=== PATIENT | female | born 1975 | race Caucasian/White ===

== ENCOUNTER 2017-04-11 17:34 | Emergency (ER) | payer MEDICAID, OTHER ==
[~2017-04-11] VITALS: Ht 167.6 cm; Wt 118.2 kg
[~2017-04-11 17:34] MED LIST: /PANT40TA PO; ATARAX PO; BUSP1TAB PO; CALC25TA PO; CIPR250T2 PO; CIPR500T89 PO; CITA10TA2 PO; DRIS1CAP PO; EXCETAB80 PO; HYDR50TA70 PO; IBUP600T26 PO; IBUP80TA OR; LEVO25TA4 PO; MELO7.5T7 PO; MINI1CAP PO; MINI2CAP PO; PAROXETINE PO; PERC5TAB PO; PYRI100T PO; REME15TA PO; RISP1TAB42 PO; SERO1TAB3 PO; SERO50TA PO; TIZA4CAP3 PO; VIST50CA PO; VITA250L PO; VITA500T53 PO; VITMTA PO; XANA0.25 PO; ZOLO100T PO
[2017-04-11] MEDS ORDERED: TOPI100T9 (17:56)
[2017-04-11] MEDS ORDERED: LATU1TAB PO (17:56)
[2017-04-11] MEDS ORDERED: OXYC-517 (17:56)
[2017-04-11] MEDS ORDERED: ONDA4TAB6 (17:56)
[2017-04-11] MEDS ORDERED: LAMO150T (17:56)
[2017-04-11] MEDS ORDERED: NS 1,000 ML IV ONE (23:45)
[2017-04-11] MEDS ORDERED: MAGNESIUM CITRATE 300 ML BTL PO ONE (23:45)
[2017-04-12] MEDS ORDERED: PERCOCET 5MG/325MG TAB PO ONE (00:15)
[2017-04-12 00:44] LABS: BASO % 0.5 % (0.0-1.0); EOS # 0.1 10^3/uL (0.0-0.50); EOS % 1.2 % (0.0-3.0); IMMATURE GRANULOCYTE % 0.3 % (0-0); LYMPH # 1.7 10^3/uL (1.5-4.5); LYMPH % 18.7 % (24.0-44.0); MEAN CORPUSCULAR HEMOGLOBIN 27.7 pg (27.0-33.0); MEAN CORPUSCULAR HGB CONC 31.8 g/dl (32.0-36.5); MEAN CORPUSCULAR VOLUME 87.3 fl (80.0-96.0); MONO # 0.5 10^3/uL (0.0-0.8); MONO % 5.4 % (0.0-5.0); NEUTROPHILS # 6.5 10^3/uL (1.8-7.7); NEUTROPHILS % 73.9 % (36.0-66.0); PLATELET COUNT, AUTOMATED 202 10^3/uL (150-450); RED CELL DISTRIBUTION WIDTH 13.3 % (11.5-14.5); WHITE BLOOD COUNT 8.9 10^3/uL (4.0-10.0)
[2017-04-12 01:07] LABS: ALBUMIN 3.5 GM/DL (3.2-5.2); ALBUMIN/GLOBULIN RATIO 0.81 (1.00-1.93); ALKALINE PHOSPHATASE 113 U/L (45-117); ALT/SGPT 16 U/L (12-78); ANION GAP 8 MEQ/L (8-16); AST/SGOT 9 U/L (7-37); BILIRUBIN,TOTAL 0.5 MG/DL (0.2-1.0); BLOOD UREA NITROGEN 9 MG/DL (7-18); CALCIUM LEVEL 9.2 MG/DL (8.5-10.1); CARBON DIOXIDE LEVEL 24 MEQ/L (21-32); CHLORIDE LEVEL 105 MEQ/L (98-107); CREATININE FOR GFR 0.67 MG/DL (0.55-1.02); GLOMERULAR FILTRATION RATE > 60.0 (>58); GLUCOSE, FASTING 77 MG/DL (70-105); POTASSIUM SERUM 3.7 MEQ/L (3.5-5.1); SODIUM LEVEL 137 MEQ/L (136-145); TOTAL PROTEIN 7.8 GM/DL (6.4-8.2)
--- NOTE | 2017-04-12 02:00 | REPUSA ---
CLINICAL HISTORY: Abdominal pain. TECHNIQUE: Multiple axial, sagittal and coronal CT images were obtained through the abdomen and pelvi s without administration of oral or IV contrast material. COMMENTS: Prior gastric bypass surgery. The liver is of uniform attenuation without mass or defect. There is no intra or extrahepatic biliary ductal dilatation. The spleen is normal. The gallbladder is surgically absent. The pancreas is of no rmal contour and attenuation characteristics. There is no evidence of adrenal mass. 3.5 cm right renal well-defined hypodense lesion, probably a cyst. The kidneys are otherwise normal in size, shape and configuration. No renal or ureteral calculi are i dentified. There is no hydroureter or hydronephrosis. There is no evidence for appendicitis. There is no bowel wall thickening. No evidence for small or la rge bowel obstruction. There is no evidence of abdominal ascites or lymphadenopathy. There is no evidence of intrinsic or extrinsic bladder mass. There is no pelvic ascites or lymphadeno cheryl. Images of the lung bases show no evidence of pleural or parenchymal mass. There are no pleural effusi ons. The bony structures are free of lytic or blastic lesions. Multilevel degenerative changes are seen in volving the thoracolumbar spine. Scattered calcifications are seen involving the aorta and major branches compatible with atherosclero sis. IMPRESSION: Gastric bypass surgery. Cholecystectomy. Right renal well-defined hypodense lesion, probably a cyst. Thank you for your kind referral of this patient.
[2017-04-12] MEDS ORDERED: ZOFR4TAB3 PO (02:15)
[2017-04-12 02:30] VITALS: BP 142/66
--- NOTE | 2017-04-12 07:29 | ED PDOC ---
Post-Departure Follow-Up radiology rpeort faxed to Rudolph Evans Sarah MD Apr 12, 2017 07:28
--- NOTE | 2017-04-12 08:22 | REP ---
Acute abdominal series three views including PA chest and supine upright abdomen: The PA chest: Comparisons 08/13/2008. The lung wood are clear. Cardiac size is normal. The rhonda, mediastinum, and bony thorax unremarkable. There is no free subdiaphragmatic air. No interval change. Impression: Negative PA chest. Abdomen, supine upright views: Comparison is 2010. The bowel gas pattern is normal. There are no calcifications. Skeletal structures and soft tissues are otherwise unremarkable. There are surgical clips in the abdominal right upper quadrant. Impression: Normal bowel gas pattern. Signed by Danial Hall MD 04/12/2017 08:14 A
== END 2017-04-12 02:31 | disposition home or self-care (01) ==
LOC: M ED 17:34
DX: K59.00 Constipation, unspecified (principal)

== ENCOUNTER → 2017-05-09 | Outpatient (CLI) | payer OTHER ==
[~2017-05-09] MED LIST changes: +ISOVUE-370 76% 100ML VIAL (Q9967) As Ordered ONE; +LAMO150T; +LATU1TAB PO; +ONDA4TAB6; +OXYC-517; +TOPI100T9; +ZOFR4TAB3 PO
== END ==
LOC: M RAD 07:59
PROVIDERS: ATTEND Internal Medicine Rheumatology
DX: R63.4 Abnormal weight loss (principal)

== ENCOUNTER → 2017-05-31 | Outpatient (CLI) | payer OTHER ==
--- NOTE | 2017-06-01 17:38 | REP ---
CT angiogram of the abdomen and pelvis with IV contrast: History: Unintentional weight loss. Abdominal pain. Comparison CT abdomen and pelvis study is from April 12, 2017. CT contrast dose: 100 ml of intravenous Isovue 370. CT technique: Helical scanning is acquired. Axial 3 mm images are reformatted. Coronal and sagittal maximum intensity projection images are generated with 3-D workstation. Surface rendered 3-D imaging is generated and viewed rotationally. In addition curved axis MPR images are generated along the course of the iliac arteries bilaterally. Nonvascular findings: Clips and sutures are seen in the upper abdomen related to patient's previous gastric bypass procedure and cholecystectomy procedure. Again noted is a simple cyst in the upper pole of the right kidney measuring 3.[address] angiographic vascular findings: A retroaortic let renal vein is seen draining into the inferior vena cava at the level of the lower pole of the kidneys. A smaller normally situated left renal vein is also seen anterior to the aorta. The renal arteries are singular and nonstenotic. The suprarenal and infrarenal abdominal aorta is widely patent and normal in caliber. The celiac and superior mesenteric arteries are unremarkable. The inferior mesenteric artery is patent and nonstenotic as well. Common iliac, internal iliac and external iliac arteries are widely patent. Maximum intensity projection, curved MPR, and 3-D surface rendered imaging shows no additional abnormality. There is no evidence of arterial stenosis or occlusion. Impression: 1. 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 No evidence of visceral or aortic or iliac stenosis or occlusion. 2. Right renal cyst. 3. Postoperative changes including gastric bypass and cholecystectomy. Signed by Arnold Pimentel MD 06/02/2017 08:02 A
== END ==
LOC: M RAD 17:24
PROVIDERS: ATTEND Internal Medicine Rheumatology
DX: R10.9 Unspecified abdominal pain (principal); R63.4 Abnormal weight loss; N28.1 Cyst of kidney, acquired; Z98.84 Bariatric surgery status
CPT/HCPCS: 74174; Q9967

== ENCOUNTER → 2018-02-07 | Outpatient (REF) | payer OTHER, MEDICAID ==
[2018-02-07 14:41] LABS: BASO # 0.1 10^3/uL (0.0-0.2); BASO % 0.7 % (0.0-1.0); EOS # 0.2 10^3/uL (0.0-0.50); EOS % 1.7 % (0.0-3.0); HEMOGLOBIN 14.3 g/dl (12.0-15.5); IMMATURE GRANULOCYTE % 0.2 % (0-3.0); LYMPH # 2.9 10^3/uL (1.5-4.5); LYMPH % 28.8 % (24.0-44.0); MEAN CORPUSCULAR HGB CONC 33.3 g/dl (32.0-36.5); MEAN CORPUSCULAR VOLUME 84.3 fl (80.0-96.0); MONO # 0.6 10^3/uL (0.0-0.8); MONO % 5.7 % (0.0-5.0); NEUTROPHILS # 6.4 10^3/uL (1.8-7.7); NEUTROPHILS % 62.9 % (36.0-66.0); PLATELET COUNT, AUTOMATED 222 10^3/uL (150-450); RED CELL DISTRIBUTION WIDTH 13.2 % (11.5-14.5); WHITE BLOOD COUNT 10.1 10^3/uL (4.0-10.0)
[2018-02-07 14:48] LABS: ALBUMIN/GLOBULIN RATIO 1.18 (1.00-1.93); ALKALINE PHOSPHATASE 92 U/L (45-117); ALT/SGPT 16 U/L (12-78); ANION GAP 10 MEQ/L (8-16); AST/SGOT 11 U/L (7-37); BILIRUBIN,TOTAL 0.6 MG/DL (0.2-1.0); BLOOD UREA NITROGEN 7 MG/DL (7-18); CALCIUM LEVEL 8.9 MG/DL (8.5-10.1); CARBON DIOXIDE LEVEL 24 MEQ/L (21-32); CHLORIDE LEVEL 106 MEQ/L (98-107); CREATININE FOR GFR 0.74 MG/DL (0.55-1.30); GLOMERULAR FILTRATION RATE > 60.0 (>58); GLUCOSE, FASTING 88 MG/DL (70-100); POTASSIUM SERUM 4.1 MEQ/L (3.5-5.1); SODIUM LEVEL 140 MEQ/L (136-145); TOTAL PROTEIN 7.4 GM/DL (6.4-8.2)
== END ==
LOC: M SFHCLERA 12:32
DX: N39.0 Urinary tract infection, site not specified (principal)
CPT/HCPCS: 80053

== ENCOUNTER 2018-07-18 12:17 | Day surgery (SDC) | payer OTHER, MEDICAID ==
[~2018-07-18] VITALS: Ht 167.6 cm; Wt 112.0 kg
[~2018-07-18 12:17] MED LIST changes: +CLON0.5T8 PO; +COLC1TAB14 PO; +DICY10CA13 PO; +FENT12DI8; +GABA-843 PO; +HYDR200T3 PO; -ISOVUE-370 76% 100ML VIAL (Q9967) As Ordered ONE; -LAMO150T; +LAMO150T2 PO; +LEVO25TA5 PO; +NS 1,000 ML IV ONE; +OMEP20CA3 PO; +ONDA4TAB6 PO; +SERT25TA PO; +TIZA4CAP PO; -TIZA4CAP3 PO; -TOPI100T9; +TOPI100T9 PO; +ZOFR4TAB14 PO; -ZOFR4TAB3 PO
[2018-07-18] MEDS ORDERED: PROPOFOL 200 MG/20 ML VIAL As Ordered ONE (13:32)
[2018-07-18] MEDS ORDERED: LIDOCAINE 2% INJ 100 MG/5 ML SDV (FOR ANES.) As Ordered ONE (13:32)
[2018-07-18] MEDS ORDERED: fentaNYL 100 MCG/2 ML INJECTION (J3010) As Ordered ONE (13:33)
[2018-07-18] MEDS ORDERED: GLYCOPYRROLATE INJ 0.2 MG/ML 2 ML VIAL As Ordered ONE (13:35)
--- NOTE | 2018-07-18 13:49 | ROOR ---
Patient Name: Daxa Booth Procedure Date: 07/18/2018 1:29 PM Date of : 1975 Age: 43 Room: [facility] Gender: Female Note Status: Finalized Procedure: Upper GI endoscopy Indications: Epigastric abdominal pain, Abdominal pain in the left upper quadrant Providers: Ilir ALICEA MD Referring MD: Rudolph HERNANDEZ Requesting Provider: Medicines: Monitored Anesthesia Care Complications: No immediate complications. Procedure: Pre-Anesthesia Assessment: - The heart rate, respiratory rate, oxygen saturations, blood pressure, adequacy of pulmonary ventilation, and response to care were monitored throughout the procedure. The Endoscope was introduced through the mouth, and advanced to the jejunum. The upper GI endoscopy was accomplished without difficulty. The patient tolerated the procedure well. Findings: The examined esophagus was normal. Evidence of a Nikki-en-Y gastrojejunostomy was found. The gastrojejunal anastomosis was characterized by healthy appearing mucosa. The exam of the stomach was otherwise normal. The examined jejunum was normal. Impression: - Normal esophagus. - Nikki-en-Y gastrojejunostomy with gastrojejunal anastomosis characterized by healthy appearing mucosa. - Otherwise normal stomach. - Normal examined jejunum. - No specimens collected. Recommendation: - Observe patient's clinical course. - Continue present medications. Ilir Alicea MD Ilir ALICEA MD 07/18/2018 1:48:49 PM This report has been signed electronically. Number of Addenda: 0 Note Initiated On: 07/18/2018 1:29 PM Estimated Blood Loss: Estimated blood loss: none.
--- NOTE | 2018-07-18 14:02 | ROOR ---
Patient Name: Daxa Booth Procedure Date: 07/18/2018 1:30 PM Date of : 1975 Age: 43 Room: [facility] Gender: Female Note Status: Finalized Procedure: Colonoscopy Indications: Generalized abdominal pain, Change in bowel habits Providers: Ilir ALICEA MD Referring MD: Rudolph HERNANDEZ Requesting Provider: Medicines: Monitored Anesthesia Care Complications: No immediate complications. Procedure: Pre-Anesthesia Assessment: - The heart rate, respiratory rate, oxygen saturations, blood pressure, adequacy of pulmonary ventilation, and response to care were monitored throughout the procedure. The Colonoscope was introduced through the anus and advanced to 10 cm into the ileum. The colonoscopy was performed without difficulty. The patient tolerated the procedure well. The quality of the bowel preparation was adequate and fair. Findings: The perianal and digital rectal examinations were normal. The terminal ileum appeared normal. Small Internal Hemorrhoids. The entire examined colon appeared normal on direct and retroflexion views. Impression: - Preparation of the colon was fair. - Small Internal Hemorrhoids. - The entire colon is normal on direct and retroflexion views. - The examined portion of the ileum was normal. - No specimens collected. - (Irritable Bowel Syndrome/IBS suspected.) Recommendation: - Use Levbid 0.375 mg Extended Tabs 1-2 tabs PO every 8-12 hours. - Discontinue Bentyl (dicyclomine). - (the script was sent to your pharmacy on file) Ilir Alicea MD Ilir ALICEA MD 07/18/2018 2:01:57 PM This report has been signed electronically. Number of Addenda: 0 Note Initiated On: 07/18/2018 1:30 PM Estimated Blood Loss: Estimated blood loss: none.
[2018-07-18 14:30] VITALS: BP 142/65
== END 2018-07-18 14:42 | disposition home or self-care (01) ==
LOC: M OPP 12:17
PROVIDERS: ATTEND Internal Medicine Gastroenterology
DX: R19.4 Change in bowel habit (principal); R10.84 Generalized abdominal pain; R10.13 Epigastric pain; R10.12 Left upper quadrant pain; Z98.0 Intestinal bypass and anastomosis status; Z79.899 Other long term (current) drug therapy; Z88.0 Allergy status to penicillin; Z88.5 Allergy status to narcotic agent; Z98.84 Bariatric surgery status; Z91.013 Allergy to seafood; Z91.018 Allergy to other foods; Z87.891 Personal history of nicotine dependence
CPT/HCPCS: 43235; 45378; J3010

== ENCOUNTER 2019-01-10 23:31 | Inpatient (IN) | payer OTHER, MEDICAID ==
[~2019-01-10] VITALS: Ht 167.6 cm; Wt 108.2 kg
[~2019-01-10 23:31] MED LIST changes: -/PANT40TA PO; -NS 1,000 ML IV ONE; -OMEP20CA3 PO; +OMEP20CA4 PO; +PROT1TAB2 PO; -SERT25TA PO; +SERT25TA85 PO
[2019-01-11 00:31] LABS: HEMOGLOBIN 14.1 g/dl (12.0-15.5); MEAN CORPUSCULAR HEMOGLOBIN 27.9 pg (27.0-33.0); PLATELET COUNT, AUTOMATED 172 10^3/uL (150-450); RED BLOOD COUNT 5.06 10^6/uL (4.00-5.40); WHITE BLOOD COUNT 6.4 10^3/uL (4.0-10.0)
[2019-01-11 00:35] LABS: AMPHETAMINES LEVEL URINE NEGATIVE (NEGATIVE); BARBITURATES URINE NEGATIVE (NEGATIVE); BENZODIAZEPINES URINE POSITIVE (NEGATIVE); CANNABINOIDS URINE POSITIVE (NEGATIVE); COCAINE METABOLITE URINE NEGATIVE (NEGATIVE); METHADONE URINE NEGATIVE (NEGATIVE); OPIATES URINE NEGATIVE (NEGATIVE); PHENCYCLIDINE URINE NEGATIVE (NEGATIVE)
[2019-01-11 00:48] LABS: HCG, SERUM QUALITATIVE NEGATIVE (NEGATIVE)
[2019-01-11 01:09] LABS: ACETAMINOPHEN LEVEL < 2.0 UG/ML (10.0-30.0); ALBUMIN 3.9 GM/DL (3.2-5.2); ALT/SGPT 23 U/L (12-78); BILIRUBIN,DIRECT < 0.1 MG/DL (0.0-0.2); BILIRUBIN,TOTAL 0.4 MG/DL (0.2-1.0); BLOOD UREA NITROGEN 12 MG/DL (7-18); CALCIUM LEVEL 8.6 MG/DL (8.5-10.1); CARBON DIOXIDE LEVEL 24 MEQ/L (21-32); CHLORIDE LEVEL 112 MEQ/L (98-107); CREATININE FOR GFR 0.87 MG/DL (0.55-1.30); ETHYL ALCOHOL (ETHANOL) < 0.003 % (0.000-0.010); GLOMERULAR FILTRATION RATE > 60.0 (>58); GLUCOSE, FASTING 73 MG/DL (70-100); POTASSIUM SERUM 3.9 MEQ/L (3.5-5.1); SALICYLATE LEVEL < 1.7 MG/DL (5.0-30.0); SODIUM LEVEL 142 MEQ/L (136-145); THYROID STIMULATING HORMONE 0.939 uIU/ML (0.358-3.740); TOTAL PROTEIN 7.4 GM/DL (6.4-8.2)
[2019-01-11] MEDS ORDERED: CLON1TAB8 PO (01:17)
[2019-01-11] MEDS ORDERED: DULO60CA35 PO (01:19)
[2019-01-11] MEDS ORDERED: LORA-436 PO (01:19)
[2019-01-11] MEDS ORDERED: LYRI200C PO (01:19)
[2019-01-11] MEDS ORDERED: NICOTINE 21MG/24HR 1 EA TRANSDERMAL TD PRN (02:00)
[2019-01-11] MEDS ORDERED: MOM 30ML SUSPENSION UDC PO PRN (02:00)
[2019-01-11] MEDS ORDERED: MAALOX 30 ML SUSP *UDC PO PRN (02:00)
[2019-01-11] MEDS ORDERED: OLANZapine ORAL DISINTEGRATING TAB 5MG PO PRN (02:00)
[2019-01-11] MEDS ORDERED: LORazepam 1 MG TAB PO STA (02:53)
[2019-01-11 04:44] VITALS: BP 120/76
[2019-01-11] MEDS: LURASIDONE 20 MG TAB (LATUDA) PO SCH (09:00)
[2019-01-11] MEDS: OMEPRAZOLE 20 MG CAP PO SCH (09:00)
[2019-01-11] MEDS: DULoxetine 30 MG CAP (CYMBALTA) PO SCH (09:00)
[2019-01-11] MEDS: LORATADINE 10 MG TAB PO SCH (09:00)
[2019-01-11] MEDS: SERTRALINE 100 MG TAB PO SCH (09:00)
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
[2019-01-11 18:00] VITALS: BP 122/93
[2019-01-11] MEDS ORDERED: DICYCLOMINE 10 MG CAP PO PRN (18:30)
[2019-01-11] MEDS ORDERED: ONDANSETRON 4 MG ORAL DISINTEGRATING TAB (Q0162 PER 1MG) PO PRN (18:30)
[2019-01-11] MEDS ORDERED: COLCHICINE 0.6 MG TAB PO PRN (18:30)
[2019-01-11] MEDS: GABAPENTIN 300 MG CAP PO PRN (21:19)
[2019-01-11] MEDS: clonazePAM 1 MG TAB PO PRN (21:19)
[2019-01-11] MEDS: PREGABALIN 100 MG CAP (LYRICA) PO SCH (21:20)
[2019-01-11] MEDS: HYDROXYCHLOROQUINE 200 MG TAB PO SCH (21:20)
[2019-01-11] MEDS: TOPIRAMATE (TopAMAX) 100 MG TAB PO SCH (21:20)
[2019-01-12] MEDS: traZODone 50 MG TAB PO PRN (00:24)
[2019-01-12] MEDS: LEVOTHYROXINE 25MCG TABLET (0.025MG) PO SCH (06:14)
[2019-01-12 06:44] VITALS: BP 120/75
[2019-01-12] MEDS: HYDROXYCHLOROQUINE 200 MG TAB PO SCH ×2 (08:01→21:04)
[2019-01-12] MEDS: OMEPRAZOLE 20 MG CAP PO SCH (08:01)
[2019-01-12] MEDS: SERTRALINE 100 MG TAB PO SCH (08:01)
[2019-01-12] MEDS: LORATADINE 10 MG TAB PO SCH (08:01)
[2019-01-12] MEDS: PREGABALIN 100 MG CAP (LYRICA) PO SCH ×2 (08:02→21:04)
[2019-01-12] MEDS: LURASIDONE 20 MG TAB (LATUDA) PO SCH (08:02)
[2019-01-12] MEDS: DULoxetine 30 MG CAP (CYMBALTA) PO SCH (08:02)
[2019-01-12 14:08] LABS: APPEARANCE, URINE CLOUDY (CLEAR); BACTERIA, URINE AUTO 1+ (NEGATIVE); BILIRUBIN, URINE AUTO NEGATIVE (NEGATIVE); BLOOD, URINE BLOOD NEGATIVE (NEGATIVE); CALCIUM OXALATE CRYSTALS SMALL; COLOR, URINE AMBER (YELLOW); GLUCOSE, URINE (UA) AUTO NEGATIVE (NEGATIVE); KETONE, URINE AUTO NEGATIVE (NEGATIVE); LEUKOCYTE ESTERASE, URINE AUTO 3+ (NEGATIVE); MUCUS, URINE LARGE (NEGATIVE); NITRITE, URINE AUTO NEGATIVE (NEGATIVE); PROTEIN, URINE AUTO 1+ mg/dL (NEGATIVE); RBC, URINE AUTO 16 /HPF (0-3); SPECIFIC GRAVITY URINE AUTO 1.021 (1.002-1.035); SQUAMOUS EPITHELIAL CELL UR AU 9 /HPF (0-6); UROBILINOGEN, URINE AUTO 0.2 mg/dL (0.0-2.0); WBC, URINE AUTO 41 /HPF (0-3)
[2019-01-12] MEDS: GABAPENTIN 300 MG CAP PO PRN (15:19)
[2019-01-12] MEDS: ACETAMINOPHEN TAB 650MG DOSE (2X325MG) PO PRN (15:20)
[2019-01-12 18:00] VITALS: BP 133/76
--- NOTE | 2019-01-12 19:28 | REPVR ---
EXAM: CT Head Without Contrast EXAM DATE/TIME: 01/12/2019 5:41 PM CLINICAL HISTORY: 43 years old, female; Injury or trauma; Fall; Initial encounter; Blunt trauma (contusions or hematomas); Additional info: Status post fall TECHNIQUE: Imaging protocol: Computed tomography images of the head without contrast. Radiation optimization: All CT scans at this facility use at least one of these dose optimization techniques: automated exposure control; mA and/or kV adjustment per patient size (includes targeted exams where dose is matched to clinical indication); or iterative reconstruction. COMPARISON: CT Head without contrast 07/27/2013 11:04 AM FINDINGS: Brain: No hemorrhage. No mass effect. No evolving territorial infarct. Ventricles: No ventriculomegaly. Bones/joints: Unremarkable. No acute fracture. Sinuses: Visualized sinuses are unremarkable. No fluid levels. Mastoid air cells: Visualized mastoid air cells are well aerated. No mastoid effusion. Soft tissues: Unremarkable. IMPRESSION: No acute intracranial abnormality seen. Electronically signed by: Alma Hoffmann On 01/12/2019 19:27:54 PM
[2019-01-12] MEDS: PALIPERIDONE 3 MG ER TAB (INVEGA) PO SCH (21:04)
[2019-01-12] MEDS: TOPIRAMATE (TopAMAX) 100 MG TAB PO SCH (21:04)
--- NOTE | 2019-01-12 21:30 | MHIPNPDOC ---
[facility] Progress Note Progress Note Inpatient Progress Note Daxa Booth MRN: N/A Date of : N/A Date of Service: 01/12/2019 History of Present Illness The patient a 43-year-old woman presented to [facility] brought in by friends and family as she had had reported auditory hallucinations with commands to kill herself. The patient describes upon meeting that she has had a history of 3 years of reported auditory hallucinations that have become much more intense over the past 2 days with a much more sinister aspect. She describes that it is not been improving despite her outpatient provider increasing her Latuda. She's currently being worked up for lupus, but is not quite sure. She has multiple psychiatric admissions and reports that she has become increasingly more depressed and worried about her safety. She describes that her appetite and concentration additionally have become deranged in the setting of her command auditory hallucinations. Interval History The patient's met with today. She describes that she is doing well on the unit. She reportedly had a fall and subsequently had a CT scan ordered of which was negative. She reports that she still has the auditory hallucination of the man's voice, but it has become less sinister on the unit. She was not started on the clozapine as it would likely be ineffective and potentially problematic given the risk, benefit and the difficulty of understanding whether this is PTSD related or pure psychosis. The patient has been attending groups and generally able to ambulate well. Nursing has noticed no significant behavioral problems. She reports paranoia last night, feeling that someone was in her room. Review Of Systems Denies any significant anxiety on the unit. Psychotherapy None on this visit. Vital Signs Reviewed. Mental Status Examination General: Fair hygiene Speech: Sparse Thought processes: Linear MSK: Smooth and coordinated gait, no signs of tremors or involuntary orofacial movements Thought content: Mildly bizarre Abstract reasoning, and computation: Intact Description of associations: Intact Description of abnormal or psychotic thoughts: Reports auditory hallucinations present in the room, but denies any want to act on these suicidal statements made by said auditory hallucinations. Does not appear to be responding to any internal stimuli during the interview and does not endorse significant paranoid ideation. Judgment: Limited Insight: Limited Orientation: Alert and orientated 3 Cognition: Grossly normal Recent and remote memory: Intact Attention span and concentration: Intact Fund of knowledge: Adequate Mood: "Fine" Affect: Euthymic with a constricted range Diagnoses Unspecified trauma/stressor related disorder Unspecified psychotic disorder Rule out trauma-related vs. malingering vs. factitious Cannabis use disorder, moderate Assessment and Plan The patient appears to continue to make some improvements. She is off the lamotrigine as it is likely unhelpful and due to her polypharmacy could be problematic with concentration changes. We'll continue to lower Latuda 40 mg daily from 60 and she reports that she is on 120 as an outpatient, but is on 60 currently here, which is part of the cross taper. We'll start Invega 3 mg nightly. Continue Sertraline at current dose. Likely psychometric testing will be done on Tuesday in order to ascertain whether the patient is experiencing PTSD versus malingering versus fictitious versus psychotic as this will likely inform the treatment and the best risk, benefit for the patient. As her mental status exam doesn't necessarily match that of an overtly psychotic individual or an acute decompensation of PTSD. Disposition The patient will need a further inpatient admission to treat her suicidal thoughts and reported auditory hallucinations. Time Spent 15 minutes [id number]. Tuesday Vital Signs Vital Signs Date Time Temp Pulse Resp B/P (MAP) Pulse Ox O2 Delivery O2 Flow Rate FiO2 01/12/19 18:00 97.4 66 18 133/76 (95) 01/11/19 04:44 99 01/10/19 23:31 Room Air Laboratory Data 24H Labs Laboratory Tests 2 01/12/19 12:20: Urine Appearance CLOUDYH, Urine Color MARLENI, Urine pH 5.0, Urine Specific [place] 1.021, Urine Protein 1+H, Urine Glucose (UA) NEGATIVE, Urine Ketones NEGATIVE, Urine Urobilinogen 0.2, Urine Bilirubin NEGATIVE, Urine Leukocyte Esterase 3+H, Urine Blood NEGATIVE, Urine Nitrite NEGATIVE, Urine WBC (Auto) 41H, Urine RBC (Auto) 16H, Urine Hyaline Casts (Auto) 1, Urine Bacteria (Auto) 1+H, Urine Squamous Epithelial Cells 9, Urine Calcium Oxalate Cryst (Auto) SMALL, Urine Mucus (Auto) LARGE, Urine Sperm (Auto) Current Medications Current Medications Medications (Trade) Dose Ordered Sig/Inga Route PRN Reason Start Time Stop Time Status Last Admin Dose Admin Acetaminophen (Tylenol Tab) 650 mg Q6HP PRN PO HEADACHE or DISCOMFORT 01/11/19 02:00 01/12/19 15:20 Al Hydrox/Mg Hydrox/Simethicone (Mylanta) 30 ml Q4HP PRN PO HEARTBURN/INDIGESTION 01/11/19 02:00 Clonazepam (KlonoPIN) 1 mg Q4HP PRN PO ANXIETY/AGITATION 01/11/19 02:00 01/11/19 21:19 Colchicine (Colcrys) 0.6 mg BID PRN PO PAIN 01/11/19 18:30 Dicyclomine HCl (Bentyl) 10 mg QID PRN PO ABDOMINAL PAIN 01/11/19 18:30 Duloxetine HCl (Cymbalta) 60 mg DAILY PO 01/11/19 09:00 01/12/19 08:02 Gabapentin (Neurontin) 600 mg Q8H PRN PO PAIN 01/11/19 18:30 01/12/19 15:19 Home Med (Med Rec Complete!) ASDIRECTED XX 01/11/19 01:30 01/11/19 01:30 DC Hydroxychloroquine Sulfate (Plaquenil) 200 mg BID PO 01/11/19 21:00 01/12/19 21:04 Levothyroxine Sodium (Synthroid) 25 mcg DAILY@0600 PO 01/12/19 06:00 01/12/19 06:14 Loratadine (Claritin) 10 mg DAILY PO 01/11/19 09:00 01/12/19 08:01 Lorazepam (Ativan) 1 mg STAT STAT PO 01/11/19 02:53 01/11/19 02:54 DC 01/11/19 03:03 Lurasidone HCl (Latuda) 40 mg DAILY PO 01/13/19 09:00 Lurasidone HCl (Latuda) 60 mg DAILY PO 01/11/19 09:00 01/12/19 20:17 DC 01/12/19 08:02 Magnesium Hydroxide (Milk Of Magnesia) 30 ml DAILYPRN PRN PO CONSTIPATION 01/11/19 02:00 Nicotine (Nicoderm Cq 21mg) 1 patch DAILY PRN TD Craving 01/11/19 02:00 Olanzapine (ZyPREXA ZYDIS) 5 mg Q4HP PRN PO AGITATION 01/11/19 02:00 01/12/19 20:17 DC 01/12/19 00:24 Omeprazole (PriLOSEC) 20 mg DAILY PO 01/11/19 09:00 01/12/19 08:01 Ondansetron HCl (Zofran Odt) 4 mg Q6H PRN PO NAUSEA 01/11/19 18:30 Paliperidone (Invega) 3 mg QHS PO 01/12/19 21:00 01/12/19 21:04 Pregabalin (Lyrica) 200 mg BID PO 01/11/19 21:00 01/12/19 21:04 Sertraline HCl (Zoloft) 100 mg DAILY PO 01/11/19 09:00 01/12/19 08:01 Topiramate (TopAMAX) 100 mg QHS PO 01/11/19 21:00 01/12/19 21:04 Trazodone HCl (Desyrel) 50 mg QHSP PRN PO INSOMNIA 01/11/19 02:00 01/12/19 00:24 Allergies Coded Allergies: morphine (Verified Allergy, Severe, hives, resp distress, 01/11/19) Penicillins (Verified Allergy, Intermediate, hives, swelling, 01/11/19) pineapple (Verified Allergy, Unknown, rash, diff breathing, 01/11/19) shellfish derived (Verified Allergy, Unknown, diff breathing, 01/11/19) LEYDI PAULINO DO Jan 12, 2019 21:30
[2019-01-13] MEDS: clonazePAM 1 MG TAB PO PRN ×2 (01:25→19:41)
[2019-01-13] MEDS: traZODone 50 MG TAB PO PRN (01:25)
[2019-01-13] MEDS: GABAPENTIN 300 MG CAP PO PRN (01:26)
[2019-01-13 04:00] VITALS: BP 134/83
--- NOTE | 2019-01-13 05:22 | REPVR ---
EXAM: CT Head Without Contrast EXAM DATE/TIME: 01/13/2019 4:52 AM CLINICAL HISTORY: 43 years old, female; Injury or trauma; Fall; Initial encounter; Blunt trauma (contusions or hematomas); Additional info: Fall and hit head TECHNIQUE: Imaging protocol: Computed tomography images of the head without contrast. Radiation optimization: All CT scans at this facility use at least one of these dose optimization techniques: automated exposure control; mA and/or kV adjustment per patient size (includes targeted exams where dose is matched to clinical indication); or iterative reconstruction. COMPARISON: CT Head without contrast 01/12/2019 6:39 PM FINDINGS: Brain: Normal. No hemorrhage. Unremarkable white matter. No mass effect. Ventricles: Normal. No ventriculomegaly. Bones/joints: Unremarkable. No acute fracture. Sinuses: Visualized sinuses are unremarkable. No fluid levels. Mastoid air cells: Visualized mastoid air cells are well aerated. No mastoid effusion. Soft tissues: Unremarkable. IMPRESSION: Negative noncontrast head CT which is unchanged from 01/12/2019. Electronically signed by: Basil Quach On 01/13/2019 05:21:58 AM
[2019-01-13] MEDS ORDERED: IBUPROFEN 600 MG TAB PO PRN (05:30)
[2019-01-13] MEDS: LEVOTHYROXINE 25MCG TABLET (0.025MG) PO SCH (05:57)
--- NOTE | 2019-01-13 06:11 | HPEPDOC ---
General Date of Admission Jan 11, 2019 at 01:49 Date of Service: Jan 13, 2019 Chief Complaint The patient is a 43-year-old female admitted with a reason for visit of Uspecified Depressive Disorder. 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 S[facility], depression and I am seeing the patient for medical history and physical and management of her medical comorbidities. As per nurses patient has fallen twice since her admission to the hospital. She had a ct head yesterday evening after her first fall which was negative for any acute events. She had another fall today at 3:45 am. She was in the bathroom pulling up her pants when she suddenly felt a tingling and numbness spreading from head to toes and loss all muscle strength and fell forward and to the left with her knees bent She hit her forehead during her fall and also the left knee. At present says her head does not hurt but her left knee is very painful on the lateral lower part and extending down towards the ankle . She is limping and cannot bear full weight on that knee. the pain is 8/10 in intensity , dull aching and throbbing in nature with radiation down the lateral side of the left leg to just above the left ankle. She says this falling episodes has been going on for 2 years. Home Medications Scheduled Clonazepam (Clonazepam) 1 Mg Tablet, 1 MG PO DAILY, (Reported) Duloxetine HCl (Duloxetine HCl) 60 Mg Capsule.dr, 60 MG PO DAILY, (Reported) Hydroxychloroquine Sulfate (Hydroxychloroquine Sulfate) 200 Mg Tab, 200 MG PO BID, (Reported) Lamotrigine (Lamotrigine) 150 Mg Tab, 150 MG PO DAILY, (Reported) Levothyroxine Sodium (Levothyroxine Sodium) 25 Mcg Tab, 25 MCG PO DAILY, (Reported) Loratadine (Loratadine) 10 Mg Tablet, 10 MG PO DAILY, (Reported) Lurasidone HCl (Latuda) 60 Mg Tab, 60 MG PO DAILY, (Reported) Omeprazole (Omeprazole) 20 Mg Cap, 20 MG PO DAILY, (Reported) Pregabalin (Lyrica) 200 Mg Capsule, 200 MG PO BID, (Reported) Sertraline Hcl (Zoloft) 100 Mg Tab, 100 MG PO DAILY, (Reported) Topiramate (Topiramate) 100 Mg Tab, 100 MG PO QHS, (Reported) Scheduled PRN Colchicine (Colcrys) 0.6 Mg Tab, 0.6 MG PO BID PRN for PAIN, (Reported) Dicyclomine HCl (Dicyclomine HCl) 10 Mg Cap, 10 MG PO QID PRN for ABDOMINAL PAIN, (Reported) Gabapentin (Gabapentin) 300 Mg Cap, 600 MG PO Q8H PRN for PAIN, (Reported) Ondansetron (Ondansetron Odt) 4 Mg Tab, 4 MG PO Q6H PRN for NAUSEA, (Reported) Allergies Coded Allergies: morphine (Verified Allergy, Severe, hives, resp distress, 01/11/19) Penicillins (Verified Allergy, Intermediate, hives, swelling, 01/11/19) pineapple (Verified Allergy, Unknown, rash, diff breathing, 01/11/19) shellfish derived (Verified Allergy, Unknown, diff breathing, 01/11/19) Past Medical History Medical History Possible Lupus, Obesity, GERD, hypothyroid, depression, anxiety, psychosis, substance use disorder, h/o morbid obesity s/p gastric bypass surgery, chronic pain, bipolar disorder, gout, suspected IBS, periodic limb movement disorder, h/o hypertension Surgical History gastric bypass surgery Nikki-en-Y gastrojejunostomy , tubal ligation, bilateral foot surgeries, cholecystectomy, dilatation and curettage, laparoscopy and release of pelvic adhesions Family History Significant Family History: Diabetes (father), Heart disease (father), Hypertension (father), Other (Mother Hypothyroid) Social History * Smoker: former Smoker (quit in 2008) Alcohol: Denies Drugs: marijuana A-FIB/CHADSVASC A-FIB History Current/History of A-Fib/PAF?: No Review of Systems Constitutional: Denies: Chills, Fever, Night Sweats Eyes: Denies: Pain, Vision change ENT: Denies: Head Aches, Ear Pain, Dysphagia Skin: Denies: Rash, Lesions, Breakdown Pulmonary: Denies: Dyspnea, Cough Cardiovascular: Denies: Chest Pain, Palpitations, Orthopnea, Paroxysmal Noc. Dyspnea, Lt Headedness Gastrointestinal: Denies: Nausea, Vomiting, Abdominal Pain, Diarrhea Genitourinary: Denies: Dysuria, Frequency, Incontinence, Retention Musculoskeletal: Reports: Joint Pain (left knee) Neurological: Reports: Weakness, Numbness; Denies: Incoordination, Change in speech, Confusion, Seizures Psych: Reports: Depression; Denies: Memory Issues Physical Examination General Exam: Positive: Alert, Cooperative, No Acute Distress Eye Exam: Positive: PERRLA, Conjunctiva & lids normal, EOMI; Negative: Sclera icteric ENT Exam: Positive: Atraumatic, Mucous membr. moist/pink, Pharynx Normal Neck Exam: Positive: Supple; Negative: JVD, thyromegaly Chest Exam: Positive: Clear to auscultation, Normal air movement Heart Exam: Positive: Rate Normal, Regular Rhythm, Normal S1, Normal S2; Negative: Murmurs, Rubs Abdomen Exam: Positive: Normal bowel sounds, Soft; Negative: Tenderness, Hepatospenomegaly Extremity Exam: Positive: Tenderness (left knee) Skin Exam: Positive: Other skin issue (scars on her abdomen and both forearam.) Neuro Exam: Positive: Normal Speech, Cranial Nerves 3-12 NL, Reflexes 2+, Other (limping after the fall) Vital Signs Vital Signs Date Time Temp Pulse Resp B/P (MAP) Pulse Ox O2 Delivery O2 Flow Rate FiO2 01/12/19 18:00 97.4 66 18 133/76 (95) 01/11/19 04:44 99 01/10/19 23:31 Room Air Laboratory Data Labs 24H Laboratory Tests 2 01/12/19 12:20: Urine Appearance CLOUDYH, Urine Color MARLENI, Urine pH 5.0, Urine Specific [place] 1.021, Urine Protein 1+H, Urine Glucose (UA) NEGATIVE, Urine Ketones NEGATIVE, Urine Urobilinogen 0.2, Urine Bilirubin NEGATIVE, Urine Leukocyte Esterase 3+H, Urine Blood NEGATIVE, Urine Nitrite NEGATIVE, Urine WBC (Auto) 41H, Urine RBC (Auto) 16H, Urine Hyaline Casts (Auto) 1, Urine Bacteria (Auto) 1+H, Urine Squamous Epithelial Cells 9, Urine Calcium Oxalate Cryst (Auto) SMALL, Urine Mucus (Auto) LARGE, Urine Sperm (Auto) Microbiology Microbiology 01/12/19 Urine Culture, Received Pending Assessment/Plan Recurrent Falls no loss of consciousness at present however did have a syncopal episode earlier this year when she hit the back of her head and had a scalp injury which had to be glued. In theat episode she was in her kitchen standing. abrasion to forehead and injury to left knee rule out orthostatic hypotension and autonomic neuropathy. This is is a high possibility with her history of Lupus check orthostatic vitals. will get an EKG, FS prn falls CT head x 2 negative will get left knee xray, Ibuprofen for pain , ice pack will benefit from one on one sitter to help with ambulation. Consider Neurology consult. UA dirty urine cultures pending patient does not have any urinary symptoms. if cultures positive with treat. 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 follows with Dr Vides in [place] request records from Dr Vides. Neuropathy on gabapentin, lyrica and cymbalta. Obesity with h/o gastric bypass surgery. Psychiatric issues as per psychiatry Plan / VTE VTE Prophylaxis Ordered?: No (frequent ambulation) HARVINDER GUPTA MD Jan 13, 2019 04:58
[2019-01-13 06:50] VITALS: BP_SYST 129; BP_SYST 131; BP_SYST 132; BP_DIAS 61; BP_DIAS 62; BP_DIAS 68
[2019-01-13] MEDS: DULoxetine 30 MG CAP (CYMBALTA) PO SCH (08:56)
[2019-01-13] MEDS: HYDROXYCHLOROQUINE 200 MG TAB PO SCH ×2 (08:56→22:15)
[2019-01-13] MEDS: PREGABALIN 100 MG CAP (LYRICA) PO SCH ×2 (08:57→22:14)
[2019-01-13] MEDS: SERTRALINE 100 MG TAB PO SCH (08:57)
[2019-01-13] MEDS: OMEPRAZOLE 20 MG CAP PO SCH ×2 (08:57→22:14)
[2019-01-13] MEDS: LORATADINE 10 MG TAB PO SCH (08:57)
[2019-01-13] MEDS ORDERED: LURASIDONE 20 MG TAB (LATUDA) PO SCH (09:00)
--- NOTE | 2019-01-13 09:14 | REP ---
Clinical: Trauma. Technique: AP, lateral, bilateral oblique and sunrise views left knee . Findings: There is no evidence for acute fracture or dislocation. No definite effusion. Mild age-related degenerative change includes subtle medial tibiofemoral joint space narrowing as well as mild increased sclerosis along the posterior patellar margin with minimal marginal patellar spurring. Impression: Mild age-related degenerative change. No acute fracture or dislocation. Electronically Signed by Harjit Oconnor MD 01/13/2019 09:05 A
[2019-01-13] MEDS: ACETAMINOPHEN TAB 650MG DOSE (2X325MG) PO PRN (09:16)
--- NOTE | 2019-01-13 10:51 | MHIPNPDOC ---
[facility] Progress Note Progress Note DATE OF SERVICE: 01/13/19 HISTORY: Per Dr. Gomez "The patient a 43-year-old woman presented to [facility] brought in by friends and family as she had had reported auditory hallucinations with commands to kill herself. The patient describes upon meeting that she has had a history of 3 years of reported auditory hallucinations that have become much more intense over the past 2 days with a much more sinister aspect. She describes that it is not been improving despite her outpatient provider increasing her Latuda. She's currently being worked up for lupus, but is not quite sure. She has multiple psychiatric admissions and reports that she has become increasingly more depressed and worried about her safety. She describes that her appetite and concentration additionally have become deranged in the setting of her command auditory hallucinations." VITAL SIGNS: See below. NEW TEST RESULTS: Bedside Glucose ([facility]) 65L (hypoglycemia could be reason for falls) medical to monitor and treat. Knee X-ray: Mild age-related degenerative change. No acute fracture or dislocation. Head CT noncontrast: Negative noncontrast head CT which is unchanged from 01/12/2019. CURRENT MEDICATIONS: See below. MENTAL STATUS EXAMINATION: General: Fair hygiene, in wheel chair s/o another fall last night Speech: reg rate/rhythm/vol Thought processes: Linear MSK: Smooth and coordinated gait, no signs of tremors or involuntary orofacial movements Thought content: denies SI/HI, no longer bizarre Abstract reasoning, and computation: Intact Description of associations: Intact Description of abnormal or psychotic thoughts: Denies auditory hallucinations. Does not appear to be responding to any internal stimuli during the interview and does not endorse significant paranoid ideation. Judgment: Limited Insight: Limited Orientation: Alert and orientated 3 Cognition: Grossly normal Recent and remote memory: Intact Attention span and concentration: Intact Fund of knowledge: Adequate Mood: "ok" Affect: Euthymic, pleasant DIAGNOSES: Unspecified trauma/stressor related disorder Unspecified psychotic disorder Rule out trauma-related vs. malingering vs. factitious Cannabis use disorder, moderate ASSESSMENT:Seen by Hospitalist last night s/p another fall and non with 1:1 sitter for safety and assist, place in a wheel chair. Pt seen and states that her mood is ok and that she's doing better psychiatrically overall, denies hallucinations, bizarre thoughts, delusions. Tolerating her medications and finding beneficial. She appears euthymic and is very pleasant. States she's being social on the milieu which is beneficial. States she slept well last night. She is attending groups and finding them helpful. She denies SI/HI, hallucinations, delusions. Pt feels safe here. MANAGEMENT PLAN: Continue Dr. Gomez's plan. TIME SPENT: 30 minutes. Vital Signs Vital Signs Date Time Temp Pulse Resp B/P (MAP) Pulse Ox O2 Delivery O2 Flow Rate FiO2 01/13/19 06:50 129/61 (83) 01/13/19 06:50 86 100 101 01/13/19 04:00 97.5 14 100 01/10/19 23:31 Room Air Laboratory Data 24H Labs Laboratory Tests 2 01/12/19 12:20: Urine Appearance CLOUDYH, Urine Color MARLENI, Urine pH 5.0, Urine Specific [place] 1.021, Urine Protein 1+H, Urine Glucose (UA) NEGATIVE, Urine Ketones NEGATIVE, Urine Urobilinogen 0.2, Urine Bilirubin NEGATIVE, Urine Leukocyte Esterase 3+H, Urine Blood NEGATIVE, Urine Nitrite NEGATIVE, Urine WBC (Auto) 41H, Urine RBC (Auto) 16H, Urine Hyaline Casts (Auto) 1, Urine Bacteria (Auto) 1+H, Urine Squamous Epithelial Cells 9, Urine Calcium Oxalate Cryst (Auto) SMALL, Urine Mucus (Auto) LARGE, Urine Sperm (Auto) 01/13/19 06:02: Bedside Glucose (Misc Panel) 65L Current Medications Current Medications Medications (Trade) Dose Ordered Sig/Inga Route PRN Reason Start Time Stop Time Status Last Admin Dose Admin Acetaminophen (Tylenol Tab) 650 mg Q6HP PRN PO HEADACHE or DISCOMFORT 01/11/19 02:00 01/13/19 09:16 Al Hydrox/Mg Hydrox/Simethicone (Mylanta) 30 ml Q4HP PRN PO HEARTBURN/INDIGESTION 01/11/19 02:00 Clonazepam (KlonoPIN) 1 mg Q4HP PRN PO ANXIETY/AGITATION 01/11/19 02:00 01/13/19 01:25 Colchicine (Colcrys) 0.6 mg BID PRN PO PAIN 01/11/19 18:30 Dicyclomine HCl (Bentyl) 10 mg QID PRN PO ABDOMINAL PAIN 01/11/19 18:30 Duloxetine HCl (Cymbalta) 60 mg DAILY PO 01/11/19 09:00 01/13/19 08:56 Gabapentin (Neurontin) 600 mg Q8H PRN PO PAIN 01/11/19 18:30 01/13/19 01:26 Home Med (Med Rec Complete!) ASDIRECTED XX 01/11/19 01:30 01/11/19 01:30 DC Hydroxychloroquine Sulfate (Plaquenil) 200 mg BID PO 01/11/19 21:00 01/13/19 08:56 Ibuprofen (Advil) 600 mg Q8HP PRN PO PAIN 01/13/19 05:30 Levothyroxine Sodium (Synthroid) 25 mcg DAILY@0600 PO 01/12/19 06:00 01/13/19 05:57 Loratadine (Claritin) 10 mg DAILY PO 01/11/19 09:00 01/13/19 08:57 Lorazepam (Ativan) 1 mg STAT STAT PO 01/11/19 02:53 01/11/19 02:54 DC 01/11/19 03:03 Lurasidone HCl (Latuda) 40 mg DAILY PO 01/13/19 09:00 01/13/19 08:57 Lurasidone HCl (Latuda) 60 mg DAILY PO 01/11/19 09:00 01/12/19 20:17 DC 01/12/19 08:02 Magnesium Hydroxide (Milk Of Magnesia) 30 ml DAILYPRN PRN PO CONSTIPATION 01/11/19 02:00 Nicotine (Nicoderm Cq 21mg) 1 patch DAILY PRN TD Craving 01/11/19 02:00 Olanzapine (ZyPREXA ZYDIS) 5 mg Q4HP PRN PO AGITATION 01/11/19 02:00 01/12/19 20:17 DC 01/12/19 00:24 Omeprazole (PriLOSEC) 20 mg BID PO 01/13/19 09:00 01/13/19 08:57 Omeprazole (PriLOSEC) 20 mg DAILY PO 01/11/19 09:00 01/13/19 05:33 DC 01/12/19 08:01 Ondansetron HCl (Zofran Odt) 4 mg Q6H PRN PO NAUSEA 01/11/19 18:30 Paliperidone (Invega) 3 mg QHS PO 01/12/19 21:00 01/12/19 21:04 Pregabalin (Lyrica) 200 mg BID PO 01/11/19 21:00 01/13/19 08:57 Sertraline HCl (Zoloft) 100 mg DAILY PO 01/11/19 09:00 01/13/19 08:57 Topiramate (TopAMAX) 100 mg QHS PO 01/11/19 21:00 01/12/19 21:04 Trazodone HCl (Desyrel) 50 mg QHSP PRN PO INSOMNIA 01/11/19 02:00 01/13/19 01:25 Allergies Coded Allergies: morphine (Verified Allergy, Severe, hives, resp distress, 01/11/19) Penicillins (Verified Allergy, Intermediate, hives, swelling, 01/11/19) pineapple (Verified Allergy, Unknown, rash, diff breathing, 01/11/19) shellfish derived (Verified Allergy, Unknown, diff breathing, 01/11/19) ALDAIR KULKARNI DO Jan 13, 2019 10:51 am
--- NOTE | 2019-01-13 16:53 | IPNPDOC ---
Text Note Date of Service 01/13/19. NOTE Patient has not been examined today. Chart reviewed and xrays reviewed CT Head with no change from prior CT and no signs of bleed/CVA, ETC Knee xray with some degenerative changes but no fracture Orthostatic blood pressures negative. Will continue to follow peripherally. VS,Fishbone, I+O VS, Fishbone, I+O Vital Signs Date Time Temp Pulse Resp B/P (MAP) Pulse Ox O2 Delivery O2 Flow Rate FiO2 01/13/19 06:50 129/61 (83) 01/13/19 06:50 86 100 101 01/13/19 04:00 97.5 14 100 01/10/19 23:31 Room Air YUVAL ROMERO DO Jan 13, 2019 16:53
[2019-01-13 18:25] VITALS: BP_SYST 103; BP_SYST 104; BP_SYST 92; BP_DIAS 54; BP_DIAS 63; BP_DIAS 70
--- NOTE | 2019-01-13 19:54 | ECGEPIP ---
[facility] Test Date: 2019-01-13 Pat Name: JAREN BRISENO Department: Room: [place] [address] Gender: Female Resource Paraprofessional: DONAVAN : 1975 Requested By: HARVINDER GUPTA Order Number: [id number] Reading MD: Ilir Pike Measurements Intervals [place] Rate: 91 P: 52 [place]: 189 QRS: 48 QRSD: 91 T: -6 QT: 372 QTc: 458 Interpretive Statements SINUS RHYTHM NONSPECIFIC T-WAVE ABNORMALITY Comparison tracing not on file Electronically Signed on 01-13-2019 19:54:02 EDT by Ilir Pike
[2019-01-13] MEDS ORDERED: NAPROXEN 250 MG TAB PO SCH (21:00)
[2019-01-13] MEDS: PALIPERIDONE 3 MG ER TAB (INVEGA) PO SCH (22:14)
[2019-01-13] MEDS: TOPIRAMATE (TopAMAX) 100 MG TAB PO SCH (22:14)
[2019-01-13 23:45] VITALS: BP_SYST 117; BP_SYST 119; BP_SYST 129; BP_DIAS 64; BP_DIAS 78; BP_DIAS 83
--- NOTE | 2019-01-14 00:08 | IPNPDOC ---
Text Note Date of Service The patient was seen on 01/14/19. NOTE Rapid assessment was called loida at 11;38 pm as pateint was found nonresponsive in bed by nurses. Patient has a one on one sitter. just prior to the event she woke up and said she was feeling funny. Sitter went to get the nurse. Nurse was there at the bedside in a few seconds and found her staring nonresponsive when called she gave 2 sternal rubs and she woke up. Her vitals were stable. Her sugar was 71. We checked also for orthostats which did not show any drop in BP but the pulse did go up by 30 points from laying down to standing position. I saw her last night and she did recognize me from then. will continue on one on one obs. Amador cerrato was given some juice and apple sauce. She is on multiple psychiatric meds, benzos . I am suspicious whether her symtom is medication related or not. I will ask the day team to discuss this with the psychiatrist. VS,Fishbone, I+O VS, Fishbone, I+O Vital Signs Date Time Temp Pulse Resp B/P (MAP) Pulse Ox O2 Delivery O2 Flow Rate FiO2 01/13/19 18:27 98.8 16 01/13/19 18:25 121 103/54 (70) 104/70 (81) 92/63 (73) 01/13/19 04:00 100 01/10/19 23:31 Room Air HARVINDER GUPTA MD Jan 14, 2019 00:08
[2019-01-14 01:30] VITALS: BP 116/73
[2019-01-14 01:32] VITALS: BP 116/73
--- NOTE | 2019-01-14 01:32 | IPNPDOC ---
Text Note Date of Service The patient was seen on 01/14/19. NOTE Again had a rapid assessment called at 1:16 am similar as before brief episode of non responsiveness about 30 secs with some twitching of the limbs, flaccid limbs, no incontinence, a little slow on coming to but alert and oriented. Stable vitals, Sugar 71. will move to PCU Medication effect/ conversion reaction VS,Fishbone, I+O VS, Fishbone, I+O Vital Signs Date Time Temp Pulse Resp B/P (MAP) Pulse Ox O2 Delivery O2 Flow Rate FiO2 01/13/19 18:27 98.8 16 01/13/19 18:25 121 103/54 (70) 104/70 (81) 92/63 (73) 01/13/19 04:00 100 01/10/19 23:31 Room Air HARVINDER GUPTA MD Jan 14, 2019 01:32
[2019-01-14 02:09] LABS: BASO # 0.1 10^3/uL (0.0-0.2); BASO % 0.8 % (0.0-1.0); EOS # 0.1 10^3/uL (0.0-0.50); EOS % 2.2 % (0.0-3.0); HEMATOCRIT 44.2 % (36.0-47.0); HEMOGLOBIN 14.2 g/dl (12.0-15.5); LYMPH # 2.8 10^3/uL (1.5-4.5); LYMPH % 44.5 % (24.0-44.0); MEAN CORPUSCULAR HEMOGLOBIN 28.1 pg (27.0-33.0); MEAN CORPUSCULAR HGB CONC 32.1 g/dl (32.0-36.5); MEAN CORPUSCULAR VOLUME 87.5 fl (80.0-96.0); MONO # 0.4 10^3/uL (0.0-0.8); MONO % 6.9 % (0.0-5.0); NEUTROPHILS # 2.8 10^3/uL (1.8-7.7); NEUTROPHILS % 45.3 % (36.0-66.0); PLATELET COUNT, AUTOMATED 168 10^3/uL (150-450); RED BLOOD COUNT 5.05 10^6/uL (4.00-5.40); WHITE BLOOD COUNT 6.3 10^3/uL (4.0-10.0)
[2019-01-14 02:28] LABS: ALBUMIN 3.5 GM/DL (3.2-5.2); ALT/SGPT 13 U/L (12-78); BILIRUBIN,TOTAL 0.3 MG/DL (0.2-1.0); BLOOD UREA NITROGEN 9 MG/DL (7-18); CALCIUM LEVEL 8.2 MG/DL (8.5-10.1); CARBON DIOXIDE LEVEL 23 MEQ/L (21-32); CHLORIDE LEVEL 113 MEQ/L (98-107); CREATININE FOR GFR 0.83 MG/DL (0.55-1.30); GLOMERULAR FILTRATION RATE > 60.0 (>58); GLUCOSE, FASTING 71 MG/DL (70-100); POTASSIUM SERUM 3.9 MEQ/L (3.5-5.1); SODIUM LEVEL 142 MEQ/L (136-145); TOTAL PROTEIN 7.1 GM/DL (6.4-8.2)
--- NOTE | 2019-01-14 09:39 | MHDSPDOC ---
[facility] Discharge Summary Discharge Summary DATE OF ADMISSION: Jan 11, 2019 at 01:49 DATE OF DISCHARGE: Jan 14, 2019 at 01:53 DISCHARGE DIAGNOSES: Unspecified trauma/stressor related disorder Unspecified psychotic disorder Rule out trauma-related vs. malingering vs. factitious Cannabis use disorder, moderate REASON FOR ADMISSION: Per Dr. Gomez "The patient a 43-year-old woman presented to [facility] brought in by friends and family as she had had reported auditory hallucinations with commands to kill herself. The patient describes upon meeting that she has had a history of 3 years of reported auditory hallucinations that have become much more intense over the past 2 days with a much more sinister aspect. She describes that it is not been improving despite her outpatient provider increasing her Latuda. She's currently being worked up for lupus, but is not quite sure. She has multiple psychiatric admissions and reports that she has become increasingly more depressed and worried about her safety. She describes that her appetite and concentration additionally have become deranged in the setting of her command auditory hallucinations." CONSULTANTS INVOLVED: medical, transferred to medical bed by rapid assessment team for cardiovascular effect early childhood teacher assistant of 01/14/19 TEST RESULTS: Bedside Glucose (Misc Panel) 65L (hypoglycemia could be reason for falls) medical to monitor and treat. Knee X-ray: Mild age-related degenerative change. No acute fracture or dislocation. Head CT noncontrast: Negative noncontrast head CT which is unchanged from 01/12/2019. TREATMENT AND PROGRESS ON THE UNIT : Pt was admitted to [facility], seen for psychiatric assessment and restarted on outpatient medical medications and outpatient latuda decreased to 40mg daily, zoloft 100mg daily, klonopin 1mg q4hrj prn anxiety, gabapentin 600mg q8hr prn pain. Her outpatient lamictal, topomax, and cymbalta were discontinued. She was started on invega 3mg qhs. Pt found her medications beneficial and tolerated them well. She had to witnessed falls on the unit that occurred when pt standing from sitting on 2 separate days in which she hit her head both times and her knee the second time so she was seen by hospitalist who put pt on 1:1 assist. On early childhood teacher assistant of 01/14/19 pt suffered a cardio vascular effect and rapid assessment team called and transferred pt to medical bed, discharged from [facility]. DISCHARGE ASSESSMENT:Per 01/13/19: "Seen by Hospitalist last night s/p another fall and non with 1:1 sitter for safety and assist, place in a wheel chair. Pt seen and states that her mood is ok and that she's doing better psychiatrically overall, denies hallucinations, bizarre thoughts, delusions. Tolerating her medications and finding beneficial. She appears euthymic and is very pleasant. States she's being social on the milieu which is beneficial. States she slept well last night. She is attending groups and finding them helpful. She denies SI/HI, hallucinations, delusions. Pt feels safe here." MENTAL STATUS EXAMINATION ON DISCHARGE: Per 01/13/19 General: Fair hygiene, in wheel chair s/o another fall last night Speech: reg rate/rhythm/vol Thought processes: Linear MSK: Smooth and coordinated gait, no signs of tremors or involuntary orofacial movements Thought content: denies SI/HI, no longer bizarre Abstract reasoning, and computation: Intact Description of associations: Intact Description of abnormal or psychotic thoughts: Denies auditory hallucinations. Does not appear to be responding to any internal stimuli during the interview and does not endorse significant paranoid ideation. Judgment: Limited Insight: Limited Orientation: Alert and orientated 3 Cognition: Grossly normal Recent and remote memory: Intact Attention span and concentration: Intact Fund of knowledge: Adequate Mood: "ok" Affect: Euthymic, pleasant MEDICATIONS ON DISCHARGE: - per medical team on medical floor. PLAN/FOLLOWUP ARRANGEMENTS: d/c with rapid assessment team to medical bed for cardiovascular effect The amount of time spent in the coordination of care for this patient was approximately 30 minutes. Vital Signs/I&Os Vital Signs Date Time Temp Pulse Resp B/P (MAP) Pulse Ox O2 Delivery O2 Flow Rate FiO2 01/14/19 01:32 75 12 116/73 100 01/13/19 23:38 98.5 01/10/19 23:31 Room Air Laboratory Data Labs 24H Laboratory Tests 2 01/13/19 13:59: Bedside Glucose (Misc Panel) 138H 01/13/19 23:45: Bedside Glucose (Misc Panel) 71 01/14/19 01:17: Bedside Glucose (Misc Panel) 71 01/14/19 01:57: Immature Granulocyte % (Auto) 0.3, White Blood Count 6.3, Red Blood Count 5.05, Hemoglobin 14.2, Hematocrit 44.2, Mean Corpuscular Volume 87.5, Mean Corpuscular Hemoglobin 28.1, Mean Corpuscular Hemoglobin Concent 32.1, Red Cell Distribution Width 14.3, Platelet Count 168, Neutrophils (%) (Auto) 45.3, Lymphocytes (%) (Auto) 44.5H, Monocytes (%) (Auto) 6.9H, Eosinophils (%) (Auto) 2.2, Basophils (%) (Auto) 0.8, Neutrophils # (Auto) 2.8, Lymphocytes # (Auto) 2.8, Monocytes # (Auto) 0.4, Eosinophils # (Auto) 0.1, Basophils # (Auto) 0.1, Nucleated Red Blood Cells % (auto) 0.0, Anion Gap 6L, Glomerular Filtration Rate > 60.0, Blood Urea Nitrogen 9, Creatinine 0.83, Sodium Level 142, Potassium Level 3.9, Chloride Level 113H, Carbon Dioxide Level 23, Calcium Level 8.2L, Aspartate Amino Transf (AST/SGOT) 5L, Alanine Aminotransferase (ALT/SGPT) 13, Alkaline Phosphatase 75, Total Bilirubin 0.3, Total Protein 7.1, Albumin 3.5, Albumin/Globulin Ratio 0.97L CBC/BMP Laboratory Tests 01/14/19 01:57 Red Blood Count 5.05, Mean Corpuscular Volume 87.5, Mean Corpuscular Hemoglobin 28.1, Mean Corpuscular Hemoglobin Concent 32.1, Red Cell Distribution Width 14.3, Neutrophils (%) (Auto) 45.3, Lymphocytes (%) (Auto) 44.5 H, Monocytes (%) (Auto) 6.9 H, Eosinophils (%) (Auto) 2.2, Basophils (%) (Auto) 0.8, Neutrophils # (Auto) 2.8, Lymphocytes # (Auto) 2.8, Monocytes # (Auto) 0.4, Eosinophils # (Auto) 0.1, Basophils # (Auto) 0.1, Calcium Level 8.2 L, Aspartate Amino Transf (AST/SGOT) 5 L, Alanine Aminotransferase (ALT/SGPT) 13, Alkaline Phosphatase 75, Total Bilirubin 0.3, Total Protein 7.1, Albumin 3.5 Microbiology Microbiology 01/12/19 Urine Culture - Final, Complete Medications Scheduled Clonazepam (Clonazepam) 1 Mg Tablet, 1 MG PO DAILY, (Reported) Duloxetine HCl (Duloxetine HCl) 60 Mg Capsule.dr, 60 MG PO DAILY, (Reported) Hydroxychloroquine Sulfate (Hydroxychloroquine Sulfate) 200 Mg Tab, 200 MG PO BID, (Reported) Lamotrigine (Lamotrigine) 150 Mg Tab, 150 MG PO DAILY, (Reported) Levothyroxine Sodium (Levothyroxine Sodium) 25 Mcg Tab, 25 MCG PO DAILY, (Reported) Loratadine (Loratadine) 10 Mg Tablet, 10 MG PO DAILY, (Reported) Lurasidone HCl (Latuda) 60 Mg Tab, 60 MG PO DAILY, (Reported) Omeprazole (Omeprazole) 20 Mg Cap, 20 MG PO DAILY, (Reported) Pregabalin (Lyrica) 200 Mg Capsule, 200 MG PO BID, (Reported) Sertraline Hcl (Zoloft) 100 Mg Tab, 100 MG PO DAILY, (Reported) Topiramate (Topiramate) 100 Mg Tab, 100 MG PO QHS, (Reported) Scheduled PRN Colchicine (Colcrys) 0.6 Mg Tab, 0.6 MG PO BID PRN for PAIN, (Reported) Dicyclomine HCl (Dicyclomine HCl) 10 Mg Cap, 10 MG PO QID PRN for ABDOMINAL PAIN, (Reported) Gabapentin (Gabapentin) 300 Mg Cap, 600 MG PO Q8H PRN for PAIN, (Reported) Ondansetron (Ondansetron Odt) 4 Mg Tab, 4 MG PO Q6H PRN for NAUSEA, (Reported) Allergies Coded Allergies: morphine (Verified Allergy, Severe, hives, resp distress, 01/11/19) Penicillins (Verified Allergy, Intermediate, hives, swelling, 01/11/19) pineapple (Verified Allergy, Unknown, rash, diff breathing, 01/11/19) shellfish derived (Verified Allergy, Unknown, diff breathing, 01/11/19) ALDAIR KULKARNI DO Jan 14, 2019 09:39
--- NOTE | 2019-01-14 15:55 | HPEPDOC ---
[facility] Medical History & Physical Date of Admission Jan 11, 2019 Date of Service: Jan 11, 2019 History and Physical CHIEF COMPLAINT: HISTORY OF PRESENT ILLNESS: [ This is a 43 year old female with multiple pmhx who was admitted to psych for hearing voices per patient . She said the voice has been the same for years and has been telling her to kill herself so she decided to get admitted to the hospital. She has multiple medical problems but currently only complain of occasional suprapubic pain and malodorous urine. She said she has hx of recurrent uti. She denied fever, chills, chest pain , sob or back pain. 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 PHYSICAL EXAMINATION: VITAL SIGNS: Gen: NAD, obese HEENT: normocephalic, atraumatic, PERRLA , EOMI, neck supple CVS: RRR, normal S1n S2, no murmur, rubs, or gallops, no edema, no jvd Resp: LCTAB, no rhonchi, wheezes, Abd : soft, no cva, mild suprapubic tenderness, normal bowel sounds, no rebound tenderness or guarding MSK: no swelling, strength 5/5 in all extremities, generalized weakness without focal deficit - chronic per pt, no tenderness , Neuro: AOAx3, no confusion Psych: normal mood and affect, good judgment LABORATORY DATA: See below MICROBIOLOGY: Please see below. ASSESSMENT: [ Assessment and Plan Psych disorder mgt per psychiatrist Suprapubic tenderness -f/u UA and ucx c/w home meds for other medical problems full code Vital Signs Vital Signs Date Time Temp Pulse Resp B/P (MAP) Pulse Ox O2 Delivery O2 Flow Rate FiO2 01/11/19 18:00 98.2 79 18 122/93 (103) 01/11/19 04:44 99 01/10/19 23:31 Room Air Laboratory Data Labs 24H Laboratory Tests 2 01/10/19 23:47: Urine Amphetamines Screen NEGATIVE, Urine Benzodiazepines Screen POSITIVEH, Urine Opiates Screen NEGATIVE, Urine Methadone Screen NEGATIVE, Urine Barbitura gladys Screen NEGATIVE, Urine Phencyclidine Screen NEGATIVE, Urine Cocaine Metabolite Screen NEGATIVE, Urine Cannabinoids Screen POSITIVEH 01/11/19 00:25: Nucleated Red Blood Cells % (auto) 0.0, Anion Gap 6L, Glomerular Filtration Rate > 60.0, Calcium Level 8.6, Aspartate Amino Transf (AST/SGOT) 18, Alanine Aminotransferase (ALT/SGPT) 23, Alkaline Phosphatase 97, Total Bilirubin 0.4, Direct Bilirubin < 0.1, Total Protein 7.4, Albumin 3.9, Albumin/Globulin Ratio 1.11, Thyroid Stimulating Hormone (TSH) 0.939, Human Chorionic Gonadotropin, Qual NEGATIVE, Salicylates Level < 1.7L, Acetaminophen Level < 2.0L, Ethyl Alcohol Level < 0.003 CBC/BMP Laboratory Tests 01/11/19 00:25 Red Blood Count 5.06, Mean Corpuscular Volume 87.0, Mean Corpuscular Hemoglobin 27.9, Mean Corpuscular Hemoglobin Concent 32.0, Red Cell Distribution Width 14.2 Home Medications Scheduled Clonazepam (Clonazepam) 1 Mg Tablet, 1 MG PO DAILY Duloxetine HCl (Duloxetine HCl) 60 Mg Capsule.dr, 60 MG PO DAILY Hydroxychloroquine Sulfate (Hydroxychloroquine Sulfate) 200 Mg Tab, 200 MG PO BID Lamotrigine (Lamotrigine) 150 Mg Tab, 150 MG PO DAILY Levothyroxine Sodium (Levothyroxine Sodium) 25 Mcg Tab, 25 MCG PO DAILY Loratadine (Loratadine) 10 Mg Tablet, 10 MG PO DAILY Lurasidone HCl (Latuda) 60 Mg Tab, 60 MG PO DAILY Omeprazole (Omeprazole) 20 Mg Cap, 20 MG PO DAILY Pregabalin (Lyrica) 200 Mg Capsule, 200 MG PO BID Sertraline Hcl (Zoloft) 100 Mg Tab, 100 MG PO DAILY Topiramate (Topiramate) 100 Mg Tab, 100 MG PO QHS Scheduled PRN Colchicine (Colcrys) 0.6 Mg Tab, 0.6 MG PO BID PRN for PAIN Dicyclomine HCl (Dicyclomine HCl) 10 Mg Cap, 10 MG PO QID PRN for ABDOMINAL PAIN Gabapentin (Gabapentin) 300 Mg Cap, 600 MG PO Q8H PRN for PAIN Ondansetron (Ondansetron Odt) 4 Mg Tab, 4 MG PO Q6H PRN for NAUSEA Allergies Coded Allergies: morphine (Verified Allergy, Severe, hives, resp distress, 01/11/19) Penicillins (Verified Allergy, Intermediate, hives, swelling, 01/11/19) pineapple (Verified Allergy, Unknown, rash, diff breathing, 01/11/19) shellfish derived (Verified Allergy, Unknown, diff breathing, 01/11/19) A-FIB/CHADSVASC A-FIB History Current/History of A-Fib/PAF?: No Current PO Anticoag Therapy: No Age/Risk Factor Scoring CHADSVASC: CHADSVASC Response (Comments) Value Age Risk Factor Age < 65 years old 0 Gender Risk Factor Female 1 Hx of CHF No 0 Hx of HTN No 0 Hx of Stroke/TIA/or VTE No 0 Hx of Diabetes No 0 Hx of Vascular Disease No 0 Total 1 Treatment Treatment ordered: NONE Reason Anticoagulant not given: Not indicated/[id number] ALBINA PACHECO MD Jan 11, 2019 23:03
[2019-01-15] MEDS ORDERED: COLC1TAB14 PO (17:13)
[2019-01-15] MEDS ORDERED: LAMO150T2 PO (17:13)
== END 2019-01-14 01:53 | disposition short-term general hospital (02) | DRG 882 ==
LOC: M ED 23:31 → M ED INP 01-11 01:49 → M PSY 01-11 03:35
PROVIDERS: ADMIT Psychiatry & Neurology Psychiatry; ATTEND Psychiatry & Neurology Addiction Medicine
DX: F43.9 Reaction to severe stress, unspecified (principal); K58.9 Irritable bowel syndrome, unspecified; F12.20 Cannabis dependence, uncomplicated; L93.1 Subacute cutaneous lupus erythematosus; K21.9 Gastro-esophageal reflux disease without esophagitis; E66.9 Obesity, unspecified; M10.9 Gout, unspecified; R29.6 Repeated falls; R41.82 Altered mental status, unspecified; E03.9 Hypothyroidism, unspecified; Z62.810 Personal history of physical and sexual abuse in childhood; Z88.0 Allergy status to penicillin; Z88.5 Allergy status to narcotic agent; Z91.013 Allergy to seafood; Z91.018 Allergy to other foods; Z79.899 Other long term (current) drug therapy; Z98.84 Bariatric surgery status; G89.29 Other chronic pain; Z90.49 Acquired absence of other specified parts of digestive tract; Z87.891 Personal history of nicotine dependence; Z76.5 Malingerer [conscious simulation]

== ENCOUNTER 2019-01-14 02:06 | Inpatient (IN) | payer OTHER, MEDICAID ==
[~2019-01-14] VITALS: Ht 167.6 cm; Wt 112.0 kg
[~2019-01-14 02:06] MED LIST changes: +CLON1TAB8 PO; +DULO60CA35 PO; +LORA-436 PO; +LYRI200C PO
[2019-01-14 02:35] VITALS: BP 122/70
[2019-01-14 04:00] VITALS: BP 125/73
--- NOTE | 2019-01-14 04:16 | HPEPDOC ---
General Date of Admission Jan 14, 2019 at 02:52 Date of Service: Jan 14, 2019 Chief Complaint The patient is a 43-year-old female admitted with a reason for visit of Syncope. 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 She has been admitted to the [facility] for psychosis, depression was transferred from [facility] for recurrent presyncopal episodes vs conversion reaction and had Rapid assessment team called twice tonight to [facility]. Patient complains of a mild headache, says that she feels that suddenly her insides will feel like a jello and then she would have a spell. she is admitted for possible presyncopal episodes vs convertiaon disorder. Home Medications Scheduled Clonazepam (Clonazepam) 1 Mg Tablet, 1 MG PO DAILY, (Reported) Duloxetine HCl (Duloxetine HCl) 60 Mg Capsule.dr, 60 MG PO DAILY, (Reported) Hydroxychloroquine Sulfate (Hydroxychloroquine Sulfate) 200 Mg Tab, 200 MG PO BID, (Reported) Lamotrigine (Lamotrigine) 150 Mg Tab, 150 MG PO DAILY, (Reported) Levothyroxine Sodium (Levothyroxine Sodium) 25 Mcg Tab, 25 MCG PO DAILY, (Reported) Loratadine (Loratadine) 10 Mg Tablet, 10 MG PO DAILY, (Reported) Lurasidone HCl (Latuda) 60 Mg Tab, 60 MG PO DAILY, (Reported) Omeprazole (Omeprazole) 20 Mg Cap, 20 MG PO DAILY, (Reported) Pregabalin (Lyrica) 200 Mg Capsule, 200 MG PO BID, (Reported) Sertraline Hcl (Zoloft) 100 Mg Tab, 100 MG PO DAILY, (Reported) Topiramate (Topiramate) 100 Mg Tab, 100 MG PO QHS, (Reported) Scheduled PRN Colchicine (Colcrys) 0.6 Mg Tab, 0.6 MG PO BID PRN for PAIN, (Reported) Dicyclomine HCl (Dicyclomine HCl) 10 Mg Cap, 10 MG PO QID PRN for ABDOMINAL PAIN, (Reported) Gabapentin (Gabapentin) 300 Mg Cap, 600 MG PO Q8H PRN for PAIN, (Reported) Ondansetron (Ondansetron Odt) 4 Mg Tab, 4 MG PO Q6H PRN for NAUSEA, (Reported) Allergies Coded Allergies: morphine (Verified Allergy, Severe, hives, resp distress, 01/11/19) Penicillins (Verified Allergy, Intermediate, hives, swelling, 01/11/19) pineapple (Verified Allergy, Unknown, rash, diff breathing, 01/11/19) shellfish derived (Verified Allergy, Unknown, diff breathing, 01/11/19) Past Medical History Medical History Possible Lupus, Obesity, GERD, hypothyroid, depression, anxiety, psychosis, substance use disorder, h/o morbid obesity s/p gastric bypass surgery, chronic pain, bipolar disorder, gout, suspected IBS, periodic limb movement disorder, h/o hypertension Surgical History gastric bypass surgery Nikki-en-Y gastrojejunostomy , tubal ligation, bilateral foot surgeries, cholecystectomy, dilatation and curettage, laparoscopy and release of pelvic adhesions Family History Diabetes (father), Heart disease (father), Hypertension (father), Other (Mother Hypothyroid) Social History * Smoker: former Smoker Alcohol: Denies Drugs: marijuana A-FIB/CHADSVASC A-FIB History Current/History of A-Fib/PAF?: No Review of Systems Constitutional: Reports: Weakness, Fatigue; Denies: Chills, Fever, Night Sweats Eyes: Denies: Pain, Vision change ENT: Reports: Head Aches Skin: Denies: Rash, Lesions, Breakdown Pulmonary: Denies: Dyspnea, Cough Cardiovascular: Denies: Chest Pain, Palpitations, Orthopnea, Paroxysmal Noc. Dyspnea, Lt Headedness Gastrointestinal: Denies: Nausea, Vomiting, Abdominal Pain, Diarrhea Genitourinary: Denies: Dysuria, Frequency, Incontinence, Retention Hematologic: Denies: Bruising, Bleeding Excessively Musculoskeletal: Denies: Neck Pain, Back Pain, Joint Pain, Muscle Pain, Spasms Neurological: Reports: Weakness Psych: Reports: Depression Physical Examination General Exam: Positive: Alert, Cooperative, No Acute Distress, Other (flat affect) Eye Exam: Positive: PERRLA, Conjunctiva & lids normal, EOMI; Negative: Sclera icteric ENT Exam: Positive: Atraumatic, Mucous membr. moist/pink, Pharynx Normal Chest Exam: Positive: Clear to auscultation, Normal air movement Heart Exam: Positive: Rate Normal, Regular Rhythm, Normal S1, Normal S2; Negative: Murmurs, Rubs Telemetry: Positive: No significant arrhythmia Abdomen Exam: Positive: Normal bowel sounds, Soft; Negative: Tenderness, Hepatospenomegaly Extremity Exam: Negative: Clubbing, Cyanosis, Edema Skin Exam: Positive: Nl turgor and temperature; Negative: Breakdown, Lesion Assessment/Plan Pre syncope vs conversion disorder Patient had 2 RAT called this night in the [facility] for brief periods of staring spells while laying down in bed. She describes that she would suddenly feels that her insides are turning to jelly and the would not be able to talk. denied any dizziness of light headedness. Would last about 20 seconds and then she would again become normal Her vital are stable. will place on telemetry will order EEG Orthostats are negative in Bp criteria but qualifies in Pulse rate criteria. Recurrent Falls no loss of consciousness at present however did have a syncopal episode earlier this year when she hit the back of her head and had a scalp injury which had to be glued. In theat episode she was in her kitchen standing. abrasion to forehead and injury to left knee continue to monitor for orthostatic hypotension and autonomic neuropathy. This is is a high possibility with her history of Lupus CT head x 2 negative Consider Neurology consult. Knee injury after fall continue Ice packs, keep it elevated continue ibuprofen. UA dirty urine culture negative. 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 follows with Dr Vides in [place] request records from Dr Vdies. Neuropathy on gabapentin, lyrica and cymbalta. Obesity with h/o gastric bypass surgery. Psychiatric issues as per psychiatry continue one on one sitter continue psychiatric meds. HARVINDER GUPTA MD Jan 14, 2019 04:16
[2019-01-14] MEDS: LEVOTHYROXINE 25MCG TABLET (0.025MG) PO SCH (07:23)
[2019-01-14 08:00] VITALS: BP 105/58
--- NOTE | 2019-01-14 08:30 | ECGEPIP ---
[facility] Test Date: 2019-01-14 Pat Name: JAREN BRISENO Department: Room: [place] [address] Gender: Female Strap Sewer: ELGIN : 1975 Requested By: HARVINDER GUPTA Order Number: [id number] Reading MD: Ilir Pike Measurements Intervals [place] Rate: 62 P: 62 MN: 197 QRS: 58 QRSD: 89 T: 12 QT: 450 QTc: 458 Interpretive Statements SINUS RHYTHM Nonspecific T wave abnormality Similar to tracing done 01-13-19 Electronically Signed on 01-14-2019 8:30:39 EDT by Ilir Pike
[2019-01-14] MEDS: clonazePAM 1 MG TAB PO SCH (09:08)
[2019-01-14] MEDS: LURASIDONE 20 MG TAB (LATUDA) PO SCH (09:08)
[2019-01-14] MEDS: PREGABALIN 100 MG CAP (LYRICA) PO SCH ×2 (09:09→20:31)
[2019-01-14] MEDS: DULoxetine 30 MG CAP (CYMBALTA) PO SCH (09:10)
[2019-01-14] MEDS: lamoTRIgine 100MG TAB PO SCH (09:10)
[2019-01-14] MEDS: PANTOPRAZOLE 40MG TAB (PROTONIX) PO SCH (09:10)
[2019-01-14] MEDS: HYDROXYCHLOROQUINE 200 MG TAB PO SCH ×2 (09:10→20:31)
[2019-01-14] MEDS: SERTRALINE 100 MG TAB PO SCH (09:10)
[2019-01-14] MEDS: HEPARIN SOD (PORCINE) 5000 UNITS/ML VIAL SC SCH ×2 (09:11→20:31)
[2019-01-14] MEDS ORDERED: PILL CUTTER 1 EACH XX PRN (09:15)
[2019-01-14 12:00] VITALS: BP 101/69
[2019-01-14] MEDS: IBUPROFEN 800 MG TAB PO PRN ×2 (12:44→20:31)
--- NOTE | 2019-01-14 12:55 | IPNPDOC ---
Text Note Date of Service The patient was seen on 01/14/19. NOTE S: patient with episode at 0700 of "staring" lasting 5-7 minutes. Evaluated by nursing and no response to sternal rub, however, when free fall arm testing performed, patient moved to hand away from face back to her side. H&P reviewed O: VItals as below General: alert/orient NAD HRRR LCTA A/P: Conversion disorder - check EEG to r/o absence seizures. All other assessment and plans per H&P note VS,Fishbone, I+O VS, Fishbone, I+O Vital Signs Date Time Temp Pulse Resp B/P (MAP) Pulse Ox O2 Delivery O2 Flow Rate FiO2 01/14/19 12:00 97.3 58 16 101/69 (80) 98 I&O- Last 24 Hours up to 6 AM 01/14/19 05:59 Intake Total 0 ml Output Total 0 ml Balance 0 ml YUVAL ROMERO DO Jan 14, 2019 12:54
[2019-01-14 16:00] VITALS: BP 130/88
[2019-01-14] MEDS ORDERED: MAGNESIUM CITRATE 300 ML BTL PO ONE (19:00)
[2019-01-14 20:00] VITALS: BP 103/57
[2019-01-14] MEDS: DOCUSATE SODIUM 100 MG CAP PO SCH (20:30)
[2019-01-14] MEDS ORDERED: TOPIRAMATE (TopAMAX) 100 MG TAB PO SCH (21:00)
[2019-01-15 00:30] VITALS: BP 121/58
[2019-01-15] MEDS ORDERED: ACETAMINOPHEN 500 MG TAB PO ONE (00:45)
[2019-01-15 04:30] VITALS: BP 122/64
[2019-01-15] MEDS: IBUPROFEN 800 MG TAB PO PRN ×2 (04:33→15:30)
[2019-01-15 04:47] LABS: BASO % 0.6 % (0.0-1.0); EOS # 0.1 10^3/uL (0.0-0.50); EOS % 2.7 % (0.0-3.0); HEMATOCRIT 37.2 % (36.0-47.0); LYMPH # 2.2 10^3/uL (1.5-4.5); LYMPH % 46.8 % (24.0-44.0); MEAN CORPUSCULAR HEMOGLOBIN 27.7 pg (27.0-33.0); MEAN CORPUSCULAR HGB CONC 32.5 g/dl (32.0-36.5); MEAN CORPUSCULAR VOLUME 85.1 fl (80.0-96.0); MONO # 0.4 10^3/uL (0.0-0.8); MONO % 7.3 % (0.0-5.0); NEUTROPHILS % 42.4 % (36.0-66.0); PLATELET COUNT, AUTOMATED 143 10^3/uL (150-450); RED BLOOD COUNT 4.37 10^6/uL (4.00-5.40); WHITE BLOOD COUNT 4.8 10^3/uL (4.0-10.0)
[2019-01-15 05:09] LABS: BLOOD UREA NITROGEN 11 MG/DL (7-18); CALCIUM LEVEL 7.8 MG/DL (8.5-10.1); CARBON DIOXIDE LEVEL 24 MEQ/L (21-32); CHLORIDE LEVEL 113 MEQ/L (98-107); GLOMERULAR FILTRATION RATE > 60.0 (>58); GLUCOSE, FASTING 70 MG/DL (70-100); POTASSIUM SERUM 4.1 MEQ/L (3.5-5.1); SODIUM LEVEL 141 MEQ/L (136-145)
[2019-01-15 05:15] LABS: HEMOGLOBIN 12.1 g/dl (12.0-15.5)
[2019-01-15] MEDS: LEVOTHYROXINE 25MCG TABLET (0.025MG) PO SCH (06:07)
[2019-01-15 08:00] VITALS: BP 126/57
[2019-01-15] MEDS: clonazePAM 1 MG TAB PO SCH (08:10)
[2019-01-15] MEDS: PANTOPRAZOLE 40MG TAB (PROTONIX) PO SCH (08:10)
[2019-01-15] MEDS: HEPARIN SOD (PORCINE) 5000 UNITS/ML VIAL SC SCH (08:10)
[2019-01-15] MEDS: DULoxetine 30 MG CAP (CYMBALTA) PO SCH (08:10)
[2019-01-15] MEDS: lamoTRIgine 100MG TAB PO SCH (08:10)
[2019-01-15] MEDS: PREGABALIN 100 MG CAP (LYRICA) PO SCH (08:11)
[2019-01-15] MEDS: HYDROXYCHLOROQUINE 200 MG TAB PO SCH (08:11)
[2019-01-15] MEDS: SERTRALINE 100 MG TAB PO SCH (08:11)
[2019-01-15] MEDS: DOCUSATE SODIUM 100 MG CAP PO SCH (08:11)
[2019-01-15] MEDS: LURASIDONE 20 MG TAB (LATUDA) PO SCH (08:11)
[2019-01-15 12:00] VITALS: BP 112/59
--- NOTE | 2019-01-15 12:57 | MHCRPDOC ---
[facility] Consultation Consultation DATE OF CONSULTATION: 01/15/19 CONSULTATION REQUESTED BY: for need for wither patient needs to return to psychiatry Date of Service: 01/15/2019 History of Present Illness The patient, a 43-year-old woman, who is being treated on the inpatient psychiatric unit for reported auditory hallucinations that did not appear to demonstrate significant signs of psychosis with the differential including factitious disorder and trauma, was transferred to the medical floor due to an episode of syncope. The patient was treated and evaluated whereas found that there appear to be no medical cause for her syncope at that time. Upon her discharge from the psychiatric unit she was psychiatrically stable reporting no AH or other concerning symptoms. Her medical providers deemed her medically stable and wished to have a psychiatric consult in order to understand whether she needed further inpatient treatment. Please see my initial history and physical for her psychosocial information. Interval History The patient's met with where she described that although the medical problems were problemsome that she no longer had the auditory hallucinations, no suicidal thoughts and no homicidal thoughts. She described that otherwise she was doing well on the new medication and that she was unclear as to why she would have the syncope. Notes appear to suggest that the patient has not demonstrated any concerning behavior while in the medical unit and has been able to attend to her needs on the inpatient unit. She does not meet criteria at this time for an involuntary psychiatric admission and has elected against a further voluntary admission on the inpatient psychiatric unit. Review Of Systems As above denies any auditory or visual hallucinations. Psychotherapy None on this visit. Vital Signs Reviewed. Mental Status Examination General: Fair Speech: Spontaneous and fluid Thought processes: Linear and logical MSK: Smooth and coordinated gait, no signs of tremors or involuntary orofacial movements Thought content: Future orientated Abstract reasoning, and computation: Intact Description of associations: Intact Description of abnormal or psychotic thoughts: Denies any suicidal or homicidal ideation. Denies any auditory or visual hallucinations. Does not appear to be responding to internal stimuli. Does not appear to be endorsing any bizarre or paranoid ideation. Judgment: fair Insight: fair Orientation: Alert and orientated 3 Cognition: Grossly normal Recent and remote memory: Intact Attention span and concentration: Intact Fund of knowledge: Adequate Mood: "okay" Affect: Mildly flat with some reactivity. Diagnoses Unspecified psychotic disorder. Rule out factitious versus trauma versus substance induced. Cannabis use disorder, moderate. Assessment and Plan The patient at this time does not need further inpatient hospitalization. I recommend continuing her Invega 3 mg nightly as well as her other psychiatric medications. Additionally, the inpatient mental health naval surface fire support planner will work to arrange a followup appointment with her outpatient psychiatrist. The patient at this time due to not meeting involuntary criteria due to lack of concerning behavior, ideation or severe impairment in her abilities to attend to her needs and not electing a further voluntary admission, may be discharged home. Time Spent 15 minutes. Tuesday Vital Signs Vital Signs Date Time Temp Pulse Resp B/P (MAP) Pulse Ox O2 Delivery O2 Flow Rate FiO2 01/15/19 08:00 96.6 97 18 126/57 (80) 98 Laboratory Data 24H Labs Laboratory Tests 2 01/15/19 04:28: Immature Granulocyte % (Auto) 0.2, White Blood Count 4.8, Red Blood Count 4.37, Hemoglobin 12.1#, Hematocrit 37.2, Mean Corpuscular Volume 85.1, Mean Corpuscular Hemoglobin 27.7, Mean Corpuscular Hemoglobin Concent 32.5, Red Cell Distribution Width 13.9, Platelet Count 143L, Neutrophils (%) (Auto) 42.4, Lymphocytes (%) (Auto) 46.8H, Monocytes (%) (Auto) 7.3H, Eosinophils (%) (Auto) 2.7, Basophils (%) (Auto) 0.6, Neutrophils # (Auto) 2.0, Lymphocytes # (Auto) 2.2, Monocytes # (Auto) 0.4, Eosinophils # (Auto) 0.1, Basophils # (Auto) 0.0, Nucleated Red Blood Cells % (auto) 0.0, Anion Gap 4L, Glomerular Filtration Rate > 60.0, Blood Urea Nitrogen 11, Creatinine 0.80, Sodium Level 141, Potassium Level 4.1, Chloride Level 113H, Carbon Dioxide Level 24, Calcium Level 7.8L Home Medications Current Medications Current Medications Medications (Trade) Dose Ordered Sig/Inga Route PRN Reason Start Time Stop Time Status Last Admin Dose Admin Clonazepam (KlonoPIN) 1 mg DAILY PO 01/14/19 09:00 01/15/19 08:10 Docusate Sodium (Colace) 100 mg BID PO 01/14/19 21:00 01/14/19 20:30 Duloxetine HCl (Cymbalta) 60 mg DAILY PO 01/14/19 09:00 01/15/19 08:10 Heparin Sodium (Porcine) (Heparin) 5,000 units Q12H SC 01/14/19 09:00 01/15/19 08:10 Hydroxychloroquine Sulfate (Plaquenil) 200 mg BID PO 01/14/19 09:00 01/15/19 08:11 Ibuprofen (Advil) 800 mg Q8HP PRN PO MODERATE PAIN (PS 5-7) 01/14/19 04:00 01/15/19 04:33 Lamotrigine (LaMICtal) 150 mg QAM PO 01/14/19 09:00 01/15/19 08:10 Levothyroxine Sodium (Synthroid) 25 mcg DAILY@06 PO 01/14/19 06:00 01/15/19 06:07 Lurasidone HCl (Latuda) 60 mg DAILY@08 PO 01/14/19 08:00 01/15/19 08:11 Pantoprazole Sodium (Protonix) 40 mg DAILY PO 01/14/19 09:00 01/15/19 08:10 Pregabalin (Lyrica) 200 mg BID PO 01/14/19 09:00 01/15/19 08:11 Sertraline HCl (Zoloft) 100 mg DAILY PO 01/14/19 09:00 01/15/19 08:11 Topiramate (TopAMAX) 100 mg QHS PO 01/14/19 21:00 01/14/19 20:31 Scheduled Clonazepam (Clonazepam) 1 Mg Tablet, 1 MG PO DAILY, (Reported) Duloxetine HCl (Duloxetine HCl) 60 Mg Capsule.dr, 60 MG PO DAILY, (Reported) Hydroxychloroquine Sulfate (Hydroxychloroquine Sulfate) 200 Mg Tab, 200 MG PO BID, (Reported) Lamotrigine (Lamotrigine) 150 Mg Tab, 150 MG PO DAILY Levothyroxine Sodium (Levothyroxine Sodium) 25 Mcg Tab, 25 MCG PO DAILY, (Reported) Loratadine (Loratadine) 10 Mg Tablet, 10 MG PO DAILY, (Reported) Lurasidone HCl (Latuda) 60 Mg Tab, 60 MG PO DAILY, (Reported) Omeprazole (Omeprazole) 20 Mg Cap, 20 MG PO DAILY, (Reported) Pregabalin (Lyrica) 200 Mg Capsule, 200 MG PO BID, (Reported) Sertraline Hcl (Zoloft) 100 Mg Tab, 100 MG PO DAILY, (Reported) Topiramate (Topiramate) 100 Mg Tab, 100 MG PO QHS, (Reported) Scheduled PRN Colchicine (Colcrys) 0.6 Mg Tab, 0.6 MG PO BID PRN for PAIN Gabapentin (Gabapentin) 300 Mg Cap, 600 MG PO Q8H PRN for PAIN, (Reported) Ondansetron (Ondansetron Odt) 4 Mg Tab, 4 MG PO Q6H PRN for NAUSEA, (Reported) Allergies Coded Allergies: morphine (Verified Allergy, Severe, hives, resp distress, 01/11/19) Penicillins (Verified Allergy, Intermediate, hives, swelling, 01/11/19) pineapple (Verified Allergy, Unknown, rash, diff breathing, 01/11/19) shellfish derived (Verified Allergy, Unknown, diff breathing, 01/11/19) LEYDI PAULINO DO Jan 15, 2019 12:57
--- NOTE | 2019-01-15 13:01 | IPNPDOC ---
Text Note Date of Service The patient was seen on 01/15/19. NOTE S: patient continues with intermittent staring spells, no loss of bowel/bladder function, no post ictal state, responds to various stimuli during episode. 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 follows with Dr Vides in [place] request records from Dr Vides. 7) Neuropathy- on gabapentin, lyrica and cymbalta. 8) Obesity with h/o gastric bypass surgery. Current Medications Medications (Trade) Dose Ordered Sig/Inga Route PRN Reason Start Time Stop Time Status Last Admin Dose Admin Clonazepam (KlonoPIN) 1 mg DAILY PO 01/14/19 09:00 01/15/19 08:10 Docusate Sodium (Colace) 100 mg BID PO 01/14/19 21:00 01/14/19 20:30 Duloxetine HCl (Cymbalta) 60 mg DAILY PO 01/14/19 09:00 01/15/19 08:10 Heparin Sodium (Porcine) (Heparin) 5,000 units Q12H SC 01/14/19 09:00 01/15/19 08:10 Hydroxychloroquine Sulfate (Plaquenil) 200 mg BID PO 01/14/19 09:00 01/15/19 08:11 Ibuprofen (Advil) 800 mg Q8HP PRN PO MODERATE PAIN (PS 5-7) 01/14/19 04:00 01/15/19 04:33 Lamotrigine (LaMICtal) 150 mg QAM PO 01/14/19 09:00 01/15/19 08:10 Levothyroxine Sodium (Synthroid) 25 mcg DAILY@06 PO 01/14/19 06:00 01/15/19 06:07 Lurasidone HCl (Latuda) 60 mg DAILY@08 PO 01/14/19 08:00 01/15/19 08:11 Pantoprazole Sodium (Protonix) 40 mg DAILY PO 01/14/19 09:00 01/15/19 08:10 Pregabalin (Lyrica) 200 mg BID PO 01/14/19 09:00 01/15/19 08:11 Sertraline HCl (Zoloft) 100 mg DAILY PO 01/14/19 09:00 01/15/19 08:11 Topiramate (TopAMAX) 100 mg QHS PO 01/14/19 21:00 01/14/19 20:31 VS,Fishbone, I+O VS, Fishbone, I+O Laboratory Tests 01/15/19 04:28 Red Blood Count 4.37, Mean Corpuscular Volume 85.1, Mean Corpuscular Hemoglobin 27.7, Mean Corpuscular Hemoglobin Concent 32.5, Red Cell Distribution Width 13.9, Neutrophils (%) (Auto) 42.4, Lymphocytes (%) (Auto) 46.8 H, Monocytes (%) (Auto) 7.3 H, Eosinophils (%) (Auto) 2.7, Basophils (%) (Auto) 0.6, Neutrophils # (Auto) 2.0, Lymphocytes # (Auto) 2.2, Monocytes # (Auto) 0.4, Eosinophils # (Auto) 0.1, Basophils # (Auto) 0.0, Calcium Level 7.8 L Vital Signs Date Time Temp Pulse Resp B/P (MAP) Pulse Ox O2 Delivery O2 Flow Rate FiO2 01/15/19 08:00 96.6 97 18 126/57 (80) 98 I&O- Last 24 Hours up to 6 AM 01/15/19 05:59 Intake Total 1140 ml Output Total 1400 ml Balance -260 ml YUVAL ROMERO DO Jan 15, 2019 13:01
[2019-01-15] MEDS ORDERED: LAMO150T2 PO (17:13)
[2019-01-15] MEDS ORDERED: COLC1TAB14 PO (17:13)
--- NOTE | 2019-01-15 20:40 | DS.PDOC ---
Discharge Summary General Date of Admission Jan 14, 2019 at 02:52 Date of Discharge 01/15/19 Attending Physician: YUVAL ROMERO DO Specialist/Consultants Involve: LEYDI PAULINO DO Specialist/Consultants Involve PCP - Dr Rudolph Gonzalez Discharge Summary PROCEDURES PERFORMED DURING STAY: EEG - pending ADMITTING DIAGNOSES: Pre syncope vs conversion disorder Recurrent Falls Knee injury after fall UA dirty Hypothyroid GERD Cutaneous Lupus / Cutaneous vasculitis DISCHARGE DIAGNOSES: 1) staring episodes (possible conversion disorder,somatization disorder or Disassociation disorder) 2) History of recurrent falls without loss of consciousness -- prior to admission 3) Knee injury after fall -prior to admission 4) Hypothyroid - 5) GERD - 6) Cutaneous lupus - prior to admission COMPLICATIONS/CHIEF COMPLAINT: Syncope. HISTORY OF PRESENT ILLNESS: 43 year old female with PMH of Obesity, GERD, hypothyroid, depression, anxiety, psychosis, substance use disorder, h/o morbid obesity s/p gastric bypass surgery, chronic pain, bipolar disorder, gout, diagnosed with possible Cutaneous Lupus in 2016 when she was breaking out with blisters over the forearms, abdomen. She has been admitted to the [facility] for psychosis, depression was t ransferred from [facility] for recurrent presyncopal episodes vs conversion reaction and had Rapid assessment team called twice tonight to [facility]. Patient complains of a mild headache, says that she feels that suddenly her insides will feel like a jello and then she would have a spell. she is admitted for possible presyncopal episodes vs convertiaon disorder. See H&P for details HOSPITAL COURSE: Patient admitted, 1:1 sitter present during hospitalization. She had recurrent episodes of staring spells lasting 1-5 minutes and intermittently responded to sternal rub, free fall arm testing, etc. Patient had EEG performed and remained hemodynamically stable. there was no loss of bowel or bladder incontinence and no post ictal episodes. She states no memory of event or duration - just "funny feeling like insides turned to jello" prior to each episode. Psychiatry consulted prior to discharge and further outpatient evaluation and treatment recommended. She was discharge home in stable condition and will follow up with PCP, mental health. PT has been ordered for her back and knee problems that were present prior to admission. She was "cleared" by PT for safe to home discharge. DISCHARGE MEDICATIONS: Please see below. ALLERGIES: Please see below. PHYSICAL EXAMINATION ON DISCHARGE: Vitals as below General: NAD AAOx3 HRRR LCTA LABORATORY DATA: Please see below. ACTIVITY: as tolerated. no driving DIET: regular DISCHARGE PLAN: discharge home with outpatient PT DISCHARGE INSTRUCTIONS: follow up with [facility] (mental health) in 1-2 weeks - they will call you for appointment follow up with Dr Rudolph Gonzalez in 1 week to review EEG results Outpatient PT eval/treat order Follow up with DR Vides in [place] for your lupus ITEMS TO FOLLOWUP ON ON OUTPATIENT: 1. EEG DISCHARGE CONDITION: stable TIME SPENT ON DISCHARGE: 30 minutes. Vital Signs/I&Os Vital Signs Date Time Temp Pulse Resp B/P (MAP) Pulse Ox O2 Delivery O2 Flow Rate FiO2 01/15/19 12:00 96.5 67 18 112/59 (76) 100 I&O- Last 24 Hours up to 6 AM 01/15/19 06:00 Intake Total 1140 ml Output Total 1400 ml Balance -260 ml Laboratory Data Labs 24H Laboratory Tests 2 01/15/19 04:28: Immature Granulocyte % (Auto) 0.2, White Blood Count 4.8, Red Blood Count 4.37, Hemoglobin 12.1#, Hematocrit 37.2, Mean Corpuscular Volume 85.1, Mean Corpuscular Hemoglobin 27.7, Mean Corpuscular Hemoglobin Concent 32.5, Red Cell Distribution Width 13.9, Platelet Count 143L, Neutrophils (%) (Auto) 42.4, Lymphocytes (%) (Auto) 46.8H, Monocytes (%) (Auto) 7.3H, Eosinophils (%) (Auto) 2.7, Basophils (%) (Auto) 0.6, Neutrophils # (Auto) 2.0, Lymphocytes # (Auto) 2.2, Monocytes # (Auto) 0.4, Eosinophils # (Auto) 0.1, Basophils # (Auto) 0.0, Nucleated Red Blood Cells % (auto) 0.0, Anion Gap 4L, Glomerular Filtration Rate > 60.0, Blood Urea Nitrogen 11, Creatinine 0.80, Sodium Level 141, Potassium Level 4.1, Chloride Level 113H, Carbon Dioxide Level 24, Calcium Level 7.8L CBC/BMP Laboratory Tests 01/15/19 04:28 Red Blood Count 4.37, Mean Corpuscular Volume 85.1, Mean Corpuscular Hemoglobin 27.7, Mean Corpuscular Hemoglobin Concent 32.5, Red Cell Distribution Width 13.9, Neutrophils (%) (Auto) 42.4, Lymphocytes (%) (Auto) 46.8 H, Monocytes (%) (Auto) 7.3 H, Eosinophils (%) (Auto) 2.7, Basophils (%) (Auto) 0.6, Neutrophils # (Auto) 2.0, Lymphocytes # (Auto) 2.2, Monocytes # (Auto) 0.4, Eosinophils # (Auto) 0.1, Basophils # (Auto) 0.0, Calcium Level 7.8 L Discharge Medications Scheduled Clonazepam (Clonazepam) 1 Mg Tablet, 1 MG PO DAILY, (Reported) Duloxetine HCl (Duloxetine HCl) 60 Mg Capsule.dr, 60 MG PO DAILY, (Reported) Hydroxychloroquine Sulfate (Hydroxychloroquine Sulfate) 200 Mg Tab, 200 MG PO BID, (Reported) Lamotrigine (Lamotrigine) 150 Mg Tab, 150 MG PO DAILY Levothyroxine Sodium (Levothyroxine Sodium) 25 Mcg Tab, 25 MCG PO DAILY, (Reported) Loratadine (Loratadine) 10 Mg Tablet, 10 MG PO DAILY, (Reported) Lurasidone HCl (Latuda) 60 Mg Tab, 60 MG PO DAILY, (Reported) Omeprazole (Omeprazole) 20 Mg Cap, 20 MG PO DAILY, (Reported) Pregabalin (Lyrica) 200 Mg Capsule, 200 MG PO BID, (Reported) Sertraline Hcl (Zoloft) 100 Mg Tab, 100 MG PO DAILY, (Reported) Topiramate (Topiramate) 100 Mg Tab, 100 MG PO QHS, (Reported) Scheduled PRN Colchicine (Colcrys) 0.6 Mg Tab, 0.6 MG PO BID PRN for PAIN Gabapentin (Gabapentin) 300 Mg Cap, 600 MG PO Q8H PRN for PAIN, (Reported) Ondansetron (Ondansetron Odt) 4 Mg Tab, 4 MG PO Q6H PRN for NAUSEA, (Reported) Allergies Coded Allergies: morphine (Verified Allergy, Severe, hives, resp distress, 01/11/19) Penicillins (Verified Allergy, Intermediate, hives, swelling, 01/11/19) pineapple (Verified Allergy, Unknown, rash, diff breathing, 01/11/19) shellfish derived (Verified Allergy, Unknown, diff breathing, 01/11/19) YUVAL ROMERO DO Jan 15, 2019 15:16
--- NOTE | 2019-01-16 15:25 | EEG ---
DATE OF PROCEDURE: 01/15/2019 DIAGNOSIS: Absence seizure versus conversion disorder. HISTORY: The patient is a 43-year-old woman with history of obesity, psychosis, depression, substance abuse, chronic pain, bipolar disorder who had new onset episode of staring, lasting for 5 - 7 minutes. The patient was evaluated by a nurse and had no response to sternal rub but when arm free fall testing was performed, the patient moved her hand away from her face and back to her side. She is currently taking Protonix, Cymbalta, Plaquenil, levothyroxine, Lyrica, clonazepam, Lamictal, Zoloft, Topamax, Latuda. TECHNICAL DESCRIPTION: This digital EEG was recorded by 21 scalp, ear and two EKG electrodes and was reviewed in bipolar and referential montages following reformatting in 10-20 international electrode placement system. INTERPRETATION: The patient was noted to be in awake and drowsy states during this EEG. Resting awake background rhythm consisted of well-formed posterior dominant rhythm with anterior/posterior gradient comprising of 10 Hz alpha activity measuring 15 - 50 microvolts in amplitude, which was symmetric and reactive to eye opening. Anteriorly low voltage and mixed frequency beta activity was noted, likely due to medication effect. Attenuation of posterior dominant rhythm was seen during transition into drowsiness. Stage I and II sleep were reviewed and were symmetric bilaterally. Hyperventilation could not be performed. Photic stimulation remained unremarkable. EKG revealed normal sinus rhythm. No focal, lateralizing or epileptiform abnormalities were seen. No clinical or electrographic seizures were recorded. CONCLUSION This EEG in awake, drowsy states, stage I and II sleep is within normal limits.
== END 2019-01-15 18:00 | disposition home or self-care (01) | DRG 880 ==
LOC: M ED INP 02:52 → M PCU 03:02
PROVIDERS: ADMIT Internal Medicine Nephrology; ATTEND Internal Medicine Nephrology
DX: F44.4 Conversion disorder with motor symptom or deficit (principal); E66.9 Obesity, unspecified; K21.9 Gastro-esophageal reflux disease without esophagitis; E03.9 Hypothyroidism, unspecified; F31.9 Bipolar disorder, unspecified; F41.9 Anxiety disorder, unspecified; R55 Syncope and collapse; G89.29 Other chronic pain; M10.9 Gout, unspecified; G62.9 Polyneuropathy, unspecified; L93.1 Subacute cutaneous lupus erythematosus; Z79.899 Other long term (current) drug therapy; Z88.0 Allergy status to penicillin; Z88.5 Allergy status to narcotic agent; Z91.013 Allergy to seafood; Z91.018 Allergy to other foods; Z90.49 Acquired absence of other specified parts of digestive tract; Z87.891 Personal history of nicotine dependence; Z98.84 Bariatric surgery status; Z68.39 Body mass index [BMI] 39.0-39.9, adult

== ENCOUNTER 2021-07-20 13:37 | Emergency (ER) | payer MEDICAID, OTHER ==
[~2021-07-20] VITALS: Ht 167.6 cm; Wt 90.9 kg
[~2021-07-20 13:37] MED LIST changes: +CLON0.5T2 PO; -CLON0.5T8 PO; +GABA-282 PO; -GABA-843 PO; -LAMO150T2 PO; +LAMO150T3 PO; -LORA-436 PO; +LORA-930 PO; +MIRT-62 PO; +OMEP1CAP73 PO; -OMEP20CA4 PO
[2021-07-20 14:29] LABS: BASO # 0.1 10^3/uL (0.0-0.2); BASO % 0.7 % (0.0-1.0); EOS # 0.1 10^3/uL (0.0-0.5); HEMATOCRIT 40.1 % (36.0-47.0); HEMOGLOBIN 12.7 g/dl (12.0-15.5); LYMPH # 3.2 10^3/uL (1.5-5.0); MEAN CORPUSCULAR HEMOGLOBIN 28.3 pg (27.0-33.0); MEAN CORPUSCULAR HGB CONC 31.7 g/dl (32.0-36.5); MEAN CORPUSCULAR VOLUME 89.3 fl (80.0-96.0); MONO # 0.4 10^3/uL (0.0-0.8); MONO % 6.4 % (2.0-8.0); NEUTROPHILS # 3.1 10^3/uL (1.5-8.5); NEUTROPHILS % 44.8 % (36.0-66.0); PLATELET COUNT, AUTOMATED 178 10^3/uL (150-450); RED BLOOD COUNT 4.49 10^6/uL (4.00-5.40); WHITE BLOOD COUNT 6.9 10^3/uL (4.0-10.0)
[2021-07-20] MEDS ORDERED: GI COCKTAIL 50ML BTL(HYOSCYAMINE/MAALOX/LIDOCAINE VISCOUS)(1:3:1) PO ONE (14:45)
[2021-07-20 15:05] LABS: ALBUMIN 3.2 GM/DL (3.2-5.2); ALT/SGPT 15 U/L (12-78); BILIRUBIN,DIRECT < 0.1 MG/DL (0.0-0.2); BILIRUBIN,TOTAL < 0.1 MG/DL (0.2-1.0); BLOOD UREA NITROGEN 11 MG/DL (7-18); CALCIUM LEVEL 8.2 MG/DL (8.5-10.1); CARBON DIOXIDE LEVEL 25 MEQ/L (21-32); CHLORIDE LEVEL 109 MEQ/L (98-107); CREATININE FOR GFR 0.76 MG/DL (0.55-1.30); FREE T4 0.66 NG/DL (0.76-1.46); GLOMERULAR FILTRATION RATE > 60.0 (>58); GLUCOSE, FASTING 62 MG/DL (70-100); POTASSIUM SERUM 3.8 MEQ/L (3.5-5.1); SODIUM LEVEL 140 MEQ/L (136-145); TOTAL PROTEIN 6.1 GM/DL (6.4-8.2)
[2021-07-20] MEDS ORDERED: KETOROLAC 30 MG/ML 1ML VIAL IV ONE (15:15)
[2021-07-20 15:33] LABS: HCG, SERUM QUALITATIVE NEGATIVE (NEGATIVE)
[2021-07-20] MEDS ORDERED: ISOVUE-370 76% 100ML VIAL As Ordered ONE (15:38)
[2021-07-20 16:45] VITALS: BP 142/72
[2021-07-20] MEDS ORDERED: KETO10TAB PO (17:04)
== END 2021-07-20 17:33 | disposition home or self-care (01) ==
LOC: M ED 13:37
DX: R07.89 Other chest pain (principal); R09.1 Pleurisy; I10 Essential (primary) hypertension; K21.9 Gastro-esophageal reflux disease without esophagitis; F31.9 Bipolar disorder, unspecified; F41.9 Anxiety disorder, unspecified; E03.9 Hypothyroidism, unspecified; Z87.891 Personal history of nicotine dependence; Z88.0 Allergy status to penicillin; Z88.5 Allergy status to narcotic agent; Z91.013 Allergy to seafood; Z79.890 Hormone replacement therapy; Z79.899 Other long term (current) drug therapy
CPT/HCPCS: 71046; 71275; 80048; 80076; 84439; 84443; 84484; 84703; 85025; 93005; 93041; 94760; 96374; 99285; J1885; Q9967

== ENCOUNTER 2021-10-10 15:59 | Emergency (ER) | payer OTHER ==
[~2021-10-10] VITALS: Ht 167.6 cm; Wt 108.1 kg
[2021-10-10 15:59] VITALS: BP 140/80
[~2021-10-10 15:59] MED LIST changes: +KETO10TAB PO
[2021-10-10] MEDS ORDERED: DOXE50CA (16:08)
[2021-10-10] MEDS ORDERED: TRAM50TA2 (16:08)
[2021-10-10] MEDS ORDERED: DOXE25CA (16:08)
[2021-10-10] MEDS ORDERED: RISP-9 (16:08)
[2021-10-10] MEDS ORDERED: FLUO20CA22 (16:08)
[2021-10-10] MEDS ORDERED: TIZA10TA (16:08)
== END 2021-10-10 17:44 | disposition home or self-care (01) ==
LOC: M ED 15:59
DX: S90.31XA Contusion of right foot, initial encounter (principal); S93.509A Unspecified sprain of unspecified toe(s), initial encounter; W01.0XXA Fall on same level from slipping, tripping and stumbling without subsequent striking against object, initial encounter; Y92.009 Unspecified place in unspecified non-institutional (private) residence as the place of occurrence of the external cause; Y93.9 Activity, unspecified; Y99.9 Unspecified external cause status; M77.30 Calcaneal spur, unspecified foot; K21.9 Gastro-esophageal reflux disease without esophagitis; E03.9 Hypothyroidism, unspecified; F41.9 Anxiety disorder, unspecified; F31.9 Bipolar disorder, unspecified; E66.9 Obesity, unspecified; Z88.0 Allergy status to penicillin; Z88.6 Allergy status to analgesic agent; Z91.013 Allergy to seafood; Z91.018 Allergy to other foods; Z79.899 Other long term (current) drug therapy

== ENCOUNTER 2022-05-25 13:36 | Inpatient (IN) | payer OTHER ==
[~2022-05-25] VITALS: Ht 167.6 cm; Wt 109.1 kg
[~2022-05-25 13:36] MED LIST changes: +DOXE25CA; +DOXE50CA; +FLUO20CA22; +RISP-9; +TIZA10TA PO; +TRAM50TA2 PO
[2022-05-25] MEDS ORDERED: CLINDAMYCIN 600 MG in IV 1 EA IV ONE (14:10)
[2022-05-25] MEDS ORDERED: NS 500 ML IV ONE (14:10)
[2022-05-25 15:02] LABS: BASO # 0.1 10^3/uL (0.0-0.2); BASO % 0.5 % (0.0-1.0); EOS # 0.2 10^3/uL (0.0-0.5); EOS % 1.7 % (0.0-3.0); HEMATOCRIT 42.3 % (36.0-47.0); HEMOGLOBIN 12.8 g/dl (12.0-15.5); LYMPH # 1.5 10^3/uL (1.5-5.0); LYMPH % 15.6 % (24.0-44.0); MEAN CORPUSCULAR HEMOGLOBIN 26.1 pg (27.0-33.0); MEAN CORPUSCULAR HGB CONC 30.3 g/dl (32.0-36.5); MEAN CORPUSCULAR VOLUME 86.2 fl (80.0-96.0); MONO # 0.6 10^3/uL (0.0-0.8); MONO % 6.6 % (2.0-8.0); NEUTROPHILS # 7.2 10^3/uL (1.5-8.5); NEUTROPHILS % 75.3 % (36.0-66.0); PLATELET COUNT, AUTOMATED 160 10^3/uL (150-450); RED BLOOD COUNT 4.91 10^6/uL (4.00-5.40); WHITE BLOOD COUNT 9.6 10^3/uL (4.0-10.0)
[2022-05-25 15:22] LABS: MAGNESIUM LEVEL 1.7 MG/DL (1.8-2.4)
[2022-05-25 15:24] LABS: ALBUMIN 3.2 G/DL (3.2-5.2); ALKALINE PHOSPHATASE 105 U/L (46-116); ALT/SGPT 25 U/L (7.0-40); AST/SGOT 29 U/L (<34); BILIRUBIN,TOTAL 0.5 MG/DL (0.3-1.2); BLOOD UREA NITROGEN 6 MG/DL (9-23); CALCIUM LEVEL 8.6 MG/DL (8.5-10.1); CARBON DIOXIDE LEVEL 24 MMOL/L (20-31); CHLORIDE LEVEL 103 MMOL/L (98-107); CK-MB VALUE MASS < 1.0 NG/ML (<3.6); CREATININE FOR GFR 0.73 MG/DL (0.55-1.30); GLOMERULAR FILTRATION RATE > 60.0 (>58); GLUCOSE, FASTING 115 MG/DL (60-100); POTASSIUM SERUM 4.7 MMOL/L (3.5-5.1); SODIUM LEVEL 135 MMOL/L (136-145); TOTAL PROTEIN 6.6 G/DL (5.7-8.2)
[2022-05-25] MEDS ORDERED: LATU80TA2 PO (15:24)
[2022-05-25] MEDS ORDERED: ZOLO100T PO (15:24)
[2022-05-25] MEDS ORDERED: BELS1TAB2 PO (15:24)
[2022-05-25] MEDS ORDERED: ISOVUE-370 76% 100ML VIAL As Ordered ONE (15:27)
[2022-05-25 15:42] LABS: CPK CREATINE PHOSPHOKINASE 69 U/L (34-145); MB/CK RELATIVE INDEX 1.44 (< OR =4)
[2022-05-25] MEDS ORDERED: MAGNESIUM OXIDE 400MG TAB (MAG-OX) PO ONE (16:10)
[2022-05-25] MEDS ORDERED: KETOROLAC 30 MG/ML 1ML VIAL IV ONE (16:50)
[2022-05-25] MEDS ORDERED: TOPI50TA9 PO (17:13)
[2022-05-25] MEDS ORDERED: LORA-674 PO (17:13)
[2022-05-25] MEDS ORDERED: ARIP1TAB6 PO (17:13)
[2022-05-25] MEDS ORDERED: ONDA4TAB6 PO (17:13)
[2022-05-25] MEDS ORDERED: HYDR200T3 PO (17:13)
[2022-05-25] MEDS ORDERED: LEVO25TA5 PO (17:13)
[2022-05-25] MEDS ORDERED: OMEP-173 PO (17:13)
[2022-05-25] MEDS ORDERED: HOME MED LIST COMPLETE! XX SCH (17:15)
[2022-05-25] MEDS ORDERED: cefTRIAXone SOD 1 GM in D5W MINI-BAG PLUS 50 ML IV SCH (17:30)
[2022-05-25] MEDS ORDERED: ONDANSETRON 4MG ORAL DISINTEGRATING TAB PO PRN (17:30)
[2022-05-25] MEDS ORDERED: NS 1,000 ML IV ONE (17:55)
[2022-05-25 18:07] LABS: RSV AMPLIFICATION NEGATIVE (NEGATIVE)
[2022-05-25] MEDS: NS 1,000 ML IV SCH (19:39)
[2022-05-25] MEDS ORDERED: ERTAPENEM SODIUM 1 GM in NS MINI-BAG PLUS 50 ML IV SCH (20:00)
[2022-05-25] MEDS ORDERED: HYDROXYCHLOROQUINE 200 MG TAB PO SCH (21:00)
[2022-05-25] MEDS ORDERED: LURASIDONE HCL 40MG TAB (LATUDA) PO SCH (21:00)
[2022-05-25] MEDS ORDERED: SERTRALINE 100 MG TAB PO SCH (21:00)
[2022-05-25] MEDS ORDERED: TOPIRAMATE (TopAMAX) 25 MG TAB PO SCH (21:00)
[2022-05-25] MEDS ORDERED: OMEPRAZOLE 20MG CAP PO SCH (21:00)
[2022-05-25] MEDS ORDERED: tiZANidine 4 MG TAB PO SCH (21:00)
[2022-05-25] MEDS ORDERED: traMADol 50 MG TAB PO SCH (21:00)
[2022-05-25] MEDS: metroNIDAZOLE (FLAGYL) 500MG TABLET PO SCH (23:46)
[2022-05-25] MEDS: HEPARIN SOD (PORCINE) 5000UNITS/ML 1ML VIAL/SYRINGE SQ SCH (23:53)
[2022-05-26] MEDS ORDERED: KETOROLAC 30 MG/ML 1ML VIAL IV PRN (02:45)
[2022-05-26] MEDS: NS 1,000 ML IV SCH (02:54)
[2022-05-26] MEDS ORDERED: traMADol 50 MG TAB PO ONE (03:00)
[2022-05-26] MEDS: metroNIDAZOLE (FLAGYL) 500MG TABLET PO SCH (05:30)
[2022-05-26] MEDS: HEPARIN SOD (PORCINE) 5000UNITS/ML 1ML VIAL/SYRINGE SQ SCH (05:31)
[2022-05-26 05:50] LABS: HEMATOCRIT 41.1 % (36.0-47.0); HEMOGLOBIN 12.6 g/dl (12.0-15.5); MEAN CORPUSCULAR HEMOGLOBIN 26.2 pg (27.0-33.0); MEAN CORPUSCULAR HGB CONC 30.7 g/dl (32.0-36.5); MEAN CORPUSCULAR VOLUME 85.4 fl (80.0-96.0); PLATELET COUNT, AUTOMATED 151 10^3/uL (150-450); RED BLOOD COUNT 4.81 10^6/uL (4.00-5.40)
[2022-05-26] MEDS ORDERED: LEVOTHYROXINE 25MCG TABLET (0.025MG) PO SCH (06:00)
[2022-05-26 06:20] LABS: MAGNESIUM LEVEL 1.8 MG/DL (1.8-2.4)
[2022-05-26 06:22] LABS: BLOOD UREA NITROGEN 8 MG/DL (9-23); CALCIUM LEVEL 8.9 MG/DL (8.5-10.1); CARBON DIOXIDE LEVEL 23 MMOL/L (20-31); CHLORIDE LEVEL 108 MMOL/L (98-107); GLOMERULAR FILTRATION RATE > 60.0 (>58); GLUCOSE, FASTING 164 MG/DL (60-100); PHOSPHORUS LEVEL 3.4 MG/DL (2.5-4.9); POTASSIUM SERUM 4.5 MMOL/L (3.5-5.1); SODIUM LEVEL 139 MMOL/L (136-145)
[2022-05-26] MEDS ORDERED: cefTRIAXone SOD 1 GM in D5W MINI-BAG PLUS 50 ML IV SCH (08:00)
[2022-05-26 08:01] VITALS: BP 166/70
[2022-05-26] MEDS ORDERED: LORATADINE 10 MG TAB PO SCH (09:00)
[2022-05-26] MEDS ORDERED: METR-265 PO (10:01)
[2022-05-26] MEDS ORDERED: PRED10TA2 PO (10:01)
[2022-05-26] MEDS ORDERED: CEPH500C PO (10:01)
== END 2022-05-26 10:10 | disposition left against medical advice (07) | DRG 603 ==
LOC: M ED 13:36 → M ED INP 17:10
PROVIDERS: ADMIT Internal Medicine; ATTEND Internal Medicine
DX: L03.221 Cellulitis of neck (principal); K12.2 Cellulitis and abscess of mouth; E03.9 Hypothyroidism, unspecified; F31.9 Bipolar disorder, unspecified; I10 Essential (primary) hypertension; K21.9 Gastro-esophageal reflux disease without esophagitis; M10.9 Gout, unspecified; G89.29 Other chronic pain; I95.1 Orthostatic hypotension; E86.9 Volume depletion, unspecified; L93.0 Discoid lupus erythematosus; Z88.8 Allergy status to other drugs, medicaments and biological substances; Z88.5 Allergy status to narcotic agent; Z88.0 Allergy status to penicillin; Z91.013 Allergy to seafood; Z91.018 Allergy to other foods; Z79.899 Other long term (current) drug therapy; R41.9 Unspecified symptoms and signs involving cognitive functions and awareness; E66.9 Obesity, unspecified

== ENCOUNTER 2022-06-05 15:49 | Inpatient (IN) | payer OTHER ==
[~2022-06-05] VITALS: Ht 167.6 cm; Wt 109.0 kg
[~2022-06-05 15:49] MED LIST changes: +ARIP1TAB6 PO; +BELS1TAB2 PO; +CEPH500C PO; +LATU80TA2 PO; +LORA-674 PO; +METR-265 PO; +OMEP-173 PO; +PRED10TA2 PO; +TOPI50TA9 PO
[2022-06-05] MEDS ORDERED: NS 1,000 ML IV ONE (16:35)
[2022-06-05] MEDS ORDERED: fentaNYL 100 MCG/2 ML INJECTION IV ONE (16:40)
[2022-06-05 16:43] LABS: VENOUS BASE EXCESS -2.8 (-2.0-2.0); VENOUS HCO3 22.5 MEQ/L (23.0-27.0); VENOUS O2 SATURATION 83.4 % (60.0-80.0); VENOUS PARTIAL PRESSURE CO2 40.8 mmHg (38.0-50.0); VENOUS PH 7.359 UNITS (7.330-7.430); VENOUS STANDARD HCO3 21.8 MEQ/L; VENOUS TOTAL CO2 23.7 MEQ/L (24.0-28.0)
[2022-06-05 16:48] LABS: BASO # 0.1 10^3/uL (0.0-0.2); BASO % 0.4 % (0.0-1.0); EOS % 0.1 % (0.0-3.0); HEMATOCRIT 40.6 % (36.0-47.0); HEMOGLOBIN 12.7 g/dl (12.0-15.5); LYMPH # 1.6 10^3/uL (1.5-5.0); LYMPH % 11.6 % (24.0-44.0); MEAN CORPUSCULAR HEMOGLOBIN 26.3 pg (27.0-33.0); MEAN CORPUSCULAR HGB CONC 31.3 g/dl (32.0-36.5); MEAN CORPUSCULAR VOLUME 84.2 fl (80.0-96.0); MONO # 0.3 10^3/uL (0.0-0.8); MONO % 2.5 % (2.0-8.0); NEUTROPHILS # 11.4 10^3/uL (1.5-8.5); NEUTROPHILS % 84.8 % (36.0-66.0); PLATELET COUNT, AUTOMATED 295 10^3/uL (150-450); RED BLOOD COUNT 4.82 10^6/uL (4.00-5.40); WHITE BLOOD COUNT 13.5 10^3/uL (4.0-10.0)
[2022-06-05 17:13] LABS: MAGNESIUM LEVEL 1.9 MG/DL (1.8-2.4)
[2022-06-05 17:14] LABS: BLOOD UREA NITROGEN 7 MG/DL (9-23); CALCIUM LEVEL 8.5 MG/DL (8.5-10.1); CARBON DIOXIDE LEVEL 25 MMOL/L (20-31); CHLORIDE LEVEL 103 MMOL/L (98-107); CK-MB VALUE MASS < 1.0 NG/ML (<3.6); CREATININE FOR GFR 0.97 MG/DL (0.55-1.30); GLOMERULAR FILTRATION RATE > 60.0 (>58); GLUCOSE, FASTING 134 MG/DL (60-100); POTASSIUM SERUM 4.5 MMOL/L (3.5-5.1); SODIUM LEVEL 138 MMOL/L (136-145)
[2022-06-05 17:17] LABS: FREE T4 1.03 NG/DL (0.89-1.76); THYROID STIMULATING HORMONE 1.687 uIU/ML (0.55-4.78)
[2022-06-05 17:19] LABS: CPK CREATINE PHOSPHOKINASE 148 U/L (34-145); MB/CK RELATIVE INDEX 0.67 (< OR =4)
[2022-06-05] MEDS ORDERED: cefTRIAXone SOD 2 GM in D5W MINI-BAG PLUS 50 ML IV ONE (17:20)
[2022-06-05] MEDS ORDERED: NS 2,270 ML in IV 1 EA IV ONE (17:30)
[2022-06-05 17:31] LABS: HCG, SERUM QUALITATIVE NEGATIVE (NEGATIVE)
[2022-06-05] MEDS ORDERED: ISOVUE-370 76% 100ML VIAL As Ordered ONE (17:36)
[2022-06-05 17:48] LABS: LIPASE 42 U/L (12-53)
[2022-06-05 17:50] LABS: ALBUMIN 3.4 G/DL (3.2-5.2); ALKALINE PHOSPHATASE 70 U/L (46-116); ALT/SGPT 12 U/L (7.0-40); AST/SGOT 20 U/L (<34); BILIRUBIN,DIRECT 0.1 MG/DL (<0.4); BILIRUBIN,TOTAL 0.3 MG/DL (0.3-1.2); TOTAL PROTEIN 6.6 G/DL (5.7-8.2)
[2022-06-05 18:54] LABS: CK-MB VALUE MASS < 1.0 NG/ML (<3.6)
[2022-06-05 18:58] LABS: CPK CREATINE PHOSPHOKINASE 125 U/L (34-145)
[2022-06-05 19:07] LABS: RSV AMPLIFICATION NEGATIVE (NEGATIVE)
[2022-06-05] MEDS ORDERED: ACETAMINOPHEN TAB 650MG DOSE (2X325MG) PO PRN (19:55)
[2022-06-05] MEDS ORDERED: ONDANSETRON 4MG 2ML VIAL IV PRN (20:00)
[2022-06-05] MEDS ORDERED: CEPACOL LOZENGE PO PRN (20:00)
[2022-06-05] MEDS ORDERED: CHLORASEPTIC SPRAY MT PRN (20:00)
[2022-06-05] MEDS ORDERED: CEPH500C PO (20:03)
[2022-06-05] MEDS ORDERED: VITA1CAP4 PO (20:03)
[2022-06-05] MEDS ORDERED: PRED10TA2 PO (20:03)
[2022-06-05] MEDS ORDERED: METR-265 PO (20:03)
[2022-06-05] MEDS ORDERED: VITA500T40 PO (20:03)
[2022-06-05] MEDS ORDERED: ACET-683 PO (20:03)
[2022-06-05] MEDS ORDERED: HOME MED LIST COMPLETE! XX SCH (20:05)
[2022-06-05] MEDS ORDERED: LURASIDONE HCL 40MG TAB (LATUDA) PO SCH (21:00)
[2022-06-05] MEDS ORDERED: traMADol 50 MG TAB PO SCH (21:00)
[2022-06-05] MEDS ORDERED: HYDROXYCHLOROQUINE 200 MG TAB PO SCH (21:00)
[2022-06-05] MEDS ORDERED: tiZANidine 4 MG TAB PO SCH (21:00)
[2022-06-05] MEDS ORDERED: LORATADINE 10 MG TAB PO SCH (21:00)
[2022-06-05 21:09] LABS: AMPHETAMINES LEVEL URINE NEGATIVE (NEGATIVE); BARBITURATES URINE NEGATIVE (NEGATIVE); BENZODIAZEPINES URINE NEGATIVE (NEGATIVE); CANNABINOIDS URINE NEGATIVE (NEGATIVE); COCAINE METABOLITE URINE NEGATIVE (NEGATIVE); METHADONE URINE NEGATIVE (NEGATIVE); OPIATES URINE NEGATIVE (NEGATIVE); PHENCYCLIDINE URINE NEGATIVE (NEGATIVE)
[2022-06-05] MEDS: OMEPRAZOLE 20MG CAP PO SCH (21:45)
[2022-06-05] MEDS: TOPIRAMATE (TopAMAX) 25 MG TAB PO SCH (21:46)
[2022-06-05] MEDS: metroNIDAZOLE (FLAGYL) 500MG TABLET PO SCH (21:48)
[2022-06-05] MEDS ORDERED: PROMETHAZINE 25MG/ML 1ML VIAL IV PRN (23:50)
[2022-06-06] MEDS: NS 1,000 ML IV SCH ×4 (00:45→20:33)
[2022-06-06] MEDS: LEVOTHYROXINE 25MCG TABLET (0.025MG) PO SCH (06:07)
[2022-06-06] MEDS: metroNIDAZOLE (FLAGYL) 500MG TABLET PO SCH ×3 (06:07→22:00)
[2022-06-06 07:11] LABS: HEMATOCRIT 36.4 % (36.0-47.0); HEMOGLOBIN 11.3 g/dl (12.0-15.5); MEAN CORPUSCULAR HEMOGLOBIN 26.3 pg (27.0-33.0); MEAN CORPUSCULAR VOLUME 84.7 fl (80.0-96.0); PLATELET COUNT, AUTOMATED 220 10^3/uL (150-450); WHITE BLOOD COUNT 9.6 10^3/uL (4.0-10.0)
[2022-06-06 07:34] LABS: MAGNESIUM LEVEL 1.9 MG/DL (1.8-2.4)
[2022-06-06 07:38] LABS: BLOOD UREA NITROGEN 6 MG/DL (9-23); CALCIUM LEVEL 8.2 MG/DL (8.5-10.1); CARBON DIOXIDE LEVEL 25 MMOL/L (20-31); CHLORIDE LEVEL 107 MMOL/L (98-107); CREATININE FOR GFR 0.71 MG/DL (0.55-1.30); GLOMERULAR FILTRATION RATE > 60.0 (>58); GLUCOSE, FASTING 99 MG/DL (60-100); POTASSIUM SERUM 3.8 MMOL/L (3.5-5.1); SODIUM LEVEL 138 MMOL/L (136-145)
[2022-06-06] MEDS: HYDROXYCHLOROQUINE 200 MG TAB PO SCH ×2 (09:00→20:39)
[2022-06-06] MEDS: ENOXAPARIN 40MG/0.4ML SYRINGE (J1650 PER 10MG) SC SCH (09:35)
[2022-06-06] MEDS: TOPIRAMATE (TopAMAX) 25 MG TAB PO SCH ×2 (09:36→20:39)
[2022-06-06] MEDS ORDERED: NS 1,000 ML IV ONE ×2 (10:50→15:00)
[2022-06-06] MEDS ORDERED: ISOVUE-370 76% 100ML VIAL As Ordered ONE (14:33)
[2022-06-06] MEDS ORDERED: PILL CUTTER 1 EACH XX PRN (15:45)
[2022-06-06] MEDS: THIAMINE INJection 500 MG in NS 100 ML IV SCH (17:00)
[2022-06-06] MEDS ORDERED: LIDOCAINE W/EPINEPHRINE 1% 20ML VIAL SC ONE (20:00)
[2022-06-06] MEDS: cefTRIAXone SOD 1 GM in D5W MINI-BAG PLUS 50 ML IV SCH (20:32)
[2022-06-06] MEDS: tiZANidine 4 MG TAB PO SCH (20:40)
[2022-06-06] MEDS: OMEPRAZOLE 20MG CAP PO SCH (20:40)
[2022-06-06] MEDS ORDERED: LURASIDONE 20 MG TAB (LATUDA) PO SCH (21:00)
[2022-06-06] MEDS ORDERED: LURASIDONE HCL 40MG TAB (LATUDA) PO SCH (21:00)
[2022-06-06] MEDS: traMADol 50 MG TAB PO PRN (22:56)
[2022-06-07] VITALS (12 sets, daily range): BP systolic 114–194; BP diastolic 55–101
[2022-06-07] MEDS: THIAMINE INJection 500 MG in NS 100 ML IV SCH (00:43)
[2022-06-07] MEDS: LEVOTHYROXINE 25MCG TABLET (0.025MG) PO SCH (05:14)
[2022-06-07] MEDS: metroNIDAZOLE (FLAGYL) 500MG TABLET PO SCH ×3 (05:14→21:33)
[2022-06-07 06:41] LABS: HEMATOCRIT 35.9 % (36.0-47.0); HEMOGLOBIN 11.4 g/dl (12.0-15.5); MEAN CORPUSCULAR HEMOGLOBIN 26.7 pg (27.0-33.0); MEAN CORPUSCULAR HGB CONC 31.8 g/dl (32.0-36.5); MEAN CORPUSCULAR VOLUME 84.1 fl (80.0-96.0); PLATELET COUNT, AUTOMATED 198 10^3/uL (150-450); RED BLOOD COUNT 4.27 10^6/uL (4.00-5.40); WHITE BLOOD COUNT 9.4 10^3/uL (4.0-10.0)
[2022-06-07] MEDS: NS 1,000 ML IV SCH (06:50)
[2022-06-07 06:58] LABS: MAGNESIUM LEVEL 1.8 MG/DL (1.8-2.4)
[2022-06-07 07:10] LABS: BLOOD UREA NITROGEN < 5 MG/DL (9-23); CALCIUM LEVEL 7.8 MG/DL (8.5-10.1); CARBON DIOXIDE LEVEL 20 MMOL/L (20-31); CHLORIDE LEVEL 111 MMOL/L (98-107); CREATININE FOR GFR 0.67 MG/DL (0.55-1.30); GLOMERULAR FILTRATION RATE > 60.0 (>58); GLUCOSE, FASTING 77 MG/DL (60-100); PHOSPHORUS LEVEL 3.4 MG/DL (2.5-4.9); POTASSIUM SERUM 3.7 MMOL/L (3.5-5.1); SODIUM LEVEL 142 MMOL/L (136-145)
[2022-06-07] MEDS: ENOXAPARIN 40MG/0.4ML SYRINGE (J1650 PER 10MG) SC SCH ×2 (09:00→09:53)
[2022-06-07] MEDS: TOPIRAMATE (TopAMAX) 25 MG TAB PO SCH ×2 (09:53→21:33)
[2022-06-07] MEDS ORDERED: MAGNESIUM OXIDE 400MG TAB (MAG-OX) PO ONE (11:30)
[2022-06-07] MEDS ORDERED: POTASSIUM CHLORIDE 10MEQ SR TABLET PO ONE (11:30)
[2022-06-07] MEDS: HYDROXYCHLOROQUINE 200 MG TAB PO SCH ×2 (13:37→21:34)
[2022-06-07] MEDS: traMADol 50 MG TAB PO PRN ×2 (13:49→23:43)
[2022-06-07] MEDS: NYSTATIN 100,000 UNITS/GM TOPICAL PWD 15GM TOP PRN ×2 (13:50→21:34)
[2022-06-07] MEDS ORDERED: amLODIPine 5 MG TAB PO ONE (17:15)
[2022-06-07] MEDS: cefTRIAXone SOD 1 GM in D5W MINI-BAG PLUS 50 ML IV SCH (18:22)
[2022-06-07] MEDS ORDERED: LURASIDONE 20 MG TAB (LATUDA) PO SCH ×2 (21:00)
[2022-06-07] MEDS: OMEPRAZOLE 20MG CAP PO SCH (21:34)
[2022-06-07] MEDS: tiZANidine 4 MG TAB PO SCH (21:34)
[2022-06-08] MEDS: metroNIDAZOLE (FLAGYL) 500MG TABLET PO SCH (05:53)
[2022-06-08] MEDS: LEVOTHYROXINE 25MCG TABLET (0.025MG) PO SCH (05:53)
[2022-06-08] MEDS ORDERED: HYDR100T33 PO (08:02)
[2022-06-08] MEDS ORDERED: TIZA1TAB12 PO (08:02)
[2022-06-08] MEDS ORDERED: BACT800T5 PO (08:02)
[2022-06-08] MEDS ORDERED: TOPA1TAB PO (08:04)
[2022-06-08] MEDS ORDERED: TOPA50TA8 PO (08:05)
[2022-06-08] MEDS ORDERED: TIZA10TA PO (08:06)
[2022-06-08 08:22] LABS: HEMATOCRIT 37.4 % (36.0-47.0); HEMOGLOBIN 11.8 g/dl (12.0-15.5); MEAN CORPUSCULAR HEMOGLOBIN 26.6 pg (27.0-33.0); MEAN CORPUSCULAR HGB CONC 31.6 g/dl (32.0-36.5); MEAN CORPUSCULAR VOLUME 84.2 fl (80.0-96.0); PLATELET COUNT, AUTOMATED 201 10^3/uL (150-450); RED BLOOD COUNT 4.44 10^6/uL (4.00-5.40); WHITE BLOOD COUNT 9.8 10^3/uL (4.0-10.0)
[2022-06-08 08:42] LABS: MAGNESIUM LEVEL 1.9 MG/DL (1.8-2.4)
[2022-06-08 08:45] LABS: BLOOD UREA NITROGEN 5 MG/DL (9-23); CALCIUM LEVEL 8.3 MG/DL (8.5-10.1); CARBON DIOXIDE LEVEL 23 MMOL/L (20-31); CHLORIDE LEVEL 109 MMOL/L (98-107); CREATININE FOR GFR 0.67 MG/DL (0.55-1.30); GLOMERULAR FILTRATION RATE > 60.0 (>58); GLUCOSE, FASTING 85 MG/DL (60-100); PHOSPHORUS LEVEL 3.3 MG/DL (2.5-4.9); SODIUM LEVEL 139 MMOL/L (136-145)
[2022-06-08] MEDS: HYDROXYCHLOROQUINE 200 MG TAB PO SCH (09:00)
[2022-06-08] MEDS ORDERED: amLODIPine 5 MG TAB PO SCH (09:00)
[2022-06-08] MEDS: ENOXAPARIN 40MG/0.4ML SYRINGE (J1650 PER 10MG) SC SCH ×2 (09:00→09:05)
[2022-06-08] MEDS: TOPIRAMATE (TopAMAX) 25 MG TAB PO SCH (09:04)
[2022-06-08 09:05] VITALS: BP 142/72
[2022-06-08] MEDS: traMADol 50 MG TAB PO PRN (10:28)
[2022-06-08] MEDS ORDERED: LATU20TA PO (10:42)
[2022-06-08] MEDS ORDERED: AMLO25TA PO (10:50)
[2022-06-08 11:04] VITALS: BP 153/72
== END 2022-06-08 11:06 | disposition home or self-care (01) | DRG 312 ==
LOC: M ED 15:49 → EDBD 15:49 → EEVIPCON 19:52 → M ED INP 19:52
PROVIDERS: ADMIT Internal Medicine; ATTEND Internal Medicine
PROC: 0J950ZZ Drainage of Left Neck Subcutaneous Tissue and Fascia, Open Approach (ICD-10-PCS; principal; 2022-06-06)
DX: R55 Syncope and collapse (principal); L02.11 Cutaneous abscess of neck; K52.1 Toxic gastroenteritis and colitis; F43.10 Post-traumatic stress disorder, unspecified; F41.9 Anxiety disorder, unspecified; F32.A Depression, unspecified; R53.1 Weakness; R11.2 Nausea with vomiting, unspecified; T36.1X5A Adverse effect of cephalosporins and other beta-lactam antibiotics, initial encounter; E03.9 Hypothyroidism, unspecified; K21.9 Gastro-esophageal reflux disease without esophagitis; G89.29 Other chronic pain; L93.0 Discoid lupus erythematosus; D64.9 Anemia, unspecified; R00.1 Bradycardia, unspecified; R94.31 Abnormal electrocardiogram [ECG] [EKG]; I95.1 Orthostatic hypotension; T42.8X5A Adverse effect of antiparkinsonism drugs and other central muscle-tone depressants, initial encounter; T37.8X5A Adverse effect of other specified systemic anti-infectives and antiparasitics, initial encounter; B95.62 Methicillin resistant Staphylococcus aureus infection as the cause of diseases classified elsewhere; Z79.890 Hormone replacement therapy; Z90.49 Acquired absence of other specified parts of digestive tract; Z98.84 Bariatric surgery status; Z79.899 Other long term (current) drug therapy; Z88.0 Allergy status to penicillin; Z88.5 Allergy status to narcotic agent; Z91.018 Allergy to other foods; Z91.013 Allergy to seafood

== ENCOUNTER 2022-06-30 04:18 | Inpatient (IN) | payer OTHER ==
[2022-06-30] VITALS (11 sets, daily range): BP systolic 133–182; BP diastolic 67–92; PULSE 95–103
[~2022-06-30] VITALS: Ht 167.6 cm; Wt 107.3 kg
[~2022-06-30 04:18] MED LIST changes: +ACET-683 PO; +AMLO25TA PO; +BACT800T5 PO; +HYDR100T33 PO; +LATU20TA PO; +TIZA1TAB12 PO; +TOPA1TAB PO; +TOPA50TA8 PO; +VITA1CAP4 PO; +VITA500T40 PO
[2022-06-30 04:54] LABS: BASO # 0.1 10^3/uL (0.0-0.2); EOS # 0.2 10^3/uL (0.0-0.5); EOS % 2.6 % (0.0-3.0); HEMATOCRIT 39.4 % (36.0-47.0); HEMOGLOBIN 12.2 g/dl (12.0-15.5); LYMPH # 2.4 10^3/uL (1.5-5.0); LYMPH % 39.7 % (24.0-44.0); MEAN CORPUSCULAR HEMOGLOBIN 26.1 pg (27.0-33.0); MEAN CORPUSCULAR VOLUME 84.2 fl (80.0-96.0); MONO # 0.3 10^3/uL (0.0-0.8); MONO % 5.4 % (2.0-8.0); NEUTROPHILS # 3.1 10^3/uL (1.5-8.5); PLATELET COUNT, AUTOMATED 237 10^3/uL (150-450); RED BLOOD COUNT 4.68 10^6/uL (4.00-5.40); WHITE BLOOD COUNT 6.1 10^3/uL (4.0-10.0)
[2022-06-30 05:18] LABS: ETHYL ALCOHOL (ETHANOL) 0.003 % (0.000-0.010); LIPASE 36 U/L (12-53); MAGNESIUM LEVEL 1.9 MG/DL (1.8-2.4)
[2022-06-30 05:20] LABS: ALBUMIN 3.1 G/DL (3.2-5.2); ALKALINE PHOSPHATASE 98 U/L (46-116); ALT/SGPT < 9 U/L (7.0-40); AST/SGOT 10 U/L (<34); BILIRUBIN,DIRECT < 0.1 MG/DL (<0.4); BILIRUBIN,TOTAL 0.3 MG/DL (0.3-1.2); BLOOD UREA NITROGEN 12 MG/DL (9-23); CALCIUM LEVEL 8.3 MG/DL (8.5-10.1); CARBON DIOXIDE LEVEL 21 MMOL/L (20-31); CHLORIDE LEVEL 109 MMOL/L (98-107); CK-MB VALUE MASS < 1.0 NG/ML (<3.6); CPK CREATINE PHOSPHOKINASE 47 U/L (34-145); CREATININE FOR GFR 0.73 MG/DL (0.55-1.30); GLOMERULAR FILTRATION RATE > 60.0 (>58); GLUCOSE, FASTING 114 MG/DL (60-100); MB/CK RELATIVE INDEX 2.12 (< OR =4); POTASSIUM SERUM 3.9 MMOL/L (3.5-5.1); SODIUM LEVEL 139 MMOL/L (136-145); TOTAL PROTEIN 6.3 G/DL (5.7-8.2)
[2022-06-30 05:22] LABS: THYROID STIMULATING HORMONE 2.614 uIU/ML (0.55-4.78)
[2022-06-30] MEDS ORDERED: NS 1,000 ML IV ONE ×2 (05:25→18:20)
[2022-06-30 05:28] LABS: HCG, SERUM QUALITATIVE NEGATIVE (NEGATIVE)
[2022-06-30 05:32] LABS: RSV AMPLIFICATION NEGATIVE (NEGATIVE)
[2022-06-30 06:14] LABS: CK-MB VALUE MASS < 1.0 NG/ML (<3.6); CPK CREATINE PHOSPHOKINASE 55 U/L (34-145); MB/CK RELATIVE INDEX 1.81 (< OR =4)
[2022-06-30] MEDS ORDERED: ISOVUE-370 76% 100ML VIAL As Ordered ONE (06:34)
[2022-06-30] MEDS ORDERED: TIZA1TAB12 PO (06:55)
[2022-06-30] MEDS ORDERED: HOME MED LIST COMPLETE! XX SCH (06:55)
[2022-06-30] MEDS ORDERED: VITMTA PO (06:55)
[2022-06-30] MEDS ORDERED: TOPA50TA8 PO (06:55)
[2022-06-30] MEDS ORDERED: AMLO2.5T3 PO (06:55)
[2022-06-30] MEDS ORDERED: PLAQ200T4 PO (06:55)
[2022-06-30] MEDS ORDERED: CLON1TAB8 PO (06:55)
[2022-06-30 08:56] LABS: INR 0.94; PROTHROMBIN TIME 12.8 SECONDS (12.5-14.5)
[2022-06-30 08:57] LABS: PARTIAL THROMBOPLASTIN TIME 28.1 SECONDS (24.8-34.2)
[2022-06-30] MEDS: MULTIVITAMINS/MINERALS THERAP 1 TAB PO SCH (09:00)
[2022-06-30 09:15] LABS: AMPHETAMINES LEVEL URINE NEGATIVE (NEGATIVE); BARBITURATES URINE NEGATIVE (NEGATIVE); BENZODIAZEPINES URINE NEGATIVE (NEGATIVE); CANNABINOIDS URINE NEGATIVE (NEGATIVE); COCAINE METABOLITE URINE NEGATIVE (NEGATIVE); METHADONE URINE NEGATIVE (NEGATIVE); OPIATES URINE NEGATIVE (NEGATIVE); PHENCYCLIDINE URINE NEGATIVE (NEGATIVE)
[2022-06-30] MEDS ORDERED: hydrALAZINE 20MG/ML 1ML VIAL IV STA (10:04)
[2022-06-30] MEDS: traMADol 50 MG TAB PO PRN ×2 (14:10→23:17)
[2022-06-30] MEDS ORDERED: METOPROLOL 5 MG/5 ML VIAL As Ordered ONE (15:28)
[2022-06-30] MEDS ORDERED: METOPROLOL 5 MG/5 ML VIAL IV STA ×2 (15:28→16:29)
[2022-06-30] MEDS: clonazePAM 1 MG TAB PO PRN (15:32)
[2022-06-30] MEDS: PERCOCET 5MG/325MG TAB PO PRN ×2 (15:33→21:16)
[2022-06-30 16:21] LABS: CK-MB VALUE MASS < 1.0 NG/ML (<3.6)
[2022-06-30 16:22] LABS: CPK CREATINE PHOSPHOKINASE 50 U/L (34-145)
[2022-06-30] MEDS: NYSTATIN 100,000 UNITS/GM TOPICAL PWD 15GM TOP SCH ×2 (16:31→21:19)
[2022-06-30] MEDS: HYDROXYCHLOROQUINE 200 MG TAB PO SCH (16:31)
[2022-06-30] MEDS: HEPARIN SOD (PORCINE) 5000UNITS/ML 1ML VIAL/SYRINGE SC SCH ×2 (16:32→23:15)
[2022-06-30] MEDS ORDERED: ASPIRIN 81MG CHEW TABLET PO ONE (17:40)
[2022-06-30] MEDS: OMEPRAZOLE 20MG CAP PO SCH (21:15)
[2022-06-30] MEDS: LORATADINE 10 MG TAB PO SCH (21:15)
[2022-06-30] MEDS: CYANOCOBALAMIN 500 MCG TAB PO SCH (21:15)
[2022-06-30] MEDS: TOPIRAMATE (TopAMAX) 25 MG TAB PO SCH (21:16)
[2022-06-30] MEDS: METOPROLOL TART 25 MG TABLET PO SCH (21:18)
[2022-06-30] MEDS: ATORVASTATIN 20 MG TAB PO SCH (23:14)
[2022-07-01] VITALS (9 sets, daily range): BP systolic 138–180; BP diastolic 65–80; PULSE 95
[2022-07-01] MEDS ORDERED: tiZANidine 4 MG TAB PO ONE (01:20)
[2022-07-01] MEDS ORDERED: PILL CUTTER 1 EACH XX PRN (01:30)
[2022-07-01] MEDS: PERCOCET 5MG/325MG TAB PO PRN ×2 (02:48→20:12)
[2022-07-01 05:20] LABS: BASO # 0.1 10^3/uL (0.0-0.2); EOS # 0.1 10^3/uL (0.0-0.5); EOS % 1.2 % (0.0-3.0); HEMATOCRIT 41.3 % (36.0-47.0); HEMOGLOBIN 12.7 g/dl (12.0-15.5); LYMPH # 2.3 10^3/uL (1.5-5.0); LYMPH % 33.7 % (24.0-44.0); MEAN CORPUSCULAR HEMOGLOBIN 26.1 pg (27.0-33.0); MEAN CORPUSCULAR HGB CONC 30.8 g/dl (32.0-36.5); MEAN CORPUSCULAR VOLUME 84.8 fl (80.0-96.0); MONO # 0.5 10^3/uL (0.0-0.8); NEUTROPHILS # 3.8 10^3/uL (1.5-8.5); NEUTROPHILS % 55.8 % (36.0-66.0); PLATELET COUNT, AUTOMATED 203 10^3/uL (150-450); RED BLOOD COUNT 4.87 10^6/uL (4.00-5.40); WHITE BLOOD COUNT 6.8 10^3/uL (4.0-10.0)
[2022-07-01 05:42] LABS: BLOOD UREA NITROGEN 9 MG/DL (9-23); CALCIUM LEVEL 8.8 MG/DL (8.5-10.1); CARBON DIOXIDE LEVEL 22 MMOL/L (20-31); CHLORIDE LEVEL 111 MMOL/L (98-107); CREATININE FOR GFR 0.76 MG/DL (0.55-1.30); GLOMERULAR FILTRATION RATE > 60.0 (>58); GLUCOSE, FASTING 87 MG/DL (60-100); POTASSIUM SERUM 3.9 MMOL/L (3.5-5.1); SODIUM LEVEL 142 MMOL/L (136-145)
[2022-07-01] MEDS: HEPARIN SOD (PORCINE) 5000UNITS/ML 1ML VIAL/SYRINGE SC SCH ×2 (06:52→14:56)
[2022-07-01] MEDS: LEVOTHYROXINE 25MCG TABLET (0.025MG) PO SCH (06:52)
[2022-07-01] MEDS: HYDROXYCHLOROQUINE 200 MG TAB PO SCH (08:24)
[2022-07-01] MEDS: MULTIVITAMINS/MINERALS THERAP 1 TAB PO SCH (08:25)
[2022-07-01] MEDS: ATORVASTATIN 20 MG TAB PO SCH (08:25)
[2022-07-01] MEDS: TOPIRAMATE (TopAMAX) 25 MG TAB PO SCH ×2 (08:25→20:12)
[2022-07-01] MEDS: ASPIRIN 81MG ENTERIC TABLET PO SCH (08:25)
[2022-07-01] MEDS: METOPROLOL TART 25 MG TABLET PO SCH ×2 (08:26→20:15)
[2022-07-01] MEDS: NYSTATIN 100,000 UNITS/GM TOPICAL PWD 15GM TOP SCH ×2 (08:27→20:15)
[2022-07-01] MEDS ORDERED: ASPIRIN 81MG ENTERIC TABLET PO SCH (09:00)
[2022-07-01] MEDS ORDERED: ATORVASTATIN 20 MG TAB PO SCH (09:00)
[2022-07-01] MEDS: traMADol 50 MG TAB PO PRN ×2 (10:47→23:54)
[2022-07-01] MEDS ORDERED: ONDANSETRON 4MG 2ML VIAL IV PRN (13:35)
[2022-07-01] MEDS: clonazePAM 1 MG TAB PO PRN (14:56)
[2022-07-01] MEDS: RAMELTEON 8 MG TAB (ROZEREM) PO SCH (20:11)
[2022-07-01] MEDS: OMEPRAZOLE 20MG CAP PO SCH (20:12)
[2022-07-01] MEDS: CYANOCOBALAMIN 500 MCG TAB PO SCH (20:12)
[2022-07-01] MEDS: LORATADINE 10 MG TAB PO SCH (20:12)
[2022-07-02] VITALS (11 sets, daily range): BP systolic 133–179; BP diastolic 70–108
[2022-07-02 04:52] LABS: BASO # 0.1 10^3/uL (0.0-0.2); BASO % 0.8 % (0.0-1.0); EOS # 0.2 10^3/uL (0.0-0.5); EOS % 2.5 % (0.0-3.0); HEMATOCRIT 43.7 % (36.0-47.0); HEMOGLOBIN 13.6 g/dl (12.0-15.5); LYMPH # 2.9 10^3/uL (1.5-5.0); LYMPH % 45.8 % (24.0-44.0); MEAN CORPUSCULAR HEMOGLOBIN 25.8 pg (27.0-33.0); MEAN CORPUSCULAR HGB CONC 31.1 g/dl (32.0-36.5); MEAN CORPUSCULAR VOLUME 82.8 fl (80.0-96.0); MONO # 0.6 10^3/uL (0.0-0.8); MONO % 8.6 % (2.0-8.0); NEUTROPHILS # 2.7 10^3/uL (1.5-8.5); PLATELET COUNT, AUTOMATED 247 10^3/uL (150-450); RED BLOOD COUNT 5.28 10^6/uL (4.00-5.40); WHITE BLOOD COUNT 6.4 10^3/uL (4.0-10.0)
[2022-07-02] MEDS: LEVOTHYROXINE 25MCG TABLET (0.025MG) PO SCH (05:02)
[2022-07-02 05:21] LABS: BLOOD UREA NITROGEN 7 MG/DL (9-23); CALCIUM LEVEL 9.2 MG/DL (8.5-10.1); CARBON DIOXIDE LEVEL 24 MMOL/L (20-31); CHLORIDE LEVEL 107 MMOL/L (98-107); CHOLESTEROL LEVEL 140 MG/DL (<200); CHOLESTEROL RISK RATIO 2.13 (<5); CREATININE FOR GFR 0.69 MG/DL (0.55-1.30); GLOMERULAR FILTRATION RATE > 60.0 (>58); GLUCOSE, FASTING 96 MG/DL (60-100); HDL CHOLESTEROL 65.5 MG/DL (>40); LDL CHOLESTEROL 60.1 MG/DL (<100); NON-HDL-C 75 MG/DL; POTASSIUM SERUM 3.7 MMOL/L (3.5-5.1); SODIUM LEVEL 141 MMOL/L (136-145); TRIGLYCERIDES LEVEL 72 MG/DL (<150)
[2022-07-02] MEDS ORDERED: KETOROLAC 30 MG/ML 1ML VIAL IV ONE (08:00)
[2022-07-02] MEDS: METOPROLOL TART 25 MG TABLET PO SCH ×2 (08:51→21:00)
[2022-07-02] MEDS: ATORVASTATIN 20 MG TAB PO SCH (09:00)
[2022-07-02] MEDS: HYDROXYCHLOROQUINE 200 MG TAB PO SCH (09:00)
[2022-07-02] MEDS: ASPIRIN 81MG ENTERIC TABLET PO SCH (09:00)
[2022-07-02] MEDS: amLODIPine 5 MG TAB PO SCH (09:00)
[2022-07-02] MEDS: TOPIRAMATE (TopAMAX) 25 MG TAB PO SCH ×2 (09:00→20:16)
[2022-07-02] MEDS: MULTIVITAMINS/MINERALS THERAP 1 TAB PO SCH (09:00)
[2022-07-02] MEDS: NYSTATIN 100,000 UNITS/GM TOPICAL PWD 15GM TOP SCH ×2 (09:03→20:17)
[2022-07-02] MEDS ORDERED: VANCOMYCIN HCL 750 MG, VIAL MATE ADAPTER 1 EACH in D5W 250 ML IV ONE ×6 (12:00)
[2022-07-02] MEDS ORDERED: VANCOMYCIN HCL 1,500 MG, VIAL MATE ADAPTER 1 EACH in NS 250 ML IV ONE (16:00)
[2022-07-02] MEDS ORDERED: LIDOCAINE 1% SDV 30ML VIAL As Ordered ONE (16:29)
[2022-07-02] MEDS ORDERED: propofoL 200 MG/20 ML VIAL As Ordered ONE (16:50)
[2022-07-02] MEDS ORDERED: fentaNYL 100 MCG/2 ML INJECTION As Ordered ONE (16:50)
[2022-07-02] MEDS ORDERED: MIDAZOLAM INJ 2MG/2ML VIAL As Ordered ONE (16:50)
[2022-07-02] MEDS ORDERED: ONDANSETRON 4MG 2ML VIAL IV PRN (17:25)
[2022-07-02] MEDS: traMADol 50 MG TAB PO PRN (20:15)
[2022-07-02] MEDS: RAMELTEON 8 MG TAB (ROZEREM) PO SCH (20:15)
[2022-07-02] MEDS: CYANOCOBALAMIN 500 MCG TAB PO SCH (20:15)
[2022-07-02] MEDS: OMEPRAZOLE 20MG CAP PO SCH (20:15)
[2022-07-02] MEDS: LORATADINE 10 MG TAB PO SCH (20:16)
[2022-07-02] MEDS: PERCOCET 5MG/325MG TAB PO PRN (21:04)
[2022-07-02] MEDS: clonazePAM 1 MG TAB PO PRN (21:04)
[2022-07-03] MEDS: PERCOCET 5MG/325MG TAB PO PRN (02:44)
[2022-07-03 03:54] VITALS: BP 132/63
[2022-07-03 05:33] LABS: BASO # 0.1 10^3/uL (0.0-0.2); BASO % 0.8 % (0.0-1.0); EOS # 0.1 10^3/uL (0.0-0.5); EOS % 2.4 % (0.0-3.0); HEMATOCRIT 40.8 % (36.0-47.0); HEMOGLOBIN 12.8 g/dl (12.0-15.5); LYMPH # 2.4 10^3/uL (1.5-5.0); LYMPH % 40.7 % (24.0-44.0); MEAN CORPUSCULAR HGB CONC 31.4 g/dl (32.0-36.5); MEAN CORPUSCULAR VOLUME 82.8 fl (80.0-96.0); MONO # 0.4 10^3/uL (0.0-0.8); MONO % 7.5 % (2.0-8.0); NEUTROPHILS # 2.9 10^3/uL (1.5-8.5); NEUTROPHILS % 48.4 % (36.0-66.0); PLATELET COUNT, AUTOMATED 223 10^3/uL (150-450); RED BLOOD COUNT 4.93 10^6/uL (4.00-5.40); WHITE BLOOD COUNT 5.9 10^3/uL (4.0-10.0)
[2022-07-03] MEDS: LEVOTHYROXINE 25MCG TABLET (0.025MG) PO SCH (05:54)
[2022-07-03 06:00] LABS: BLOOD UREA NITROGEN 14 MG/DL (9-23); CALCIUM LEVEL 8.7 MG/DL (8.5-10.1); CARBON DIOXIDE LEVEL 23 MMOL/L (20-31); CHLORIDE LEVEL 109 MMOL/L (98-107); CREATININE FOR GFR 0.72 MG/DL (0.55-1.30); GLOMERULAR FILTRATION RATE > 60.0 (>58); GLUCOSE, FASTING 95 MG/DL (60-100); POTASSIUM SERUM 3.9 MMOL/L (3.5-5.1); SODIUM LEVEL 141 MMOL/L (136-145)
[2022-07-03 08:00] VITALS: BP 138/88
[2022-07-03] MEDS: HYDROXYCHLOROQUINE 200 MG TAB PO SCH (08:32)
[2022-07-03] MEDS: MULTIVITAMINS/MINERALS THERAP 1 TAB PO SCH (08:32)
[2022-07-03] MEDS: TOPIRAMATE (TopAMAX) 25 MG TAB PO SCH (08:32)
[2022-07-03] MEDS: ASPIRIN 81MG ENTERIC TABLET PO SCH (08:32)
[2022-07-03 08:33] VITALS: BP 132/63
[2022-07-03] MEDS: amLODIPine 5 MG TAB PO SCH (08:33)
[2022-07-03] MEDS: METOPROLOL TART 25 MG TABLET PO SCH (08:33)
[2022-07-03] MEDS: NYSTATIN 100,000 UNITS/GM TOPICAL PWD 15GM TOP SCH (08:33)
[2022-07-03] MEDS: ATORVASTATIN 20 MG TAB PO SCH (08:33)
[2022-07-03] MEDS ORDERED: ASPI81TAEC PO (11:15)
[2022-07-03] MEDS ORDERED: AMLO1TAB24 PO (11:15)
[2022-07-03] MEDS ORDERED: ATOR1TAB21 PO (11:15)
[2022-07-03] MEDS ORDERED: METO37.5 PO (11:15)
== END 2022-07-03 12:49 | disposition home or self-care (01) | DRG 261 ==
LOC: M ED 04:18 → M ED INP 10:04 → ENRESERV 12:33 → M PCU 13:55
PROVIDERS: ADMIT Internal Medicine; ATTEND Internal Medicine
PROC: B246ZZZ Ultrasonography of Right and Left Heart (ICD-10-PCS; 2022-06-30)
PROC: 0JH602Z Insertion of Monitoring Device into Chest Subcutaneous Tissue and Fascia, Open Approach (ICD-10-PCS; principal; 2022-07-02 16:03)
DX: R00.1 Bradycardia, unspecified (principal); I24.8 Other forms of acute ischemic heart disease; R07.89 Other chest pain; I49.5 Sick sinus syndrome; R53.1 Weakness; I10 Essential (primary) hypertension; E03.9 Hypothyroidism, unspecified; L30.4 Erythema intertrigo; K21.9 Gastro-esophageal reflux disease without esophagitis; M32.9 Systemic lupus erythematosus, unspecified; F39 Unspecified mood [affective] disorder; G89.29 Other chronic pain; F43.10 Post-traumatic stress disorder, unspecified; F41.0 Panic disorder [episodic paroxysmal anxiety]; I44.0 Atrioventricular block, first degree; B36.9 Superficial mycosis, unspecified; Z98.84 Bariatric surgery status; Z90.49 Acquired absence of other specified parts of digestive tract; Z79.890 Hormone replacement therapy; Z87.891 Personal history of nicotine dependence; Z79.899 Other long term (current) drug therapy; Z88.0 Allergy status to penicillin; Z88.5 Allergy status to narcotic agent; Z91.013 Allergy to seafood; Z91.018 Allergy to other foods

== ENCOUNTER 2022-07-21 08:39 | Inpatient (IN) | payer OTHER ==
[~2022-07-21] VITALS: Ht 167.6 cm; Wt 113.5 kg
[~2022-07-21 08:39] MED LIST changes: +AMLO1TAB24 PO; +AMLO2.5T3 PO; +ASPI81TAEC PO; +ATOR1TAB21 PO; +METO37.5 PO; +PLAQ200T4 PO
[2022-07-21] MEDS ORDERED: NS 1,000 ML IV ONE (09:05)
[2022-07-21 09:28] LABS: BASO % 0.8 % (0.0-1.0); EOS # 0.1 10^3/uL (0.0-0.5); EOS % 3.5 % (0.0-3.0); HEMATOCRIT 37.9 % (36.0-47.0); HEMOGLOBIN 11.8 g/dl (12.0-15.5); LYMPH % 51.1 % (24.0-44.0); MEAN CORPUSCULAR HEMOGLOBIN 26.4 pg (27.0-33.0); MEAN CORPUSCULAR HGB CONC 31.1 g/dl (32.0-36.5); MEAN CORPUSCULAR VOLUME 84.8 fl (80.0-96.0); MONO # 0.2 10^3/uL (0.0-0.8); MONO % 5.5 % (2.0-8.0); NEUTROPHILS # 1.6 10^3/uL (1.5-8.5); NEUTROPHILS % 39.1 % (36.0-66.0); PLATELET COUNT, AUTOMATED 196 10^3/uL (150-450); RED BLOOD COUNT 4.47 10^6/uL (4.00-5.40)
[2022-07-21 09:34] LABS: ERYTHROCYTE SEDIMENTATION RATE 25 mm/hr (0-20)
[2022-07-21 09:51] LABS: INR 0.96
[2022-07-21 09:52] LABS: CK-MB VALUE MASS < 1.0 NG/ML (<3.6)
[2022-07-21 09:52] LABS: PARTIAL THROMBOPLASTIN TIME 27.8 SECONDS (24.8-34.2)
[2022-07-21 09:55] LABS: ALBUMIN 3.3 G/DL (3.2-5.2); ALKALINE PHOSPHATASE 164 U/L (46-116); ALT/SGPT 145 U/L (7.0-40); AST/SGOT 186 U/L (<34); BILIRUBIN,DIRECT 0.2 MG/DL (<0.4); BILIRUBIN,TOTAL 0.5 MG/DL (0.3-1.2); BLOOD UREA NITROGEN 9 MG/DL (9-23); C REACTIVE PROTEIN QUANTITATIV < 0.40 MG/DL (<1.0); CALCIUM LEVEL 8.5 MG/DL (8.5-10.1); CARBON DIOXIDE LEVEL 26 MMOL/L (20-31); CHLORIDE LEVEL 106 MMOL/L (98-107); CREATININE FOR GFR 0.83 MG/DL (0.55-1.30); GLOMERULAR FILTRATION RATE > 60.0 (>58); GLUCOSE, FASTING 142 MG/DL (60-100); MAGNESIUM LEVEL 1.8 MG/DL (1.8-2.4); POTASSIUM SERUM 4.8 MMOL/L (3.5-5.1); SODIUM LEVEL 137 MMOL/L (136-145); TOTAL PROTEIN 6.2 G/DL (5.7-8.2)
[2022-07-21 09:56] LABS: THYROID STIMULATING HORMONE 5.561 uIU/ML (0.55-4.78)
[2022-07-21 10:02] LABS: CPK CREATINE PHOSPHOKINASE 46 U/L (34-145); MB/CK RELATIVE INDEX 2.17 (< OR =4)
[2022-07-21 10:05] LABS: CK-MB VALUE MASS < 1.0 NG/ML (<3.6)
[2022-07-21 10:09] LABS: CPK CREATINE PHOSPHOKINASE 36 U/L (34-145); MB/CK RELATIVE INDEX 2.77 (< OR =4)
[2022-07-21 11:05] LABS: RSV AMPLIFICATION NEGATIVE (NEGATIVE)
[2022-07-21] MEDS ORDERED: GI COCKTAIL 50ML BTL(HYOSCYAMINE/MAALOX/LIDOCAINE VISCOUS)(1:3:1) PO ONE (12:50)
[2022-07-21] MEDS ORDERED: METO37.5 PO (14:06)
[2022-07-21] MEDS ORDERED: AMLO1TAB24 PO (14:06)
[2022-07-21] MEDS ORDERED: QUET100T2 PO (14:06)
[2022-07-21] MEDS ORDERED: LATU1TAB PO (14:06)
[2022-07-21] MEDS ORDERED: ASPI81TA26 PO (14:06)
[2022-07-21] MEDS ORDERED: ATOR80TA59 PO (14:06)
[2022-07-21] MEDS ORDERED: HOME MED LIST COMPLETE! XX SCH (14:10)
[2022-07-21] MEDS ORDERED: TOPIRAMATE (TopAMAX) 25 MG TAB PO PRN (14:25)
[2022-07-21] MEDS ORDERED: clonazePAM 1 MG TAB PO PRN (14:25)
[2022-07-21] MEDS ORDERED: traMADol 50 MG TAB PO PRN (14:25)
[2022-07-21] MEDS ORDERED: PILL CUTTER 1 EACH XX PRN (14:35)
[2022-07-21 16:15] VITALS: BP 131/62
[2022-07-21] MEDS: NS 1,000 ML IV SCH (17:12)
[2022-07-21 20:21] VITALS: BP 96/53
[2022-07-21] MEDS: QUEtiapine FUMARATE 100 MG TAB PO SCH (21:00)
[2022-07-21] MEDS: tiZANidine 4 MG TAB PO SCH (21:13)
[2022-07-21] MEDS: HYDROXYCHLOROQUINE 200 MG TAB PO SCH (21:13)
[2022-07-21] MEDS: OMEPRAZOLE 20MG CAP PO SCH (21:13)
[2022-07-21] MEDS: ASPIRIN 81MG ENTERIC TABLET PO SCH (21:13)
[2022-07-21] MEDS: LURASIDONE 20 MG TAB (LATUDA) PO SCH (21:13)
[2022-07-22] VITALS (8 sets, daily range): BP systolic 101–140; BP diastolic 57–93
[2022-07-22] MEDS: NS 1,000 ML IV SCH ×3 (02:44→21:03)
[2022-07-22] MEDS: LEVOTHYROXINE 25MCG TABLET (0.025MG) PO SCH (05:51)
[2022-07-22 05:54] LABS: HEMOGLOBIN 10.8 g/dl (12.0-15.5); MEAN CORPUSCULAR HGB CONC 30.9 g/dl (32.0-36.5); MEAN CORPUSCULAR VOLUME 84.1 fl (80.0-96.0); PLATELET COUNT, AUTOMATED 174 10^3/uL (150-450); RED BLOOD COUNT 4.16 10^6/uL (4.00-5.40); WHITE BLOOD COUNT 4.2 10^3/uL (4.0-10.0)
[2022-07-22 06:47] LABS: ALBUMIN 2.8 G/DL (3.2-5.2); ALKALINE PHOSPHATASE 135 U/L (46-116); ALT/SGPT 92 U/L (7.0-40); AST/SGOT 65 U/L (<34); BILIRUBIN,TOTAL 0.4 MG/DL (0.3-1.2); BLOOD UREA NITROGEN 8 MG/DL (9-23); CALCIUM LEVEL 8.5 MG/DL (8.5-10.1); CARBON DIOXIDE LEVEL 25 MMOL/L (20-31); CHLORIDE LEVEL 108 MMOL/L (98-107); CREATININE FOR GFR 0.76 MG/DL (0.55-1.30); GLOMERULAR FILTRATION RATE > 60.0 (>58); GLUCOSE, FASTING 105 MG/DL (60-100); POTASSIUM SERUM 4.4 MMOL/L (3.5-5.1); SODIUM LEVEL 140 MMOL/L (136-145); TOTAL PROTEIN 5.5 G/DL (5.7-8.2)
[2022-07-22] MEDS: ONDANSETRON 4MG 2ML VIAL IV PRN (10:16)
[2022-07-22] MEDS: ATORVASTATIN 20 MG TAB PO SCH (10:17)
[2022-07-22] MEDS: ENOXAPARIN 40MG/0.4ML SYRINGE (J1650 PER 10MG) SC SCH (10:17)
[2022-07-22] MEDS: HYDROXYCHLOROQUINE 200 MG TAB PO SCH ×2 (10:18→21:02)
[2022-07-22] MEDS: traMADol 50 MG TAB PO SCH ×2 (10:43→21:03)
[2022-07-22] MEDS: OMEPRAZOLE 20MG CAP PO SCH (21:02)
[2022-07-22] MEDS: LURASIDONE 20 MG TAB (LATUDA) PO SCH (21:02)
[2022-07-22] MEDS: tiZANidine 4 MG TAB PO SCH (21:02)
[2022-07-22] MEDS: QUEtiapine FUMARATE 100 MG TAB PO SCH (21:02)
[2022-07-22] MEDS: ASPIRIN 81MG ENTERIC TABLET PO SCH (21:02)
[2022-07-23] VITALS (9 sets, daily range): BP systolic 118–164; BP diastolic 56–74
[2022-07-23 05:23] LABS: HEMATOCRIT 36.8 % (36.0-47.0); HEMOGLOBIN 11.4 g/dl (12.0-15.5); MEAN CORPUSCULAR HEMOGLOBIN 26.1 pg (27.0-33.0); MEAN CORPUSCULAR VOLUME 84.4 fl (80.0-96.0); PLATELET COUNT, AUTOMATED 175 10^3/uL (150-450); RED BLOOD COUNT 4.36 10^6/uL (4.00-5.40); WHITE BLOOD COUNT 4.6 10^3/uL (4.0-10.0)
[2022-07-23 05:51] LABS: ALBUMIN 2.9 G/DL (3.2-5.2); ALKALINE PHOSPHATASE 120 U/L (46-116); ALT/SGPT 61 U/L (7.0-40); AST/SGOT 27 U/L (<34); BILIRUBIN,TOTAL 0.4 MG/DL (0.3-1.2); BLOOD UREA NITROGEN 8 MG/DL (9-23); CALCIUM LEVEL 8.4 MG/DL (8.5-10.1); CARBON DIOXIDE LEVEL 24 MMOL/L (20-31); CHLORIDE LEVEL 108 MMOL/L (98-107); CREATININE FOR GFR 0.74 MG/DL (0.55-1.30); GLOMERULAR FILTRATION RATE > 60.0 (>58); GLUCOSE, FASTING 118 MG/DL (60-100); POTASSIUM SERUM 4.1 MMOL/L (3.5-5.1); SODIUM LEVEL 140 MMOL/L (136-145); TOTAL PROTEIN 5.6 G/DL (5.7-8.2)
[2022-07-23] MEDS: LEVOTHYROXINE 25MCG TABLET (0.025MG) PO SCH (06:11)
[2022-07-23] MEDS: ATORVASTATIN 20 MG TAB PO SCH (08:01)
[2022-07-23] MEDS: traMADol 50 MG TAB PO SCH ×2 (08:01→21:53)
[2022-07-23] MEDS: NS 1,000 ML IV SCH ×3 (08:02→17:18)
[2022-07-23] MEDS: HYDROXYCHLOROQUINE 200 MG TAB PO SCH ×2 (08:02→21:52)
[2022-07-23] MEDS: ENOXAPARIN 40MG/0.4ML SYRINGE (J1650 PER 10MG) SC SCH (08:02)
[2022-07-23] MEDS: QUEtiapine FUMARATE 100 MG TAB PO SCH (21:52)
[2022-07-23] MEDS: ASPIRIN 81MG ENTERIC TABLET PO SCH (21:52)
[2022-07-23] MEDS: LURASIDONE 20 MG TAB (LATUDA) PO SCH (21:52)
[2022-07-23] MEDS: tiZANidine 4 MG TAB PO SCH (21:52)
[2022-07-23] MEDS: OMEPRAZOLE 20MG CAP PO SCH (21:52)
[2022-07-23] MEDS: ONDANSETRON 4MG 2ML VIAL IV PRN (23:49)
[2022-07-24] VITALS (7 sets, daily range): BP systolic 93–142; BP diastolic 57–75
[2022-07-24] MEDS ORDERED: MECLIZINE 12.5 MG TAB PO ONE (02:00)
[2022-07-24 05:27] LABS: HEMATOCRIT 35.4 % (36.0-47.0); HEMOGLOBIN 11.3 g/dl (12.0-15.5); MEAN CORPUSCULAR HEMOGLOBIN 26.7 pg (27.0-33.0); MEAN CORPUSCULAR HGB CONC 31.9 g/dl (32.0-36.5); MEAN CORPUSCULAR VOLUME 83.5 fl (80.0-96.0); PLATELET COUNT, AUTOMATED 173 10^3/uL (150-450); RED BLOOD COUNT 4.24 10^6/uL (4.00-5.40); WHITE BLOOD COUNT 5.8 10^3/uL (4.0-10.0)
[2022-07-24 05:47] LABS: ALBUMIN 2.7 G/DL (3.2-5.2); ALKALINE PHOSPHATASE 108 U/L (46-116); ALT/SGPT 44 U/L (7.0-40); AST/SGOT 16 U/L (<34); BILIRUBIN,TOTAL 0.3 MG/DL (0.3-1.2); BLOOD UREA NITROGEN 6 MG/DL (9-23); CALCIUM LEVEL 8.2 MG/DL (8.5-10.1); CARBON DIOXIDE LEVEL 24 MMOL/L (20-31); CHLORIDE LEVEL 107 MMOL/L (98-107); CREATININE FOR GFR 0.67 MG/DL (0.55-1.30); GLOMERULAR FILTRATION RATE > 60.0 (>58); GLUCOSE, FASTING 120 MG/DL (60-100); POTASSIUM SERUM 3.8 MMOL/L (3.5-5.1); SODIUM LEVEL 139 MMOL/L (136-145); TOTAL PROTEIN 5.4 G/DL (5.7-8.2)
[2022-07-24] MEDS: NS 1,000 ML IV SCH ×3 (06:19→21:00)
[2022-07-24] MEDS: LEVOTHYROXINE 25MCG TABLET (0.025MG) PO SCH (06:19)
[2022-07-24] MEDS: ENOXAPARIN 40MG/0.4ML SYRINGE (J1650 PER 10MG) SC SCH (08:46)
[2022-07-24] MEDS: ATORVASTATIN 20 MG TAB PO SCH (08:47)
[2022-07-24] MEDS: traMADol 50 MG TAB PO SCH ×2 (08:47→20:52)
[2022-07-24] MEDS: HYDROXYCHLOROQUINE 200 MG TAB PO SCH ×2 (08:48→20:52)
[2022-07-24] MEDS ORDERED: MECLIZINE 12.5 MG TAB PO PRN (09:40)
[2022-07-24] MEDS: ONDANSETRON 4MG 2ML VIAL IV PRN (12:10)
[2022-07-24] MEDS: ACETAMINOPHEN TAB 650MG DOSE (2X325MG) PO PRN (18:25)
[2022-07-24] MEDS: LURASIDONE 20 MG TAB (LATUDA) PO SCH (20:52)
[2022-07-24] MEDS: OMEPRAZOLE 20MG CAP PO SCH (20:52)
[2022-07-24] MEDS: RAMELTEON 8 MG TAB (ROZEREM) PO SCH (20:52)
[2022-07-25] VITALS (8 sets, daily range): BP systolic 132–168; BP diastolic 63–84
[2022-07-25] MEDS: LEVOTHYROXINE 25MCG TABLET (0.025MG) PO SCH (05:05)
[2022-07-25 06:01] LABS: HEMATOCRIT 36.6 % (36.0-47.0); HEMOGLOBIN 11.4 g/dl (12.0-15.5); MEAN CORPUSCULAR HEMOGLOBIN 26.1 pg (27.0-33.0); MEAN CORPUSCULAR HGB CONC 31.1 g/dl (32.0-36.5); MEAN CORPUSCULAR VOLUME 83.8 fl (80.0-96.0); PLATELET COUNT, AUTOMATED 157 10^3/uL (150-450); RED BLOOD COUNT 4.37 10^6/uL (4.00-5.40); WHITE BLOOD COUNT 4.5 10^3/uL (4.0-10.0)
[2022-07-25] MEDS: NS 1,000 ML IV SCH ×2 (06:03→12:39)
[2022-07-25 06:07] LABS: ALBUMIN 2.9 G/DL (3.2-5.2); ALKALINE PHOSPHATASE 102 U/L (46-116); ALT/SGPT 36 U/L (7.0-40); AST/SGOT < 8 U/L (<34); BILIRUBIN,TOTAL 0.4 MG/DL (0.3-1.2); BLOOD UREA NITROGEN 6 MG/DL (9-23); CARBON DIOXIDE LEVEL 24 MMOL/L (20-31); CHLORIDE LEVEL 112 MMOL/L (98-107); CREATININE FOR GFR 0.74 MG/DL (0.55-1.30); GLOMERULAR FILTRATION RATE > 60.0 (>58); GLUCOSE, FASTING 74 MG/DL (60-100); POTASSIUM SERUM 3.7 MMOL/L (3.5-5.1); SODIUM LEVEL 142 MMOL/L (136-145); TOTAL PROTEIN 5.6 G/DL (5.7-8.2)
[2022-07-25] MEDS ORDERED: VANCOMYCIN HCL 1,500 MG, VIAL MATE ADAPTER 1 EACH in NS 250 ML IV ONE (07:00)
[2022-07-25] MEDS ORDERED: ISOVUE-300 61% 100ML VIAL As Ordered ONE (07:47)
[2022-07-25] MEDS ORDERED: LIDOCAINE 1% SDV 30ML VIAL As Ordered ONE (07:47)
[2022-07-25] MEDS ORDERED: VANCOMYCIN HCL 750 MG, VIAL MATE ADAPTER 1 EACH in D5W 250 ML IV ONE ×2 (08:00→09:00)
[2022-07-25] MEDS ORDERED: MIDAZOLAM INJ 2MG/2ML VIAL As Ordered ONE (09:10)
[2022-07-25] MEDS ORDERED: propofoL 200 MG/20 ML VIAL As Ordered ONE ×4 (09:10→10:30)
[2022-07-25] MEDS ORDERED: ACETAMINOPHEN 1000MG 100ML IV BAG As Ordered ONE (09:10)
[2022-07-25] MEDS ORDERED: LIDOCAINE 2% 100MG/5ML SDV (FOR ANES.) As Ordered ONE (09:10)
[2022-07-25] MEDS ORDERED: ONDANSETRON 4MG 2ML VIAL As Ordered ONE (09:10)
[2022-07-25] MEDS ORDERED: fentaNYL 100 MCG/2 ML INJECTION As Ordered ONE (09:10)
[2022-07-25] MEDS ORDERED: ESMOLOL INJ 100MG/10ML VIAL As Ordered ONE (09:52)
[2022-07-25] MEDS ORDERED: ONDANSETRON 4MG 2ML VIAL IV PRN (10:30)
[2022-07-25] MEDS ORDERED: oxyCODONE 5MG TAB PO PRN (10:30)
[2022-07-25] MEDS: fentaNYL 100 MCG/2 ML INJECTION IV PRN ×4 (11:05→11:20)
[2022-07-25] MEDS: traMADol 50 MG TAB PO SCH (12:09)
[2022-07-25] MEDS: ATORVASTATIN 20 MG TAB PO SCH (12:09)
[2022-07-25] MEDS: HYDROXYCHLOROQUINE 200 MG TAB PO SCH ×2 (12:09→20:53)
[2022-07-25] MEDS: ONDANSETRON 4MG 2ML VIAL IV PRN ×2 (14:33→19:49)
[2022-07-25] MEDS: ACETAMINOPHEN TAB 650MG DOSE (2X325MG) PO PRN (15:21)
[2022-07-25] MEDS: traMADol 50 MG TAB PO PRN ×2 (18:06→22:41)
[2022-07-25] MEDS: RAMELTEON 8 MG TAB (ROZEREM) PO SCH (20:52)
[2022-07-25] MEDS: OMEPRAZOLE 20MG CAP PO SCH (20:53)
[2022-07-25] MEDS: LURASIDONE 20 MG TAB (LATUDA) PO SCH (20:53)
[2022-07-25] MEDS: ASCORBIC ACID 250 MG TAB PO SCH (20:53)
[2022-07-26] VITALS (8 sets, daily range): BP systolic 135–180; BP diastolic 66–112
[2022-07-26] MEDS: PERCOCET 5MG/325MG TAB PO PRN ×4 (00:43→22:34)
[2022-07-26] MEDS: ONDANSETRON 4MG 2ML VIAL IV PRN ×2 (04:09→22:35)
[2022-07-26 05:07] LABS: HEMATOCRIT 36.1 % (36.0-47.0); HEMOGLOBIN 11.2 g/dl (12.0-15.5); MEAN CORPUSCULAR HEMOGLOBIN 26.2 pg (27.0-33.0); MEAN CORPUSCULAR VOLUME 84.5 fl (80.0-96.0); PLATELET COUNT, AUTOMATED 145 10^3/uL (150-450); RED BLOOD COUNT 4.27 10^6/uL (4.00-5.40); WHITE BLOOD COUNT 5.9 10^3/uL (4.0-10.0)
[2022-07-26 05:40] LABS: ALBUMIN 2.9 G/DL (3.2-5.2); ALKALINE PHOSPHATASE 102 U/L (46-116); ALT/SGPT 28 U/L (7.0-40); AST/SGOT 16 U/L (<34); BILIRUBIN,TOTAL 0.5 MG/DL (0.3-1.2); BLOOD UREA NITROGEN 6 MG/DL (9-23); CALCIUM LEVEL 7.9 MG/DL (8.5-10.1); CARBON DIOXIDE LEVEL 24 MMOL/L (20-31); CHLORIDE LEVEL 109 MMOL/L (98-107); CREATININE FOR GFR 0.67 MG/DL (0.55-1.30); GLOMERULAR FILTRATION RATE > 60.0 (>58); GLUCOSE, FASTING 109 MG/DL (60-100); POTASSIUM SERUM 3.9 MMOL/L (3.5-5.1); SODIUM LEVEL 141 MMOL/L (136-145); TOTAL PROTEIN 5.6 G/DL (5.7-8.2)
[2022-07-26] MEDS: LEVOTHYROXINE 25MCG TABLET (0.025MG) PO SCH (05:48)
[2022-07-26] MEDS: ATORVASTATIN 20 MG TAB PO SCH (08:06)
[2022-07-26] MEDS: HYDROXYCHLOROQUINE 200 MG TAB PO SCH ×2 (08:06→20:01)
[2022-07-26] MEDS: traMADol 50 MG TAB PO PRN ×2 (08:07→21:33)
[2022-07-26] MEDS: ASCORBIC ACID 250 MG TAB PO SCH ×2 (08:07→20:01)
[2022-07-26] MEDS: OMEPRAZOLE 20MG CAP PO SCH (20:01)
[2022-07-26] MEDS: RAMELTEON 8 MG TAB (ROZEREM) PO SCH (20:01)
[2022-07-26] MEDS: LURASIDONE 20 MG TAB (LATUDA) PO SCH (20:01)
[2022-07-26] MEDS ORDERED: ENOXAPARIN 40MG/0.4ML SYRINGE (J1650 PER 10MG) SC SCH (21:00)
[2022-07-27 00:17] VITALS: BP 130/73
[2022-07-27] MEDS: METOPROLOL TART 25 MG TABLET PO SCH ×2 (00:19→08:35)
[2022-07-27 04:30] VITALS: BP 131/72
[2022-07-27 05:31] LABS: HEMATOCRIT 37.9 % (36.0-47.0); HEMOGLOBIN 11.5 g/dl (12.0-15.5); MEAN CORPUSCULAR HEMOGLOBIN 25.8 pg (27.0-33.0); MEAN CORPUSCULAR HGB CONC 30.3 g/dl (32.0-36.5); MEAN CORPUSCULAR VOLUME 85.2 fl (80.0-96.0); PLATELET COUNT, AUTOMATED 138 10^3/uL (150-450); RED BLOOD COUNT 4.45 10^6/uL (4.00-5.40); WHITE BLOOD COUNT 6.2 10^3/uL (4.0-10.0)
[2022-07-27] MEDS: LEVOTHYROXINE 25MCG TABLET (0.025MG) PO SCH (06:12)
[2022-07-27] MEDS: PERCOCET 5MG/325MG TAB PO PRN (06:14)
[2022-07-27 06:50] LABS: ALBUMIN 2.8 G/DL (3.2-5.2); ALKALINE PHOSPHATASE 101 U/L (46-116); ALT/SGPT 21 U/L (7.0-40); AST/SGOT < 8 U/L (<34); BILIRUBIN,TOTAL 0.3 MG/DL (0.3-1.2); BLOOD UREA NITROGEN 7 MG/DL (9-23); CALCIUM LEVEL 8.5 MG/DL (8.5-10.1); CARBON DIOXIDE LEVEL 27 MMOL/L (20-31); CHLORIDE LEVEL 108 MMOL/L (98-107); CREATININE FOR GFR 0.71 MG/DL (0.55-1.30); GLOMERULAR FILTRATION RATE > 60.0 (>58); GLUCOSE, FASTING 90 MG/DL (60-100); SODIUM LEVEL 140 MMOL/L (136-145); TOTAL PROTEIN 5.6 G/DL (5.7-8.2)
[2022-07-27 08:06] VITALS: BP 148/71
[2022-07-27 08:08] VITALS: BP_SYST 148; BP_SYST 150; BP_SYST 162; BP_DIAS 71; BP_DIAS 84; BP_DIAS 94
[2022-07-27] MEDS: ATORVASTATIN 20 MG TAB PO SCH (08:34)
[2022-07-27 08:35] VITALS: BP 150/84
[2022-07-27] MEDS: HYDROXYCHLOROQUINE 200 MG TAB PO SCH (08:35)
[2022-07-27] MEDS: ASCORBIC ACID 250 MG TAB PO SCH (08:35)
[2022-07-27] MEDS: traMADol 50 MG TAB PO PRN (11:07)
[2022-07-27 12:16] VITALS: BP_SYST 138; BP_SYST 142; BP_SYST 150; BP_DIAS 50; BP_DIAS 66; BP_DIAS 70
== END 2022-07-27 13:50 | disposition home or self-care (01) | DRG 244 ==
LOC: M ED 09:40 → M ED INP 14:21 → ENRESERV 15:06 → M PCU 15:40
PROVIDERS: ADMIT Internal Medicine; ATTEND Family Medicine
PROC: 02H63JZ Insertion of Pacemaker Lead into Right Atrium, Percutaneous Approach (ICD-10-PCS; 2022-07-25)
PROC: 02HK3JZ Insertion of Pacemaker Lead into Right Ventricle, Percutaneous Approach (ICD-10-PCS; 2022-07-25)
PROC: 0JH606Z Insertion of Pacemaker, Dual Chamber into Chest Subcutaneous Tissue and Fascia, Open Approach (ICD-10-PCS; principal; 2022-07-25 08:00)
DX: I49.5 Sick sinus syndrome (principal); M32.9 Systemic lupus erythematosus, unspecified; I95.1 Orthostatic hypotension; F43.10 Post-traumatic stress disorder, unspecified; F41.0 Panic disorder [episodic paroxysmal anxiety]; F31.9 Bipolar disorder, unspecified; R07.89 Other chest pain; E03.9 Hypothyroidism, unspecified; K76.0 Fatty (change of) liver, not elsewhere classified; R74.01 Elevation of levels of liver transaminase levels; K21.9 Gastro-esophageal reflux disease without esophagitis; F44.89 Other dissociative and conversion disorders; G90.A Postural orthostatic tachycardia syndrome [POTS]; G47.00 Insomnia, unspecified; R33.9 Retention of urine, unspecified; I10 Essential (primary) hypertension; E78.5 Hyperlipidemia, unspecified; E66.9 Obesity, unspecified; Z68.38 Body mass index [BMI] 38.0-38.9, adult; Z90.49 Acquired absence of other specified parts of digestive tract; Z98.84 Bariatric surgery status; Z87.891 Personal history of nicotine dependence; Z79.82 Long term (current) use of aspirin; Z79.890 Hormone replacement therapy; Z79.899 Other long term (current) drug therapy; Z91.013 Allergy to seafood; Z88.0 Allergy status to penicillin; Z91.018 Allergy to other foods; Z88.5 Allergy status to narcotic agent

== ENCOUNTER 2022-08-02 23:05 | Emergency (ER) | payer OTHER ==
[~2022-08-02] VITALS: Ht 167.6 cm; Wt 110.9 kg
[~2022-08-02 23:05] MED LIST changes: +ASPI81TA26 PO; +ATOR80TA59 PO; +QUET100T2 PO
[2022-08-02 23:44] LABS: BASO # 0.1 10^3/uL (0.0-0.2); BASO % 0.9 % (0.0-1.0); EOS # 0.3 10^3/uL (0.0-0.5); EOS % 4.9 % (0.0-3.0); HEMATOCRIT 39.6 % (36.0-47.0); HEMOGLOBIN 12.5 g/dl (12.0-15.5); LYMPH % 36.8 % (24.0-44.0); MEAN CORPUSCULAR HEMOGLOBIN 26.5 pg (27.0-33.0); MEAN CORPUSCULAR HGB CONC 31.6 g/dl (32.0-36.5); MEAN CORPUSCULAR VOLUME 83.9 fl (80.0-96.0); MONO # 0.4 10^3/uL (0.0-0.8); MONO % 6.5 % (2.0-8.0); NEUTROPHILS # 2.8 10^3/uL (1.5-8.5); NEUTROPHILS % 50.7 % (36.0-66.0); PLATELET COUNT, AUTOMATED 194 10^3/uL (150-450); RED BLOOD COUNT 4.72 10^6/uL (4.00-5.40); WHITE BLOOD COUNT 5.6 10^3/uL (4.0-10.0)
[2022-08-03] MEDS ORDERED: diazePAM 10MG/2ML SYRINGE IV ONE (00:40)
[2022-08-03 01:03] LABS: LIPASE 21 U/L (12-53)
[2022-08-03 01:09] LABS: ALBUMIN 3.2 G/DL (3.2-5.2); ALKALINE PHOSPHATASE 150 U/L (46-116); ALT/SGPT 38 U/L (7.0-40); AST/SGOT 26 U/L (<34); BILIRUBIN,DIRECT 0.1 MG/DL (<0.4); BILIRUBIN,TOTAL 0.3 MG/DL (0.3-1.2); BLOOD UREA NITROGEN 10 MG/DL (9-23); CALCIUM LEVEL 8.8 MG/DL (8.5-10.1); CARBON DIOXIDE LEVEL 26 MMOL/L (20-31); CHLORIDE LEVEL 105 MMOL/L (98-107); CK-MB VALUE MASS < 1.0 NG/ML (<3.6); CREATININE FOR GFR 0.61 MG/DL (0.55-1.30); FREE T4 0.63 NG/DL (0.89-1.76); GLOMERULAR FILTRATION RATE > 60.0 (>58); GLUCOSE, FASTING 102 MG/DL (60-100); POTASSIUM SERUM 3.9 MMOL/L (3.5-5.1); SODIUM LEVEL 139 MMOL/L (136-145); THYROID STIMULATING HORMONE 1.863 uIU/ML (0.55-4.78); TOTAL PROTEIN 6.3 G/DL (5.7-8.2)
[2022-08-03 01:12] LABS: CPK CREATINE PHOSPHOKINASE 43 U/L (34-145); MB/CK RELATIVE INDEX 2.32 (< OR =4)
[2022-08-03] MEDS ORDERED: NS 1,000 ML IV ONE (01:15)
[2022-08-03 01:54] LABS: INR 0.9; PROTHROMBIN TIME 12.3 SECONDS (12.5-14.5)
[2022-08-03 01:55] LABS: PARTIAL THROMBOPLASTIN TIME 28.3 SECONDS (24.8-34.2)
[2022-08-03 02:00] VITALS: BP 131/60
[2022-08-03 02:40] LABS: CK-MB VALUE MASS < 1.0 NG/ML (<3.6)
[2022-08-03 02:43] LABS: CPK CREATINE PHOSPHOKINASE 50 U/L (34-145)
[2022-08-03] MEDS ORDERED: KETOROLAC 30 MG/ML 1ML VIAL IV ONE (03:00)
[2022-08-03] MEDS ORDERED: ISOVUE-370 76% 100ML VIAL As Ordered ONE (03:17)
== END 2022-08-03 05:00 | disposition home or self-care (01) ==
LOC: M ED 23:05 → EDBD 23:05 → M ED 08-03 05:00
DX: L76.33 Postprocedural seroma of skin and subcutaneous tissue following a dermatologic procedure (principal); R07.89 Other chest pain; I10 Essential (primary) hypertension; E78.5 Hyperlipidemia, unspecified; F43.10 Post-traumatic stress disorder, unspecified; F29 Unspecified psychosis not due to a substance or known physiological condition; F17.200 Nicotine dependence, unspecified, uncomplicated; Z95.0 Presence of cardiac pacemaker; Z79.890 Hormone replacement therapy; Z79.82 Long term (current) use of aspirin; Z79.899 Other long term (current) drug therapy; Z88.0 Allergy status to penicillin; Z88.5 Allergy status to narcotic agent; Z91.013 Allergy to seafood; Z91.018 Allergy to other foods
CPT/HCPCS: 71046; 71275; 80048; 80076; 82550; 82553; 83690; 84439; 84443; 84484; 85025; 85610; 85730; 93005; 93041; 94760; 96361; 96374; 96375; 99285; J3360; Q9967

== ENCOUNTER 2022-10-02 01:08 | Inpatient (IN) | payer OTHER ==
[~2022-10-02] VITALS: Ht 167.6 cm; Wt 110.0 kg
[~2022-10-02 01:08] MED LIST changes: +TOPI-254 PO; -TOPI50TA9 PO
[2022-10-02 02:04] LABS: BASO # 0.1 10^3/uL (0.0-0.2); EOS # 0.1 10^3/uL (0.0-0.5); EOS % 1.3 % (0.0-3.0); HEMATOCRIT 40.4 % (36.0-47.0); HEMOGLOBIN 12.5 g/dl (12.0-15.5); LYMPH # 1.9 10^3/uL (1.5-5.0); LYMPH % 27.6 % (24.0-44.0); MEAN CORPUSCULAR HEMOGLOBIN 26.1 pg (27.0-33.0); MEAN CORPUSCULAR HGB CONC 30.9 g/dl (32.0-36.5); MEAN CORPUSCULAR VOLUME 84.3 fl (80.0-96.0); MONO # 0.4 10^3/uL (0.0-0.8); MONO % 6.2 % (2.0-8.0); NEUTROPHILS # 4.4 10^3/uL (1.5-8.5); NEUTROPHILS % 63.6 % (36.0-66.0); PLATELET COUNT, AUTOMATED 188 10^3/uL (150-450); RED BLOOD COUNT 4.79 10^6/uL (4.00-5.40)
[2022-10-02 02:26] LABS: PHENCYCLIDINE URINE NEGATIVE (NEGATIVE)
[2022-10-02 02:27] LABS: AMPHETAMINES LEVEL URINE NEGATIVE (NEGATIVE); BARBITURATES URINE NEGATIVE (NEGATIVE); CANNABINOIDS URINE NEGATIVE (NEGATIVE); COCAINE METABOLITE URINE NEGATIVE (NEGATIVE); METHADONE URINE NEGATIVE (NEGATIVE); OPIATES URINE NEGATIVE (NEGATIVE)
[2022-10-02 02:32] LABS: BENZODIAZEPINES URINE POSITIVE (NEGATIVE)
[2022-10-02 02:35] LABS: CPK CREATINE PHOSPHOKINASE 32 U/L (34-145)
[2022-10-02 02:36] LABS: ALBUMIN 3.1 G/DL (3.2-5.2); ALKALINE PHOSPHATASE 87 U/L (46-116); ALT/SGPT 9 U/L (7.0-40); AST/SGOT < 8 U/L (<34); BILIRUBIN,DIRECT < 0.1 MG/DL (<0.4); BILIRUBIN,TOTAL 0.2 MG/DL (0.3-1.2); BLOOD UREA NITROGEN 11 MG/DL (9-23); CALCIUM LEVEL 8.1 MG/DL (8.5-10.1); CARBON DIOXIDE LEVEL 22 MMOL/L (20-31); CHLORIDE LEVEL 108 MMOL/L (98-107); CK-MB VALUE MASS < 1.0 NG/ML (<3.6); CREATININE FOR GFR 0.79 MG/DL (0.55-1.30); GLOMERULAR FILTRATION RATE > 60.0 (>58); GLUCOSE, FASTING 123 MG/DL (60-100); MB/CK RELATIVE INDEX 3.12 (< OR =4); POTASSIUM SERUM 3.7 MMOL/L (3.5-5.1); SODIUM LEVEL 139 MMOL/L (136-145); TOTAL PROTEIN 6.2 G/DL (5.7-8.2)
[2022-10-02 02:38] LABS: THYROID STIMULATING HORMONE 1.143 uIU/ML (0.55-4.78)
[2022-10-02 02:47] LABS: RSV AMPLIFICATION NEGATIVE (NEGATIVE)
[2022-10-02] MEDS ORDERED: NS 1,000 ML IV ONE (03:50)
[2022-10-02 04:38] LABS: CK-MB VALUE MASS < 1.0 NG/ML (<3.6)
[2022-10-02 04:40] LABS: CPK CREATINE PHOSPHOKINASE 33 U/L (34-145); MB/CK RELATIVE INDEX 3.03 (< OR =4)
[2022-10-02] MEDS ORDERED: MAALOX 30 ML SUSP *UDC PO PRN (05:45)
[2022-10-02] MEDS ORDERED: MOM 30ML SUSPENSION UDC PO PRN (05:45)
[2022-10-02] MEDS: ACETAMINOPHEN TAB 650MG DOSE (2X325MG) PO PRN (06:11)
[2022-10-02] MEDS ORDERED: NYSTATIN 100,000 UNITS/GM TOPICAL PWD 15GM TOP PRN (06:30)
[2022-10-02] MEDS ORDERED: CIPROFLOXACIN 400 MG in IV 1 EA IV ONE (07:00)
[2022-10-02 08:20] VITALS: BP 142/86
[2022-10-02] MEDS ORDERED: ONDANSETRON 4MG 2ML VIAL IV PRN (09:25)
[2022-10-02 12:00] VITALS: BP_SYST 122; BP_SYST 142; BP_SYST 158; BP_DIAS 60; BP_DIAS 79; BP_DIAS 86
[2022-10-02] MEDS: HEPARIN SOD (PORCINE) 5000UNITS/ML 1ML VIAL/SYRINGE SC SCH ×2 (13:45→21:11)
[2022-10-02] MEDS ORDERED: AMLO2.5T3 PO (14:19)
[2022-10-02] MEDS ORDERED: ZOLO100T PO (14:19)
[2022-10-02] MEDS ORDERED: METO1TAB87 PO (14:19)
[2022-10-02] MEDS ORDERED: BELS1TAB2 PO (14:19)
[2022-10-02] MEDS ORDERED: HOME MED LIST COMPLETE! XX SCH (14:20)
[2022-10-02] MEDS ORDERED: TOPIRAMATE (TopAMAX) 25 MG TAB PO PRN (16:35)
[2022-10-02 17:45] VITALS: BP 145/86
[2022-10-02] MEDS: CIPROFLOXACIN 400 MG in IV 1 EA IV SCH (17:56)
[2022-10-02] MEDS: SERTRALINE 100 MG TAB PO SCH (17:56)
[2022-10-02] MEDS: METOPROLOL TART 25 MG TABLET PO SCH (17:57)
[2022-10-02] MEDS ORDERED: clonazePAM 0.5 MG TAB PO ONE (18:00)
[2022-10-02 20:00] VITALS: BP 146/73
[2022-10-02] MEDS ORDERED: ASPIRIN 81MG ENTERIC TABLET PO SCH (21:00)
[2022-10-02] MEDS ORDERED: CYANOCOBALAMIN 500 MCG TAB PO SCH (21:00)
[2022-10-02] MEDS ORDERED: MULTIVITAMINS/MINERALS THERAP 1 TAB PO SCH (21:00)
[2022-10-02] MEDS ORDERED: OMEPRAZOLE 20MG CAP PO SCH (21:00)
[2022-10-02] MEDS ORDERED: LURASIDONE 20 MG TAB (LATUDA) PO SCH (21:00)
[2022-10-02] MEDS: HYDROXYCHLOROQUINE 200 MG TAB PO SCH (21:11)
[2022-10-02] MEDS ORDERED: traMADol 50 MG TAB PO ONE (22:00)
[2022-10-02 23:42] VITALS: BP 133/73
[2022-10-03 03:35] VITALS: BP 146/79
[2022-10-03] MEDS: ACETAMINOPHEN TAB 650MG DOSE (2X325MG) PO PRN (05:37)
[2022-10-03] MEDS: CIPROFLOXACIN 400 MG in IV 1 EA IV SCH (05:38)
[2022-10-03] MEDS: HEPARIN SOD (PORCINE) 5000UNITS/ML 1ML VIAL/SYRINGE SC SCH (05:38)
[2022-10-03] MEDS ORDERED: LEVOTHYROXINE 25MCG TABLET (0.025MG) PO SCH (06:00)
[2022-10-03 06:02] LABS: BASO # 0.1 10^3/uL (0.0-0.2); BASO % 1.1 % (0.0-1.0); EOS % 0.6 % (0.0-3.0); HEMATOCRIT 43.7 % (36.0-47.0); HEMOGLOBIN 13.6 g/dl (12.0-15.5); LYMPH % 31.6 % (24.0-44.0); MEAN CORPUSCULAR HEMOGLOBIN 25.9 pg (27.0-33.0); MEAN CORPUSCULAR HGB CONC 31.1 g/dl (32.0-36.5); MEAN CORPUSCULAR VOLUME 83.1 fl (80.0-96.0); MONO # 0.5 10^3/uL (0.0-0.8); MONO % 7.7 % (2.0-8.0); NEUTROPHILS # 3.8 10^3/uL (1.5-8.5); NEUTROPHILS % 58.8 % (36.0-66.0); PLATELET COUNT, AUTOMATED 220 10^3/uL (150-450); RED BLOOD COUNT 5.26 10^6/uL (4.00-5.40); WHITE BLOOD COUNT 6.5 10^3/uL (4.0-10.0)
[2022-10-03 06:30] LABS: BLOOD UREA NITROGEN 7 MG/DL (9-23); CALCIUM LEVEL 8.8 MG/DL (8.5-10.1); CARBON DIOXIDE LEVEL 24 MMOL/L (20-31); CHLORIDE LEVEL 108 MMOL/L (98-107); CREATININE FOR GFR 0.71 MG/DL (0.55-1.30); GLOMERULAR FILTRATION RATE > 60.0 (>58); GLUCOSE, FASTING 89 MG/DL (60-100); POTASSIUM SERUM 4.2 MMOL/L (3.5-5.1); SODIUM LEVEL 141 MMOL/L (136-145)
[2022-10-03] MEDS ORDERED: CIPR-249 PO (07:51)
[2022-10-03] MEDS: HYDROXYCHLOROQUINE 200 MG TAB PO SCH (08:56)
[2022-10-03 08:57] VITALS: BP 137/72
[2022-10-03] MEDS: SERTRALINE 100 MG TAB PO SCH (08:57)
[2022-10-03] MEDS: METOPROLOL TART 25 MG TABLET PO SCH (08:57)
[2022-10-03 08:58] VITALS: BP 137/72
[2022-10-03] MEDS ORDERED: ATORVASTATIN 20 MG TAB PO SCH (09:00)
[2022-10-03] MEDS ORDERED: LORATADINE 10 MG TAB PO SCH (09:00)
== END 2022-10-03 10:17 | disposition home or self-care (01) | DRG 312 ==
LOC: M ED 01:08 → CANRESERV 04:28 → ENRESERV 04:28 → M ED INP 05:26 → ENRESERV 06:26 → M PCU 08:20
PROVIDERS: ADMIT Family Medicine; ATTEND Internal Medicine
DX: R55 Syncope and collapse (principal); I49.5 Sick sinus syndrome; M35.9 Systemic involvement of connective tissue, unspecified; F43.10 Post-traumatic stress disorder, unspecified; F41.0 Panic disorder [episodic paroxysmal anxiety]; E03.9 Hypothyroidism, unspecified; F32.A Depression, unspecified; R07.9 Chest pain, unspecified; Z95.0 Presence of cardiac pacemaker; Z98.84 Bariatric surgery status; Z90.49 Acquired absence of other specified parts of digestive tract; Z87.891 Personal history of nicotine dependence; N30.90 Cystitis, unspecified without hematuria; K21.9 Gastro-esophageal reflux disease without esophagitis; L30.4 Erythema intertrigo; Z79.82 Long term (current) use of aspirin; Z79.890 Hormone replacement therapy; Z79.899 Other long term (current) drug therapy; Z88.0 Allergy status to penicillin; Z88.5 Allergy status to narcotic agent; Z91.013 Allergy to seafood; Z91.018 Allergy to other foods; R33.9 Retention of urine, unspecified

== ENCOUNTER 2022-12-11 23:17 | Inpatient (IN) | payer OTHER, MEDICAID ==
[~2022-12-11] VITALS: Ht 167.6 cm; Wt 101.8 kg
[2022-12-11] MEDS: OMEPRAZOLE 20MG CAP PO SCH (21:00)
[~2022-12-11 23:17] MED LIST changes: +CIPR-249 PO; -HYDR200T3 PO; +HYDR200T46 PO; +METO1TAB87 PO
[2022-12-12 00:09] LABS: BASO # 0.1 10^3/uL (0.0-0.2); BASO % 1.1 % (0.0-1.0); EOS # 0.2 10^3/uL (0.0-0.5); EOS % 2.4 % (0.0-3.0); HEMATOCRIT 41.8 % (36.0-47.0); HEMOGLOBIN 13.2 g/dl (12.0-15.5); LYMPH # 1.7 10^3/uL (1.5-5.0); LYMPH % 26.8 % (24.0-44.0); MEAN CORPUSCULAR HEMOGLOBIN 25.5 pg (27.0-33.0); MEAN CORPUSCULAR HGB CONC 31.6 g/dl (32.0-36.5); MEAN CORPUSCULAR VOLUME 80.7 fl (80.0-96.0); MONO # 0.3 10^3/uL (0.0-0.8); MONO % 5.2 % (2.0-8.0); NEUTROPHILS # 3.9 10^3/uL (1.5-8.5); NEUTROPHILS % 64.2 % (36.0-66.0); PLATELET COUNT, AUTOMATED 203 10^3/uL (150-450); RED BLOOD COUNT 5.18 10^6/uL (4.00-5.40); WHITE BLOOD COUNT 6.2 10^3/uL (4.0-10.0)
[2022-12-12] MEDS ORDERED: NS 1,000 ML IV SCH (00:10)
[2022-12-12 00:24] LABS: LIPASE 24 U/L (12-53)
[2022-12-12 00:25] LABS: CK-MB VALUE MASS < 1.0 NG/ML (<3.6)
[2022-12-12 00:27] LABS: ALBUMIN 3.5 G/DL (3.2-5.2); ALKALINE PHOSPHATASE 87 U/L (46-116); ALT/SGPT 16 U/L (7.0-40); AST/SGOT 27 U/L (<34); BILIRUBIN,DIRECT 0.2 MG/DL (<0.4); BILIRUBIN,TOTAL 0.6 MG/DL (0.3-1.2); BLOOD UREA NITROGEN 6 MG/DL (9-23); CALCIUM LEVEL 8.3 MG/DL (8.5-10.1); CARBON DIOXIDE LEVEL 21 MMOL/L (20-31); CHLORIDE LEVEL 108 MMOL/L (98-107); CPK CREATINE PHOSPHOKINASE 203 U/L (34-145); CREATININE FOR GFR 0.64 MG/DL (0.55-1.30); GLOMERULAR FILTRATION RATE > 60.0 (>58); GLUCOSE, FASTING 132 MG/DL (60-100); MB/CK RELATIVE INDEX 0.49 (< OR =4); POTASSIUM SERUM 3.7 MMOL/L (3.5-5.1); SODIUM LEVEL 138 MMOL/L (136-145); TOTAL PROTEIN 6.2 G/DL (5.7-8.2)
[2022-12-12] MEDS ORDERED: ISOVUE-370 76% 100ML VIAL As Ordered ONE (00:44)
[2022-12-12 01:20] LABS: HCG, SERUM QUALITATIVE NEGATIVE (NEGATIVE)
[2022-12-12] MEDS ORDERED: TRAM50TA2 PO (03:12)
[2022-12-12] MEDS ORDERED: LURA80TA PO (03:12)
[2022-12-12] MEDS ORDERED: LIPI80TA PO (03:12)
[2022-12-12] MEDS ORDERED: HOME MED LIST COMPLETE! XX SCH (03:15)
[2022-12-12 03:44] LABS: RSV AMPLIFICATION NEGATIVE (NEGATIVE)
[2022-12-12] MEDS ORDERED: BISACODYL 10MG SUPP PR PRN (04:00)
[2022-12-12] MEDS ORDERED: FOSFOMYCIN TROMETHAMINE 3 GM POWDER PACKET (MONUROL) PO ONE (05:00)
[2022-12-12] MEDS ORDERED: BISACODYL 5MG TAB PO ONE (05:00)
[2022-12-12] MEDS ORDERED: traMADol 50 MG TAB PO ONE (05:00)
[2022-12-12] MEDS ORDERED: CALCIUM CARBONATE 500 MG CHEW U/D PO ONE (05:00)
[2022-12-12 05:10] VITALS: BP 123/76; TEMP 97.7; O2SAT 98
[2022-12-12] MEDS: LEVOTHYROXINE 25MCG TABLET (0.025MG) PO SCH (05:20)
[2022-12-12 06:03] LABS: BASO # 0.1 10^3/uL (0.0-0.2); BASO % 1.1 % (0.0-1.0); EOS # 0.1 10^3/uL (0.0-0.5); EOS % 1.9 % (0.0-3.0); HEMATOCRIT 39.9 % (36.0-47.0); HEMOGLOBIN 12.6 g/dl (12.0-15.5); LYMPH % 35.9 % (24.0-44.0); MEAN CORPUSCULAR HEMOGLOBIN 25.8 pg (27.0-33.0); MEAN CORPUSCULAR HGB CONC 31.6 g/dl (32.0-36.5); MEAN CORPUSCULAR VOLUME 81.6 fl (80.0-96.0); MONO # 0.3 10^3/uL (0.0-0.8); MONO % 5.3 % (2.0-8.0); NEUTROPHILS # 3.2 10^3/uL (1.5-8.5); NEUTROPHILS % 55.6 % (36.0-66.0); PLATELET COUNT, AUTOMATED 188 10^3/uL (150-450); RED BLOOD COUNT 4.89 10^6/uL (4.00-5.40); WHITE BLOOD COUNT 5.7 10^3/uL (4.0-10.0)
[2022-12-12 06:20] LABS: ALBUMIN 3.4 G/DL (3.2-5.2); ALKALINE PHOSPHATASE 86 U/L (46-116); ALT/SGPT 13 U/L (7.0-40); AST/SGOT 15 U/L (<34); BILIRUBIN,TOTAL 0.6 MG/DL (0.3-1.2); BLOOD UREA NITROGEN 6 MG/DL (9-23); CALCIUM LEVEL 9.4 MG/DL (8.5-10.1); CARBON DIOXIDE LEVEL 23 MMOL/L (20-31); CHLORIDE LEVEL 106 MMOL/L (98-107); CREATININE FOR GFR 0.68 MG/DL (0.55-1.30); GLOMERULAR FILTRATION RATE > 60.0 (>58); GLUCOSE, FASTING 105 MG/DL (60-100); MAGNESIUM LEVEL 1.9 MG/DL (1.8-2.4); PHOSPHORUS LEVEL 3.2 MG/DL (2.5-4.9); POTASSIUM SERUM 3.7 MMOL/L (3.5-5.1); SODIUM LEVEL 138 MMOL/L (136-145); TOTAL PROTEIN 6.3 G/DL (5.7-8.2)
[2022-12-12 06:22] LABS: FREE T4 0.93 NG/DL (0.89-1.76)
[2022-12-12] MEDS: LORATADINE 10 MG TAB PO SCH (07:55)
[2022-12-12] MEDS: DOCUSATE SODIUM 100MG CAPSULE PO SCH ×3 (07:55→20:32)
[2022-12-12] MEDS: HYDROXYCHLOROQUINE 200 MG TAB PO SCH ×2 (07:55→20:31)
[2022-12-12] MEDS: ENOXAPARIN 40MG/0.4ML SYRINGE (J1650 PER 10MG) SC SCH (07:55)
[2022-12-12 08:00] VITALS: BP 125/84; TEMP 96.9; O2SAT 100
[2022-12-12] MEDS ORDERED: cefTRIAXone SOD 1 GM in D5W MINI-BAG PLUS 50 ML IV SCH (08:00)
[2022-12-12] MEDS: ACETAMINOPHEN TAB 650MG DOSE (2X325MG) PO PRN (11:55)
[2022-12-12 12:00] VITALS: BP 163/83; TEMP 97.6; O2SAT 99
[2022-12-12] MEDS ORDERED: NYSTATIN 100,000 UNITS/GM TOPICAL PWD 15GM TOP PRN (12:00)
[2022-12-12 16:00] VITALS: BP 162/77; TEMP 98.6; O2SAT 98
[2022-12-12] MEDS: LURASIDONE HCL 40MG TAB (LATUDA) PO SCH (18:13)
[2022-12-12] MEDS ORDERED: tiZANidine 4 MG TAB PO PRN (19:50)
[2022-12-12] MEDS ORDERED: PILL CUTTER 1 EACH XX PRN (19:50)
[2022-12-12 19:53] VITALS: BP 152/80; TEMP 98.5; O2SAT 97
[2022-12-12] MEDS ORDERED: POTASSIUM CHLORIDE 10MEQ SR TABLET PO ONE (20:00)
[2022-12-12] MEDS ORDERED: MAGNESIUM OXIDE 400MG TAB (MAG-OX) PO ONE (20:00)
[2022-12-12] MEDS: traMADol 50 MG TAB PO SCH (20:31)
[2022-12-12] MEDS: ATORVASTATIN 20 MG TAB PO SCH (20:31)
[2022-12-12] MEDS: ASPIRIN 81MG ENTERIC TABLET PO SCH (20:32)
[2022-12-12] MEDS: OMEPRAZOLE 20MG CAP PO SCH (20:32)
[2022-12-12] MEDS: SENNA 8.6 MG TAB (SENOKOT) PO SCH (20:32)
[2022-12-12] MEDS ORDERED: FLECAINIDE 50MG TABLET PO SCH (21:00)
[2022-12-12] MEDS ORDERED: TEMAZEPAM 7.5 MG CAP PO PRN (23:30)
[2022-12-13 00:12] VITALS: BP 138/81; TEMP 98.2; O2SAT 96
[2022-12-13] MEDS ORDERED: FAMOTIDINE 20MG/2ML VIAL IVP ONE (04:00)
[2022-12-13] MEDS ORDERED: diphenhydrAMINE 50MG/ML VIAL IV ONE (04:00)
[2022-12-13 04:16] VITALS: BP 146/80; TEMP 97.6; O2SAT 100
[2022-12-13] MEDS ORDERED: predniSONE 10MG TAB PO ONE (06:00)
[2022-12-13] MEDS: LEVOTHYROXINE 25MCG TABLET (0.025MG) PO SCH (06:10)
[2022-12-13 06:33] LABS: HEMATOCRIT 40.1 % (36.0-47.0); HEMOGLOBIN 12.8 g/dl (12.0-15.5); MEAN CORPUSCULAR HEMOGLOBIN 25.9 pg (27.0-33.0); MEAN CORPUSCULAR HGB CONC 31.9 g/dl (32.0-36.5); MEAN CORPUSCULAR VOLUME 81.2 fl (80.0-96.0); PLATELET COUNT, AUTOMATED 198 10^3/uL (150-450); RED BLOOD COUNT 4.94 10^6/uL (4.00-5.40); WHITE BLOOD COUNT 6.3 10^3/uL (4.0-10.0)
[2022-12-13 06:47] LABS: ALBUMIN 3.8 G/DL (3.2-5.2); ALKALINE PHOSPHATASE 83 U/L (46-116); ALT/SGPT 14 U/L (7.0-40); AST/SGOT < 8 U/L (<34); BILIRUBIN,TOTAL 0.6 MG/DL (0.3-1.2); BLOOD UREA NITROGEN < 5 MG/DL (9-23); CALCIUM LEVEL 8.8 MG/DL (8.5-10.1); CARBON DIOXIDE LEVEL 25 MMOL/L (20-31); CHLORIDE LEVEL 109 MMOL/L (98-107); CREATININE FOR GFR 0.68 MG/DL (0.55-1.30); GLOMERULAR FILTRATION RATE > 60.0 (>58); GLUCOSE, FASTING 85 MG/DL (60-100); MAGNESIUM LEVEL 1.9 MG/DL (1.8-2.4); POTASSIUM SERUM 3.5 MMOL/L (3.5-5.1); SODIUM LEVEL 142 MMOL/L (136-145); TOTAL PROTEIN 6.7 G/DL (5.7-8.2)
[2022-12-13 07:45] VITALS: BP 135/64; TEMP 97.6; O2SAT 99
[2022-12-13] MEDS: ENOXAPARIN 40MG/0.4ML SYRINGE (J1650 PER 10MG) SC SCH (08:43)
[2022-12-13] MEDS: HYDROXYCHLOROQUINE 200 MG TAB PO SCH ×2 (08:56→20:18)
[2022-12-13] MEDS: LORATADINE 10 MG TAB PO SCH (08:57)
[2022-12-13] MEDS: diphenhydrAMINE 50MG/ML VIAL IV SCH ×5 (08:57→23:22)
[2022-12-13] MEDS: DOCUSATE SODIUM 100MG CAPSULE PO SCH ×4 (08:57→20:15)
[2022-12-13] MEDS: traMADol 50 MG TAB PO SCH ×2 (08:58→20:18)
[2022-12-13] MEDS ORDERED: MIRALAX *UNIT DOSE* 17GM PACKET PO PRN (11:50)
[2022-12-13 12:05] VITALS: BP 149/72; TEMP 96.8; O2SAT 99
[2022-12-13] MEDS: FAMOTIDINE 20MG/2ML VIAL IVP SCH (16:11)
[2022-12-13] MEDS: LURASIDONE HCL 40MG TAB (LATUDA) PO SCH (17:53)
[2022-12-13 19:53] VITALS: BP 139/90; TEMP 97.9; O2SAT 98
[2022-12-13] MEDS: SENNA 8.6 MG TAB (SENOKOT) PO SCH (20:15)
[2022-12-13] MEDS: ATORVASTATIN 20 MG TAB PO SCH (20:15)
[2022-12-13] MEDS: OMEPRAZOLE 20MG CAP PO SCH (20:16)
[2022-12-13] MEDS: ASPIRIN 81MG ENTERIC TABLET PO SCH (20:17)
[2022-12-13] MEDS: METOPROLOL TART 12.5 MG PER 1/2 TAB PO SCH (20:19)
[2022-12-14 00:25] VITALS: BP 182/96; TEMP 97.1; O2SAT 100
[2022-12-14] MEDS: ACETAMINOPHEN TAB 650MG DOSE (2X325MG) PO PRN (00:57)
[2022-12-14 02:00] VITALS: BP 176/90
[2022-12-14] MEDS: diphenhydrAMINE 50MG/ML VIAL IV SCH ×2 (04:00→04:26)
[2022-12-14 04:26] VITALS: BP 150/74; TEMP 96.9; O2SAT 99
[2022-12-14] MEDS: FAMOTIDINE 20MG/2ML VIAL IVP SCH (04:26)
[2022-12-14] MEDS: LEVOTHYROXINE 25MCG TABLET (0.025MG) PO SCH (05:23)
[2022-12-14 06:50] LABS: HEMATOCRIT 41.4 % (36.0-47.0); HEMOGLOBIN 13.1 g/dl (12.0-15.5); MEAN CORPUSCULAR HEMOGLOBIN 25.9 pg (27.0-33.0); MEAN CORPUSCULAR HGB CONC 31.6 g/dl (32.0-36.5); MEAN CORPUSCULAR VOLUME 81.8 fl (80.0-96.0); PLATELET COUNT, AUTOMATED 224 10^3/uL (150-450); RED BLOOD COUNT 5.06 10^6/uL (4.00-5.40); WHITE BLOOD COUNT 8.7 10^3/uL (4.0-10.0)
[2022-12-14 07:06] LABS: ALBUMIN 3.6 G/DL (3.2-5.2); ALKALINE PHOSPHATASE 78 U/L (46-116); ALT/SGPT < 9 U/L (7.0-40); AST/SGOT < 8 U/L (<34); BILIRUBIN,TOTAL 0.6 MG/DL (0.3-1.2); BLOOD UREA NITROGEN 7 MG/DL (9-23); CALCIUM LEVEL 8.5 MG/DL (8.5-10.1); CARBON DIOXIDE LEVEL 24 MMOL/L (20-31); CHLORIDE LEVEL 109 MMOL/L (98-107); CREATININE FOR GFR 0.72 MG/DL (0.55-1.30); GLOMERULAR FILTRATION RATE > 60.0 (>58); GLUCOSE, FASTING 82 MG/DL (60-100); POTASSIUM SERUM 3.4 MMOL/L (3.5-5.1); SODIUM LEVEL 141 MMOL/L (136-145); TOTAL PROTEIN 5.8 G/DL (5.7-8.2)
[2022-12-14] MEDS: ENOXAPARIN 40MG/0.4ML SYRINGE (J1650 PER 10MG) SC SCH (08:49)
[2022-12-14 08:56] VITALS: BP 143/78; TEMP 97.6; O2SAT 97
[2022-12-14] MEDS: HYDROXYCHLOROQUINE 200 MG TAB PO SCH (08:59)
[2022-12-14] MEDS: DOCUSATE SODIUM 100MG CAPSULE PO SCH (08:59)
[2022-12-14 09:00] VITALS: BP 143/78
[2022-12-14] MEDS: LORATADINE 10 MG TAB PO SCH (09:00)
[2022-12-14] MEDS: METOPROLOL TART 12.5 MG PER 1/2 TAB PO SCH (09:00)
[2022-12-14] MEDS: traMADol 50 MG TAB PO SCH (09:00)
[2022-12-14] MEDS ORDERED: COLA100C5 PO (09:12)
[2022-12-14] MEDS ORDERED: NYST10006 TOP (09:12)
[2022-12-14] MEDS ORDERED: SENN-188 PO (09:12)
[2022-12-14] MEDS ORDERED: METO1TAB87 PO (09:12)
[2022-12-14] MEDS: POTASSIUM CHLORIDE 10MEQ SR TABLET PO SCH ×2 (09:58→12:06)
== END 2022-12-14 12:52 | disposition home or self-care (01) | DRG 309 ==
LOC: M ED 23:17 → EDBD 23:17 → M ED INP 12-12 04:00 → ENRESERV 12-12 04:18 → M MSPAV 12-12 05:01 → M PCU 12-12 08:09
PROVIDERS: ADMIT Internal Medicine; ATTEND Internal Medicine
DX: I47.1 Supraventricular tachycardia (principal); N39.0 Urinary tract infection, site not specified; R55 Syncope and collapse; K59.00 Constipation, unspecified; F41.0 Panic disorder [episodic paroxysmal anxiety]; F32.A Depression, unspecified; F43.10 Post-traumatic stress disorder, unspecified; E78.5 Hyperlipidemia, unspecified; E03.9 Hypothyroidism, unspecified; K21.9 Gastro-esophageal reflux disease without esophagitis; I49.5 Sick sinus syndrome; R07.89 Other chest pain; M35.9 Systemic involvement of connective tissue, unspecified; M32.9 Systemic lupus erythematosus, unspecified; I95.1 Orthostatic hypotension; Z79.82 Long term (current) use of aspirin; Z79.890 Hormone replacement therapy; Z95.0 Presence of cardiac pacemaker; Z79.899 Other long term (current) drug therapy; Z79.891 Long term (current) use of opiate analgesic; Z88.0 Allergy status to penicillin; Z88.5 Allergy status to narcotic agent; Z91.013 Allergy to seafood; Z91.018 Allergy to other foods; Z98.84 Bariatric surgery status; Z90.49 Acquired absence of other specified parts of digestive tract; Z87.891 Personal history of nicotine dependence; L50.0 Allergic urticaria; T46.2X5A Adverse effect of other antidysrhythmic drugs, initial encounter; R10.84 Generalized abdominal pain

== ENCOUNTER 2023-02-20 00:39 | Emergency (ER) | payer OTHER, MEDICAID ==
[~2023-02-20] VITALS: Ht 167.6 cm; Wt 106.0 kg
[~2023-02-20 00:39] MED LIST changes: +COLA100C5 PO; +DICY-61 PO; -DICY10CA13 PO; +LIPI80TA PO; +LORA-1041 PO; -LORA-674 PO; +LURA80TA PO; -MIRT-62 PO; +MIRT-88 PO; +NYST10006 TOP; +SENN-188 PO
[2023-02-20 01:41] LABS: BASO # 0.1 10^3/uL (0.0-0.2); BASO % 0.7 % (0.0-1.0); EOS # 0.1 10^3/uL (0.0-0.5); EOS % 0.9 % (0.0-3.0); HEMATOCRIT 41.8 % (36.0-47.0); HEMOGLOBIN 13.3 g/dl (12.0-15.5); LYMPH % 25.4 % (24.0-44.0); MEAN CORPUSCULAR HEMOGLOBIN 26.5 pg (27.0-33.0); MEAN CORPUSCULAR HGB CONC 31.8 g/dl (32.0-36.5); MEAN CORPUSCULAR VOLUME 83.4 fl (80.0-96.0); MONO # 0.8 10^3/uL (0.0-0.8); MONO % 6.5 % (2.0-8.0); NEUTROPHILS # 7.7 10^3/uL (1.5-8.5); NEUTROPHILS % 66.1 % (36.0-66.0); PLATELET COUNT, AUTOMATED 223 10^3/uL (150-450); RED BLOOD COUNT 5.01 10^6/uL (4.00-5.40); WHITE BLOOD COUNT 11.6 10^3/uL (4.0-10.0)
[2023-02-20 02:02] LABS: BLOOD UREA NITROGEN 11 MG/DL (9-23); CALCIUM LEVEL 8.7 MG/DL (8.5-10.1); CARBON DIOXIDE LEVEL 21 MMOL/L (20-31); CHLORIDE LEVEL 109 MMOL/L (98-107); CK-MB VALUE MASS 1.5 NG/ML (<3.6); CPK CREATINE PHOSPHOKINASE 195 U/L (34-145); CREATININE FOR GFR 0.86 MG/DL (0.55-1.30); GLOMERULAR FILTRATION RATE > 60.0 (>58); GLUCOSE, FASTING 123 MG/DL (60-100); MB/CK RELATIVE INDEX 0.76 (< OR =4); POTASSIUM SERUM 3.4 MMOL/L (3.5-5.1); SODIUM LEVEL 141 MMOL/L (136-145)
[2023-02-20] MEDS ORDERED: KETOROLAC 30 MG/ML 1ML VIAL IV ONE (02:25)
[2023-02-20] MEDS ORDERED: ISOVUE-370 76% 100ML VIAL As Ordered ONE (02:32)
[2023-02-20] MEDS: NITROGLYCERIN 0.4MG SUBL TABLET SL PRN ×3 (02:50→03:08)
[2023-02-20 02:59] LABS: CK-MB VALUE MASS 1.8 NG/ML (<3.6)
[2023-02-20] MEDS ORDERED: ASPIRIN 81MG CHEW TABLET PO ONE (03:00)
[2023-02-20] MEDS ORDERED: fentaNYL 100 MCG/2 ML INJECTION IV ONE ×2 (03:35→04:15)
[2023-02-20] MEDS ORDERED: HEPARIN SOD (PORCINE) 5000UNITS/ML 1ML VIAL/SYRINGE IV ONE (04:15)
[2023-02-20] MEDS ORDERED: HEPARIN SOD (PORCINE) 5000UNITS/ML 1ML VIAL/SYRINGE IV PRN (04:15)
[2023-02-20] MEDS ORDERED: NITROGLYCERIN 2% OINT 1 GM *U/D* PKT TOP ONE (04:15)
[2023-02-20] MEDS ORDERED: HEPARIN DRIP 25,000 UNITS in IV 1 EA IV SCH (04:15)
[2023-02-20] MEDS ORDERED: CLOPIDOGREL 300 MG TAB (PLAVIX) PO STA (04:18)
[2023-02-20] MEDS ORDERED: METOPROLOL TART 25 MG TABLET PO ONE (04:30)
[2023-02-20] MEDS ORDERED: fentaNYL 100 MCG/2 ML INJECTION IV PRN (04:30)
[2023-02-20] MEDS: METOPROLOL 5 MG/5 ML VIAL IV PRN ×3 (05:05→05:17)
[2023-02-20 05:17] VITALS: BP 161/83; TEMP 98.8
[2023-02-20 06:40] VITALS: BP 155/81; O2SAT 90
== END 2023-02-20 06:45 | disposition short-term general hospital (02) ==
LOC: M ED 00:39 → EDBD 00:39 → M ED 06:45
DX: I21.4 Non-ST elevation (NSTEMI) myocardial infarction (principal); I25.10 Atherosclerotic heart disease of native coronary artery without angina pectoris; R56.9 Unspecified convulsions; I49.5 Sick sinus syndrome; Z88.0 Allergy status to penicillin; Z88.5 Allergy status to narcotic agent; Z88.8 Allergy status to other drugs, medicaments and biological substances; Z91.018 Allergy to other foods; Z91.013 Allergy to seafood; Z79.899 Other long term (current) drug therapy; Z79.82 Long term (current) use of aspirin
CPT/HCPCS: 71045; 71275; 80048; 82550; 82553; 84484; 85025; 85730; 87635; 93005; 93041; 94760; 96365; 96366; 96367; 96375; 96376; 99285; J3010; Q9967

== ENCOUNTER 2023-06-10 00:31 | Emergency (ER) | payer OTHER, MEDICAID ==
[~2023-06-10] VITALS: Ht 167.6 cm; Wt 97.0 kg
[~2023-06-10 00:31] MED LIST changes: +TOPI-21 PO; -TOPI-254 PO
[2023-06-10 02:08] LABS: VENOUS BASE EXCESS -2.7 (-2.0-2.0); VENOUS HCO3 23.5 MMOL/L (23.0-27.0); VENOUS O2 SATURATION 87.8 % (60.0-80.0); VENOUS PARTIAL PRESSURE O2 54.4 mmHg (30.0-50.0); VENOUS PH 7.327 UNITS (7.330-7.430)
[2023-06-10 02:12] LABS: BASO # 0.1 10^3/uL (0.0-0.2); BASO % 0.9 % (0.0-1.0); EOS # 0.1 10^3/uL (0.0-0.5); EOS % 0.9 % (0.0-3.0); HEMATOCRIT 43.1 % (36.0-47.0); HEMOGLOBIN 14.2 g/dl (12.0-15.5); LYMPH # 2.6 10^3/uL (1.5-5.0); LYMPH % 22.5 % (24.0-44.0); MEAN CORPUSCULAR HEMOGLOBIN 26.9 pg (27.0-33.0); MEAN CORPUSCULAR HGB CONC 32.9 g/dl (32.0-36.5); MEAN CORPUSCULAR VOLUME 81.8 fl (80.0-96.0); MONO # 0.7 10^3/uL (0.0-0.8); MONO % 6.3 % (2.0-8.0); NEUTROPHILS # 7.9 10^3/uL (1.5-8.5); NEUTROPHILS % 69.1 % (36.0-66.0); PLATELET COUNT, AUTOMATED 309 10^3/uL (150-450); RED BLOOD COUNT 5.27 10^6/uL (4.00-5.40); WHITE BLOOD COUNT 11.5 10^3/uL (4.0-10.0)
[2023-06-10] MEDS ORDERED: HYDROMORPHONE HCL 0.5 MG/ 0.5 ML SYRINGE IV ONE (02:20)
[2023-06-10 02:36] LABS: LIPASE 51 U/L (12-53)
[2023-06-10 02:37] LABS: CPK CREATINE PHOSPHOKINASE 145 U/L (34-145)
[2023-06-10 02:46] LABS: RSV AMPLIFICATION NEGATIVE (NEGATIVE)
[2023-06-10 03:25] LABS: ALBUMIN 3.9 G/DL (3.2-5.2); ALKALINE PHOSPHATASE 88 U/L (46-116); ALT/SGPT 23 U/L (7.0-40); AST/SGOT 15 U/L (<34); BILIRUBIN,DIRECT 0.1 MG/DL (<0.4); BILIRUBIN,TOTAL 0.4 MG/DL (0.3-1.2); BLOOD UREA NITROGEN 13 MG/DL (9-23); CALCIUM LEVEL 8.8 MG/DL (8.5-10.1); CARBON DIOXIDE LEVEL 22 MMOL/L (20-31); CHLORIDE LEVEL 109 MMOL/L (98-107); CK-MB VALUE MASS < 1.0 NG/ML (<3.6); CREATININE FOR GFR 0.84 MG/DL (0.55-1.30); GLOMERULAR FILTRATION RATE > 60.0 (>58); GLUCOSE, FASTING 107 MG/DL (60-100); MB/CK RELATIVE INDEX 0.68 (< OR =4); POTASSIUM SERUM 3.7 MMOL/L (3.5-5.1); SODIUM LEVEL 142 MMOL/L (136-145); THYROID STIMULATING HORMONE 3.834 uIU/ML (0.55-4.78); TOTAL PROTEIN 7.3 G/DL (5.7-8.2)
[2023-06-10] MEDS ORDERED: ISOVUE-370 76% 100ML VIAL As Ordered ONE (03:29)
[2023-06-10] MEDS: METOPROLOL 5 MG/5 ML VIAL IV SCH ×3 (03:29→03:45)
[2023-06-10] MEDS ORDERED: KETOROLAC 30 MG/ML 1ML VIAL IV ONE (05:00)
[2023-06-10] MEDS ORDERED: hydrALAZINE 20MG/ML 1ML VIAL IV ONE (06:45)
[2023-06-10] MEDS ORDERED: METO1TAB87 PO (06:46)
[2023-06-10 06:49] VITALS: BP 180/112
[2023-06-10 07:31] VITALS: BP 146/77; TEMP 98.8; O2SAT 99
== END 2023-06-10 07:26 | disposition home or self-care (01) ==
LOC: M ED 00:31 → EDBD 00:31 → M ED 07:26
DX: R07.89 Other chest pain (principal); I10 Essential (primary) hypertension; E78.5 Hyperlipidemia, unspecified; K21.9 Gastro-esophageal reflux disease without esophagitis; Z95.0 Presence of cardiac pacemaker; Z98.84 Bariatric surgery status; E03.9 Hypothyroidism, unspecified; Z88.0 Allergy status to penicillin; Z88.5 Allergy status to narcotic agent; Z91.018 Allergy to other foods; Z91.013 Allergy to seafood; Z88.8 Allergy status to other drugs, medicaments and biological substances; Z79.899 Other long term (current) drug therapy; Z79.82 Long term (current) use of aspirin
CPT/HCPCS: 71046; 71275; 80048; 80076; 82550; 82553; 82803; 83690; 83880; 84443; 84484; 85025; 85379; 87631; 93005; 93041; 94760; 96374; 96375; 99285; J0360; J1170; J1885; Q9967

== ENCOUNTER 2023-07-26 16:08 | Emergency (ER) | payer OTHER, MEDICAID ==
[~2023-07-26] VITALS: Ht 167.6 cm; Wt 95.5 kg
[2023-07-26] MEDS ORDERED: NITROGLYCERIN 0.4MG SUBL TABLET SL STA (16:44)
[2023-07-26 17:48] LABS: BASO # 0.1 10^3/uL (0.0-0.2); BASO % 0.8 % (0.0-1.0); EOS % 0.3 % (0.0-3.0); HEMATOCRIT 41.6 % (36.0-47.0); HEMOGLOBIN 13.5 g/dl (12.0-15.5); LYMPH # 2.4 10^3/uL (1.5-5.0); LYMPH % 27.5 % (24.0-44.0); MEAN CORPUSCULAR HEMOGLOBIN 26.8 pg (27.0-33.0); MEAN CORPUSCULAR HGB CONC 32.5 g/dl (32.0-36.5); MEAN CORPUSCULAR VOLUME 82.5 fl (80.0-96.0); MONO # 0.4 10^3/uL (0.0-0.8); MONO % 4.8 % (2.0-8.0); NEUTROPHILS # 5.9 10^3/uL (1.5-8.5); NEUTROPHILS % 66.4 % (36.0-66.0); PLATELET COUNT, AUTOMATED 227 10^3/uL (150-450); RED BLOOD COUNT 5.04 10^6/uL (4.00-5.40); WHITE BLOOD COUNT 8.8 10^3/uL (4.0-10.0)
[2023-07-26 18:05] LABS: INR 0.95; PROTHROMBIN TIME 12.4 SECONDS (12.5-14.5)
[2023-07-26 18:06] LABS: CK-MB VALUE MASS < 1.0 NG/ML (<3.6); HCG, SERUM QUALITATIVE NEGATIVE (NEGATIVE); PARTIAL THROMBOPLASTIN TIME 26.4 SECONDS (24.8-34.2)
[2023-07-26 18:07] LABS: BLOOD UREA NITROGEN 16 MG/DL (9-23); CALCIUM LEVEL 8.7 MG/DL (8.5-10.1); CARBON DIOXIDE LEVEL 27 MMOL/L (20-31); CHLORIDE LEVEL 102 MMOL/L (98-107); CREATININE FOR GFR 1.12 MG/DL (0.55-1.30); GLUCOSE, FASTING 110 MG/DL (60-100); SODIUM LEVEL 135 MMOL/L (136-145)
[2023-07-26 18:08] LABS: CPK CREATINE PHOSPHOKINASE 41 U/L (34-145); MB/CK RELATIVE INDEX 2.43 (< OR =4)
[2023-07-26] MEDS ORDERED: ACETAMINOPHEN TAB 650MG DOSE (2X325MG) PO ONE (18:30)
[2023-07-26] MEDS: NS 500 ML IV ONE (18:43)
[2023-07-26 19:02] LABS: LIPASE 38 U/L (12-53)
[2023-07-26 19:04] LABS: ALBUMIN 3.7 G/DL (3.2-5.2); ALKALINE PHOSPHATASE 123 U/L (46-116); ALT/SGPT 19 U/L (7.0-40); AST/SGOT 9 U/L (<34); BILIRUBIN,DIRECT < 0.1 MG/DL (<0.4); BILIRUBIN,TOTAL 0.2 MG/DL (0.3-1.2)
[2023-07-26 19:07] LABS: FREE T4 0.73 NG/DL (0.89-1.76); THYROID STIMULATING HORMONE 1.865 uIU/ML (0.55-4.78)
[2023-07-26] MEDS ORDERED: ISOVUE-370 76% 100ML VIAL As Ordered ONE (19:15)
[2023-07-26] MEDS: KETOROLAC 30 MG/ML 1ML VIAL IV ONE (20:00)
[2023-07-26 20:04] LABS: CK-MB VALUE MASS < 1.0 NG/ML (<3.6)
[2023-07-26 20:05] LABS: CPK CREATINE PHOSPHOKINASE 38 U/L (34-145); MB/CK RELATIVE INDEX 2.63 (< OR =4)
[2023-07-26 20:45] VITALS: BP 112/70; TEMP 98.1
[2023-07-26 20:48] VITALS: O2SAT 100
[2023-07-26] MEDS ORDERED: IBUP-1022 PO (20:49)
[2023-07-26] MEDS ORDERED: TRAM50TA2 PO (21:01)
== END 2023-07-26 21:20 | disposition home or self-care (01) ==
LOC: EDBD 16:08 → M ED 16:08
DX: R07.89 Other chest pain (principal); R55 Syncope and collapse; M94.0 Chondrocostal junction syndrome [Tietze]; I95.9 Hypotension, unspecified; I10 Essential (primary) hypertension; E78.5 Hyperlipidemia, unspecified; K21.9 Gastro-esophageal reflux disease without esophagitis; F43.10 Post-traumatic stress disorder, unspecified; F41.9 Anxiety disorder, unspecified; F32.A Depression, unspecified; M79.7 Fibromyalgia; Z98.84 Bariatric surgery status; Z95.0 Presence of cardiac pacemaker; Z87.891 Personal history of nicotine dependence; Z79.82 Long term (current) use of aspirin; Z79.899 Other long term (current) drug therapy; Z88.0 Allergy status to penicillin; Z88.5 Allergy status to narcotic agent; Z88.8 Allergy status to other drugs, medicaments and biological substances; Z91.013 Allergy to seafood; Z91.018 Allergy to other foods
CPT/HCPCS: 70450; 71045; 71275; 72125; 80048; 80076; 82550; 82553; 83690; 84439; 84443; 84484; 84703; 85025; 85610; 85730; 87040; 93005; 93041; 94760; 96361; 96374; 99285; J1885; Q9967

== ENCOUNTER 2023-08-25 15:19 | Emergency (ER) | payer OTHER, MEDICAID ==
[~2023-08-25] VITALS: Ht 167.6 cm; Wt 97.0 kg
[~2023-08-25 15:19] MED LIST changes: +IBUP-1022 PO; +RISP-106; -RISP-9
[2023-08-25] MEDS: KETOROLAC 30 MG/ML 1ML VIAL IV ONE ×2 (16:10→19:37)
[2023-08-25 16:20] LABS: BASO # 0.1 10^3/uL (0.0-0.2); BASO % 1.3 % (0.0-1.0); EOS # 0.1 10^3/uL (0.0-0.5); EOS % 2.6 % (0.0-3.0); HEMATOCRIT 39.5 % (36.0-47.0); HEMOGLOBIN 12.7 g/dl (12.0-15.5); LYMPH # 2.2 10^3/uL (1.5-5.0); LYMPH % 46.6 % (24.0-44.0); MEAN CORPUSCULAR HEMOGLOBIN 26.8 pg (27.0-33.0); MEAN CORPUSCULAR HGB CONC 32.2 g/dl (32.0-36.5); MEAN CORPUSCULAR VOLUME 83.5 fl (80.0-96.0); MONO # 0.3 10^3/uL (0.0-0.8); MONO % 6.8 % (2.0-8.0); NEUTROPHILS % 42.5 % (36.0-66.0); PLATELET COUNT, AUTOMATED 207 10^3/uL (150-450); RED BLOOD COUNT 4.73 10^6/uL (4.00-5.40); WHITE BLOOD COUNT 4.7 10^3/uL (4.0-10.0)
[2023-08-25 16:44] LABS: LIPASE 24 U/L (12-53)
[2023-08-25 16:45] LABS: ALBUMIN 3.4 G/DL (3.2-5.2); ALKALINE PHOSPHATASE 97 U/L (46-116); ALT/SGPT 15 U/L (7.0-40); AST/SGOT 21 U/L (<34); BILIRUBIN,DIRECT < 0.1 MG/DL (<0.4); BILIRUBIN,TOTAL 0.3 MG/DL (0.3-1.2); BLOOD UREA NITROGEN 11 MG/DL (9-23); CALCIUM LEVEL 8.6 MG/DL (8.5-10.1); CARBON DIOXIDE LEVEL 29 MMOL/L (20-31); CHLORIDE LEVEL 108 MMOL/L (98-107); GLOMERULAR FILTRATION RATE > 60.0 (>58); GLUCOSE, FASTING 92 MG/DL (60-100); POTASSIUM SERUM 4.9 MMOL/L (3.5-5.1); SODIUM LEVEL 142 MMOL/L (136-145); TOTAL PROTEIN 6.4 G/DL (5.7-8.2)
[2023-08-25] MEDS ORDERED: ONDA4TAB6 PO (17:46)
[2023-08-25] MEDS: ONDANSETRON 4MG 2ML VIAL IV STA (17:59)
[2023-08-25] MEDS: NS 1,000 ML IV ONE (19:22)
[2023-08-25 20:34] VITALS: BP 181/84; TEMP 98; O2SAT 98
== END 2023-08-25 20:45 | disposition home or self-care (01) ==
LOC: M ED 15:19 → EDBD 15:19 → M ED 20:45
DX: R11.2 Nausea with vomiting, unspecified (principal); B34.9 Viral infection, unspecified; F43.10 Post-traumatic stress disorder, unspecified; Z87.891 Personal history of nicotine dependence; Z88.8 Allergy status to other drugs, medicaments and biological substances; Z88.0 Allergy status to penicillin; Z91.013 Allergy to seafood; Z91.018 Allergy to other foods; Z79.899 Other long term (current) drug therapy; Z79.1 Long term (current) use of non-steroidal anti-inflammatories (NSAID)
CPT/HCPCS: 74176; 80048; 80076; 81001; 83605; 83690; 85025; 87086; 93041; 96374; 96375; 96376; 99284; J1885; J2405

== ENCOUNTER 2023-09-21 15:16 | Observation (INO) | payer OTHER, MEDICAID ==
[~2023-09-21] VITALS: Ht 167.6 cm; Wt 95.2 kg
[~2023-09-21 15:16] MED LIST changes: +CETI-24 PO; +CHLO125TA PO; +DOCU100C16 PO; +METO25TA4 PO
[2023-09-21 16:10] VITALS: BP 148/98; TEMP 97.9; O2SAT 98
[2023-09-21] MEDS ORDERED: PILL CUTTER 1 EACH XX PRN (19:30)
[2023-09-21] MEDS ORDERED: HOME MED LIST COMPLETE! XX SCH (19:55)
[2023-09-21 20:04] VITALS: BP 165/107; TEMP 97.9; O2SAT 97
[2023-09-21 21:00] VITALS: BP 165/107; TEMP 97.7; O2SAT 95
[2023-09-21] MEDS: clonazePAM 1 MG TAB PO SCH (21:31)
[2023-09-21] MEDS: OMEPRAZOLE 20MG CAP PO SCH (21:31)
[2023-09-21] MEDS: SERTRALINE 100 MG TAB PO SCH (21:31)
[2023-09-21] MEDS: ASPIRIN 81MG ENTERIC TABLET PO SCH (21:31)
[2023-09-21] MEDS: ATORVASTATIN 20 MG TAB PO SCH (21:31)
[2023-09-21] MEDS: METOPROLOL TART 12.5 MG PER 1/2 TAB PO SCH (21:32)
[2023-09-21] MEDS: TOPIRAMATE (TopAMAX) 25 MG TAB PO SCH (21:37)
[2023-09-21] MEDS: LURASIDONE HCL 40MG TAB (LATUDA) PO SCH (21:38)
[2023-09-21] MEDS: traMADol 50 MG TAB PO PRN (21:48)
[2023-09-22 06:00] VITALS: BP 133/81; TEMP 97.7; O2SAT 98
[2023-09-22] MEDS: LEVOTHYROXINE 25MCG TABLET (0.025MG) PO SCH (06:22)
[2023-09-22 06:32] VITALS: BP 155/106; TEMP 97.5; O2SAT 98
[2023-09-22 06:53] LABS: HEMATOCRIT 40.9 % (36.0-47.0); HEMOGLOBIN 13.4 g/dl (12.0-15.5); MEAN CORPUSCULAR HEMOGLOBIN 26.7 pg (27.0-33.0); MEAN CORPUSCULAR HGB CONC 32.8 g/dl (32.0-36.5); MEAN CORPUSCULAR VOLUME 81.6 fl (80.0-96.0); PLATELET COUNT, AUTOMATED 236 10^3/uL (150-450); RED BLOOD COUNT 5.01 10^6/uL (4.00-5.40); WHITE BLOOD COUNT 7.4 10^3/uL (4.0-10.0)
[2023-09-22 07:11] LABS: BLOOD UREA NITROGEN 14 MG/DL (9-23); CARBON DIOXIDE LEVEL 26 MMOL/L (20-31); CHLORIDE LEVEL 105 MMOL/L (98-107); GLOMERULAR FILTRATION RATE > 60.0 (>58); GLUCOSE, FASTING 100 MG/DL (60-100); POTASSIUM SERUM 3.4 MMOL/L (3.5-5.1); SODIUM LEVEL 141 MMOL/L (136-145)
[2023-09-22] MEDS: amLODIPine 5 MG TAB PO SCH (09:55)
[2023-09-22] MEDS: ENOXAPARIN 40MG/0.4ML SYRINGE (J1650 PER 10MG) SC SCH (09:56)
[2023-09-22 11:08] VITALS: BP_SYST 138; BP_SYST 147; BP_SYST 152; BP_DIAS 103; BP_DIAS 93
[2023-09-22] MEDS: METOPROLOL TART 25 MG TABLET PO ONE (12:17)
[2023-09-22] MEDS: NYSTATIN 100,000 UNITS/GM TOPICAL PWD 15GM TOP SCH (12:17)
[2023-09-22] MEDS: POTASSIUM CHLORIDE 10MEQ SR TABLET PO ONE (12:17)
[2023-09-22 14:00] VITALS: BP 106/63; TEMP 98.1; O2SAT 98
[2023-09-22 19:50] VITALS: BP 110/63; TEMP 98.1; O2SAT 94
[2023-09-22] MEDS: METOPROLOL TART 25 MG TABLET PO SCH (20:12)
[2023-09-23 05:50] VITALS: BP 103/63; TEMP 97.9; O2SAT 96
[2023-09-23 06:37] LABS: BLOOD UREA NITROGEN 17 MG/DL (9-23); CALCIUM LEVEL 9.2 MG/DL (8.5-10.1); CARBON DIOXIDE LEVEL 25 MMOL/L (20-31); CHLORIDE LEVEL 106 MMOL/L (98-107); CREATININE FOR GFR 0.96 MG/DL (0.55-1.30); GLOMERULAR FILTRATION RATE > 60.0 (>58); GLUCOSE, FASTING 87 MG/DL (60-100); POTASSIUM SERUM 3.6 MMOL/L (3.5-5.1); SODIUM LEVEL 139 MMOL/L (136-145)
[2023-09-23 08:42] VITALS: BP 134/77
[2023-09-23] MEDS ORDERED: TRAM25TA2 PO (12:20)
[2023-09-23 14:00] VITALS: BP 107/72; TEMP 97.9; O2SAT 99
[2023-09-27] MEDS ORDERED: LEVO25TA5 PO (10:49)
[2023-09-27] MEDS ORDERED: LATU40TA2 PO (10:49)
[2023-09-27] MEDS ORDERED: TOPA1TAB PO (10:49)
[2023-09-27] MEDS ORDERED: ZOLO100T PO (10:49)
[2023-09-27] MEDS ORDERED: FAMO20TA PO (10:49)
[2023-09-27] MEDS ORDERED: ASPI81TAEC PO (10:49)
[2023-09-27] MEDS ORDERED: NYST10006 TOP (10:49)
[2023-09-27] MEDS ORDERED: OMEP-173 PO (10:49)
[2023-09-27] MEDS ORDERED: CLON0.5T2 PO (10:49)
[2023-09-27] MEDS ORDERED: METO1TAB87 PO (10:49)
[2023-09-27] MEDS ORDERED: AMLO1TAB24 PO (10:49)
[2023-09-27] MEDS ORDERED: ATOR1TAB21 PO (10:49)
[2023-09-27] MEDS ORDERED: TOPA50TA8 PO (12:47)
[2023-09-27] MEDS ORDERED: LATU80TA2 PO (12:48)
== END 2023-09-23 15:01 ==
LOC: M MSPAV 16:10
PROVIDERS: ADMIT Internal Medicine; ATTEND Internal Medicine
DX: R55 Syncope and collapse (principal); R29.6 Repeated falls; G90.A Postural orthostatic tachycardia syndrome [POTS]; F31.9 Bipolar disorder, unspecified; F43.10 Post-traumatic stress disorder, unspecified; M32.9 Systemic lupus erythematosus, unspecified; E03.9 Hypothyroidism, unspecified; K21.9 Gastro-esophageal reflux disease without esophagitis; I49.5 Sick sinus syndrome; Z95.0 Presence of cardiac pacemaker; I10 Essential (primary) hypertension; R45.851 Suicidal ideations; I25.10 Atherosclerotic heart disease of native coronary artery without angina pectoris; I25.2 Old myocardial infarction; G89.29 Other chronic pain; F44.5 Conversion disorder with seizures or convulsions; Z90.49 Acquired absence of other specified parts of digestive tract; Z98.84 Bariatric surgery status; Z98.51 Tubal ligation status; Z88.8 Allergy status to other drugs, medicaments and biological substances; Z88.5 Allergy status to narcotic agent; Z88.0 Allergy status to penicillin; Z91.013 Allergy to seafood; Z91.018 Allergy to other foods; Z79.899 Other long term (current) drug therapy; Z79.82 Long term (current) use of aspirin; Z79.890 Hormone replacement therapy
CPT/HCPCS: 36415; 80048; 85027; 93306; 93880; 96372; 97161; 97165; 97530; G0378; J1650

== ENCOUNTER → 2023-11-17 | Outpatient (CLI) | payer OTHER, MEDICAID ==
[~2023-11-17] MED LIST changes: +FAMO20TA PO; +FLUO-365; -FLUO20CA22; +LATU40TA2 PO; +ONDA-282; +ONDA-282 PO; -ONDA4TAB6; -ONDA4TAB6 PO; +TRAM25TA2 PO
== END ==
LOC: M RAD 15:55
PROVIDERS: ATTEND Physician Assistant Medical
DX: M54.9 Dorsalgia, unspecified (principal)

== ENCOUNTER → 2023-12-14 | Outpatient (CLI) | payer OTHER, MEDICAID | LOC: M PLALAB 13:27 | PROVIDERS: ATTEND Physician Assistant Medical | DX: M25.561 Pain in right knee (principal); M25.562 Pain in left knee ==

== ENCOUNTER 2024-01-01 05:24 | Emergency (ER) | payer OTHER, MEDICAID ==
[~2024-01-01] VITALS: Ht 167.6 cm; Wt 95.5 kg
[2024-01-01 06:29] LABS: BASO # 0.1 10^3/uL (0.0-0.2); EOS # 0.1 10^3/uL (0.0-0.5); EOS % 1.6 % (0.0-3.0); HEMATOCRIT 36.7 % (36.0-47.0); HEMOGLOBIN 11.9 g/dl (12.0-15.5); LYMPH # 2.7 10^3/uL (1.5-5.0); LYMPH % 40.2 % (24.0-44.0); MEAN CORPUSCULAR HEMOGLOBIN 26.1 pg (27.0-33.0); MEAN CORPUSCULAR HGB CONC 32.4 g/dl (32.0-36.5); MEAN CORPUSCULAR VOLUME 80.5 fl (80.0-96.0); MONO # 0.4 10^3/uL (0.0-0.8); MONO % 5.9 % (2.0-8.0); NEUTROPHILS # 3.5 10^3/uL (1.5-8.5); NEUTROPHILS % 51.2 % (36.0-66.0); PLATELET COUNT, AUTOMATED 201 10^3/uL (150-450); RED BLOOD COUNT 4.56 10^6/uL (4.00-5.40); WHITE BLOOD COUNT 6.8 10^3/uL (4.0-10.0)
[2024-01-01 06:30] LABS: LIPASE 46 U/L (12-53)
[2024-01-01 06:31] LABS: CK-MB VALUE MASS < 1.0 NG/ML (<3.6)
[2024-01-01 06:32] LABS: ALBUMIN 3.5 G/DL (3.2-5.2); ALKALINE PHOSPHATASE 91 U/L (46-116); ALT/SGPT 19 U/L (7.0-40); AST/SGOT 17 U/L (<34); BILIRUBIN,DIRECT 0.1 MG/DL (<0.4); BILIRUBIN,TOTAL 0.4 MG/DL (0.3-1.2); BLOOD UREA NITROGEN 16 MG/DL (9-23); CALCIUM LEVEL 9.4 MG/DL (8.5-10.1); CARBON DIOXIDE LEVEL 25 MMOL/L (20-31); CHLORIDE LEVEL 110 MMOL/L (98-107); CREATININE FOR GFR 0.95 MG/DL (0.55-1.30); GLOMERULAR FILTRATION RATE > 60.0 (>58); GLUCOSE, FASTING 85 MG/DL (60-100); POTASSIUM SERUM 3.9 MMOL/L (3.5-5.1); SODIUM LEVEL 141 MMOL/L (136-145); TOTAL PROTEIN 6.4 G/DL (5.7-8.2)
[2024-01-01 06:37] LABS: CPK CREATINE PHOSPHOKINASE 84 U/L (34-145); MB/CK RELATIVE INDEX 1.19 (< OR =4)
[2024-01-01] MEDS: NS 1,000 ML IV ONE (07:42)
[2024-01-01] MEDS: HYDROMORPHONE HCL 0.5 MG/ 0.5 ML SYRINGE IV ONE (07:42)
[2024-01-01 08:13] LABS: CK-MB VALUE MASS < 1.0 NG/ML (<3.6)
[2024-01-01 08:15] LABS: CPK CREATINE PHOSPHOKINASE 62 U/L (34-145); MB/CK RELATIVE INDEX 1.61 (< OR =4)
[2024-01-01 08:45] VITALS: BP 116/66; TEMP 97.8; O2SAT 100
== END 2024-01-01 08:52 | disposition home or self-care (01) ==
LOC: M ED 05:24
DX: G90.A Postural orthostatic tachycardia syndrome [POTS] (principal); R55 Syncope and collapse; R07.89 Other chest pain; R94.31 Abnormal electrocardiogram [ECG] [EKG]; I10 Essential (primary) hypertension; E03.9 Hypothyroidism, unspecified; F43.10 Post-traumatic stress disorder, unspecified; K21.9 Gastro-esophageal reflux disease without esophagitis; Z88.0 Allergy status to penicillin; Z88.5 Allergy status to narcotic agent; Z91.018 Allergy to other foods; Z91.013 Allergy to seafood; Z79.1 Long term (current) use of non-steroidal anti-inflammatories (NSAID); Z79.899 Other long term (current) drug therapy
CPT/HCPCS: 71045; 80053; 82248; 82550; 82553; 83690; 84484; 85025; 93005; 93041; 94760; 96361; 96374; 99285; J1170

== ENCOUNTER 2024-01-03 20:13 | Emergency (ER) | payer OTHER, MEDICAID ==
[~2024-01-03] VITALS: Ht 167.6 cm; Wt 94.5 kg
[2024-01-03 21:15] LABS: BASO # 0.1 10^3/uL (0.0-0.2); BASO % 0.8 % (0.0-1.0); EOS # 0.2 10^3/uL (0.0-0.5); EOS % 1.9 % (0.0-3.0); HEMATOCRIT 37.6 % (36.0-47.0); LYMPH # 3.4 10^3/uL (1.5-5.0); LYMPH % 38.5 % (24.0-44.0); MEAN CORPUSCULAR HGB CONC 31.9 g/dl (32.0-36.5); MEAN CORPUSCULAR VOLUME 81.4 fl (80.0-96.0); MONO # 0.6 10^3/uL (0.0-0.8); MONO % 6.2 % (2.0-8.0); NEUTROPHILS # 4.6 10^3/uL (1.5-8.5); NEUTROPHILS % 52.4 % (36.0-66.0); PLATELET COUNT, AUTOMATED 248 10^3/uL (150-450); RED BLOOD COUNT 4.62 10^6/uL (4.00-5.40); WHITE BLOOD COUNT 8.8 10^3/uL (4.0-10.0)
[2024-01-03 21:34] LABS: CK-MB VALUE MASS < 1.0 NG/ML (<3.6)
[2024-01-03 21:35] LABS: CPK CREATINE PHOSPHOKINASE 60 U/L (34-145); MB/CK RELATIVE INDEX 1.66 (< OR =4)
[2024-01-03 21:36] LABS: BLOOD UREA NITROGEN 14 MG/DL (9-23); CALCIUM LEVEL 8.6 MG/DL (8.5-10.1); CARBON DIOXIDE LEVEL 22 MMOL/L (20-31); CHLORIDE LEVEL 116 MMOL/L (98-107); CREATININE FOR GFR 0.96 MG/DL (0.55-1.30); GLOMERULAR FILTRATION RATE > 60.0 (>58); GLUCOSE, FASTING 79 MG/DL (60-100); POTASSIUM SERUM 3.6 MMOL/L (3.5-5.1); SODIUM LEVEL 143 MMOL/L (136-145)
[2024-01-03] MEDS ORDERED: ISOVUE-370 76% 100ML VIAL As Ordered ONE (21:49)
[2024-01-03] MEDS: KETOROLAC 30 MG/ML 1ML VIAL IV ONE (22:10)
[2024-01-03] MEDS: traMADol 50 MG TAB (HOME DOSE PACK) PO ONE (22:50)
[2024-01-03 23:15] VITALS: BP 114/66; TEMP 97.1; O2SAT 100
== END 2024-01-03 23:30 | disposition home or self-care (01) ==
LOC: M ED 20:13 → EDBD 20:13 → M ED 23:30
DX: R07.9 Chest pain, unspecified (principal); I25.2 Old myocardial infarction; I10 Essential (primary) hypertension; E78.5 Hyperlipidemia, unspecified; J45.909 Unspecified asthma, uncomplicated; F12.10 Cannabis abuse, uncomplicated; Z88.0 Allergy status to penicillin; Z88.5 Allergy status to narcotic agent; Z88.8 Allergy status to other drugs, medicaments and biological substances; Z91.013 Allergy to seafood; Z79.1 Long term (current) use of non-steroidal anti-inflammatories (NSAID); Z79.899 Other long term (current) drug therapy
CPT/HCPCS: 71045; 71275; 80048; 82550; 82553; 84484; 85025; 93005; 93041; 94760; 96374; 99285; J1885; Q9967

== ENCOUNTER → 2024-01-06 | Outpatient (CLI) | payer OTHER, MEDICAID ==
[~2024-01-06] MED LIST changes: +BUTA-198 PO; +NYST1POW9 TOP; +TIZA2TA PO
== END ==
LOC: M PAIN 13:00
PROVIDERS: ATTEND Nurse Practitioner Family
DX: M54.16 Radiculopathy, lumbar region (principal); F31.9 Bipolar disorder, unspecified; F41.9 Anxiety disorder, unspecified; F43.10 Post-traumatic stress disorder, unspecified; M79.7 Fibromyalgia; E03.9 Hypothyroidism, unspecified; L98.9 Disorder of the skin and subcutaneous tissue, unspecified; Z79.899 Other long term (current) drug therapy; Z88.0 Allergy status to penicillin; Z88.5 Allergy status to narcotic agent; Z91.018 Allergy to other foods

== ENCOUNTER 2024-01-12 04:17 | Observation (INO) | payer OTHER, MEDICAID ==
[~2024-01-12] VITALS: Ht 167.6 cm; Wt 96.2 kg
[~2024-01-12 04:17] MED LIST changes: -BUTA-198 PO; -NYST1POW9 TOP; -TIZA2TA PO
[2024-01-12 05:15] LABS: BASO # 0.1 10^3/uL (0.0-0.2); BASO % 0.8 % (0.0-1.0); EOS # 0.3 10^3/uL (0.0-0.5); EOS % 3.3 % (0.0-3.0); HEMATOCRIT 38.5 % (36.0-47.0); HEMOGLOBIN 12.2 g/dl (12.0-15.5); LYMPH # 3.2 10^3/uL (1.5-5.0); MEAN CORPUSCULAR HGB CONC 31.7 g/dl (32.0-36.5); MEAN CORPUSCULAR VOLUME 81.9 fl (80.0-96.0); MONO # 0.4 10^3/uL (0.0-0.8); MONO % 5.8 % (2.0-8.0); NEUTROPHILS # 3.7 10^3/uL (1.5-8.5); PLATELET COUNT, AUTOMATED 211 10^3/uL (150-450); WHITE BLOOD COUNT 7.6 10^3/uL (4.0-10.0)
[2024-01-12] MEDS: diphenhydrAMINE 50MG/ML VIAL IV ONE (05:24)
[2024-01-12] MEDS: ACETAMINOPHEN *IV* 1,000 MG in IV 1 EA IV ONE (05:24)
[2024-01-12] MEDS: NS 1,000 ML IV ONE (05:25)
[2024-01-12] MEDS: fentaNYL 100 MCG/2 ML INJECTION IV ONE (05:25)
[2024-01-12] MEDS: METOCLOPRAMIDE INJ 10MG/2ML VIAL IV ONE (05:27)
[2024-01-12 05:35] LABS: INR 0.94; PARTIAL THROMBOPLASTIN TIME 26.5 SECONDS (24.8-34.2); PROTHROMBIN TIME 12.3 SECONDS (12.5-14.5)
[2024-01-12 05:37] LABS: CK-MB VALUE MASS < 1.0 NG/ML (<3.6)
[2024-01-12 05:38] LABS: BLOOD UREA NITROGEN 10 MG/DL (9-23); CALCIUM LEVEL 8.8 MG/DL (8.5-10.1); CARBON DIOXIDE LEVEL 22 MMOL/L (20-31); CHLORIDE LEVEL 109 MMOL/L (98-107); CPK CREATINE PHOSPHOKINASE 53 U/L (34-145); CREATININE FOR GFR 0.91 MG/DL (0.55-1.30); GLOMERULAR FILTRATION RATE > 60.0 (>58); GLUCOSE, FASTING 99 MG/DL (60-100); MB/CK RELATIVE INDEX 1.88 (< OR =4); POTASSIUM SERUM 3.8 MMOL/L (3.5-5.1); SODIUM LEVEL 139 MMOL/L (136-145)
[2024-01-12] MEDS: LEVOTHYROXINE 25MCG TABLET (0.025MG) PO SCH (06:00)
[2024-01-12] MEDS: KETOROLAC 30 MG/ML 1ML VIAL IV ONE (07:21)
[2024-01-12] MEDS ORDERED: ISOVUE-370 76% 100ML VIAL As Ordered ONE (07:33)
[2024-01-12] MEDS ORDERED: ATOR80TA59 PO (08:30)
[2024-01-12] MEDS ORDERED: LEVO25TA5 PO (08:30)
[2024-01-12] MEDS ORDERED: TIZA2TA PO (08:43)
[2024-01-12] MEDS ORDERED: NYST1POW9 TOP (08:43)
[2024-01-12] MEDS ORDERED: OMEP-173 PO (08:43)
[2024-01-12] MEDS ORDERED: HOME MED LIST COMPLETE! XX SCH (08:45)
[2024-01-12] MEDS: fentaNYL 100 MCG/2 ML INJECTION IV PRN (09:30)
[2024-01-12] MEDS ORDERED: MAALOX 30 ML SUSP *UDC PO PRN (12:30)
[2024-01-12] MEDS ORDERED: MOM 30ML SUSPENSION UDC PO PRN (12:30)
[2024-01-12] MEDS: ASPIRIN 81MG ENTERIC TABLET PO SCH (12:56)
[2024-01-12 14:23] LABS: FREE T4 0.84 NG/DL (0.89-1.76); THYROXINE (T4) 3.8 UG/DL (4.5-10.9)
[2024-01-12 14:28] LABS: VITAMIN B12 LEVEL 243 PG/ML (211-911)
[2024-01-12] MEDS: CETIRIZINE (ZyrTEC) 10 MG TAB PO SCH (15:00)
[2024-01-12] MEDS: OMEPRAZOLE 20MG CAP PO SCH (15:00)
[2024-01-12] MEDS: amLODIPine 5 MG TAB PO SCH (15:01)
[2024-01-12 15:03] LABS: HEMOGLOBIN A1c 5.6 % (4.0-6.0)
[2024-01-12] MEDS ORDERED: PILL CUTTER 1 EACH XX PRN (15:05)
[2024-01-12] MEDS: ACETAMINOPHEN TAB 650MG DOSE (2X325MG) PO PRN (15:24)
[2024-01-12 16:38] VITALS: BP 145/84; TEMP 98.1; O2SAT 98
[2024-01-12] MEDS: FIORICET TAB PO PRN (18:07)
[2024-01-12] MEDS: LURASIDONE HCL 40MG TAB (LATUDA) PO SCH (19:19)
[2024-01-12 19:31] VITALS: BP 127/69; TEMP 98; O2SAT 95
[2024-01-12] MEDS: TOPIRAMATE (TopAMAX) 25 MG TAB PO SCH (20:00)
[2024-01-12] MEDS: SERTRALINE 100 MG TAB PO SCH (20:00)
[2024-01-12] MEDS: ATORVASTATIN 20 MG TAB PO SCH (20:00)
[2024-01-12 20:01] VITALS: BP 127/69
[2024-01-12] MEDS: METOPROLOL TART 25 MG TABLET PO SCH (20:01)
[2024-01-12] MEDS: tiZANidine 4 MG TAB PO SCH (20:02)
[2024-01-12] MEDS: NYSTATIN 100,000 UNITS/GM TOPICAL PWD 15GM TOP SCH (20:02)
[2024-01-12] MEDS ORDERED: ATORVASTATIN 20 MG TAB PO SCH (21:00)
[2024-01-12] MEDS ORDERED: ENTER DRUG NAME HERE (PATIENT'S OWN MED) PO SCH ×2 (21:00)
[2024-01-12 21:35] LABS: URINE PREG TEST NEGATIVE (NEGATIVE)
[2024-01-12 23:01] VITALS: BP 80/52; TEMP 98; O2SAT 98
[2024-01-12] MEDS: MIDODRINE 5 MG TAB PO ONE (23:22)
[2024-01-13] VITALS (7 sets, daily range): BP systolic 92–125; BP diastolic 57–62; TEMP 97.3–97.9; O2SAT 97–100
[2024-01-13 06:17] LABS: BLOOD UREA NITROGEN 13 MG/DL (9-23); CARBON DIOXIDE LEVEL 22 MMOL/L (20-31); CHLORIDE LEVEL 111 MMOL/L (98-107); CHOLESTEROL LEVEL 137 MG/DL (<200); CHOLESTEROL RISK RATIO 2.34 (<5); CREATININE FOR GFR 0.85 MG/DL (0.55-1.30); GLOMERULAR FILTRATION RATE > 60.0 (>58); GLUCOSE, FASTING 93 MG/DL (60-100); HDL CHOLESTEROL 58.5 MG/DL (>40); LDL CHOLESTEROL 67.7 MG/DL (<100); NON-HDL-C 78.5 MG/DL; POTASSIUM SERUM 5.8 MMOL/L (3.5-5.1); SODIUM LEVEL 138 MMOL/L (136-145); TRIGLYCERIDES LEVEL 54 MG/DL (<150)
[2024-01-13] MEDS ORDERED: HumuLIN R (REGULAR) INSULIN (NovoLIN R) **100U/ML** PER UNIT IV STA ×2 (07:10→07:53)
[2024-01-13] MEDS: DEXTROSE 50% 50ML SYRINGE IV STA (08:24)
[2024-01-13] MEDS: HumuLIN R (REGULAR) INSULIN (NovoLIN R) **100U/ML** PER UNIT IV STA (08:25)
[2024-01-13] MEDS: ENOXAPARIN 40MG/0.4ML SYRINGE (J1650 PER 10MG) SC SCH (08:25)
[2024-01-13] MEDS ORDERED: ENOXAPARIN 30MG/0.3ML SYRINGE (J1650 PER 10MG) SC SCH (09:00)
[2024-01-13] MEDS ORDERED: ASPIRIN 300 MG SUPP PR SCH (09:00)
[2024-01-13] MEDS: SOD POLYSTYRENE SULFONATE SUSP 15GM 60ML UD PO ONE (09:16)
[2024-01-13] MEDS ORDERED: NS 1,000 ML IV SCH (11:00)
[2024-01-13] MEDS: traMADol 50 MG TAB PO PRN (12:48)
[2024-01-13 14:37] LABS: BLOOD UREA NITROGEN 11 MG/DL (9-23); CALCIUM LEVEL 8.9 MG/DL (8.5-10.1); CARBON DIOXIDE LEVEL 22 MMOL/L (20-31); CHLORIDE LEVEL 109 MMOL/L (98-107); GLOMERULAR FILTRATION RATE > 60.0 (>58); GLUCOSE, FASTING 107 MG/DL (60-100); POTASSIUM SERUM 4.2 MMOL/L (3.5-5.1); SODIUM LEVEL 139 MMOL/L (136-145)
[2024-01-13] MEDS ORDERED: LEVO25TA5 PO (15:08)
[2024-01-13] MEDS ORDERED: BUTA-198 PO ×2 (15:10→15:12)
[2024-01-15 15:07] LABS: VITAMIN D 1,25 DIHYDROXY 56.1 pg/mL (24.8-81.5)
== END 2024-01-13 16:40 | disposition home or self-care (01) ==
LOC: M ED 04:17 → M ED INP 12:27 → M PCU 16:24
PROVIDERS: ADMIT Student in an Organized Health Care Education/Training Program; ATTEND Student in an Organized Health Care Education/Training Program
DX: G44.59 Other complicated headache syndrome (principal); E87.5 Hyperkalemia; E03.9 Hypothyroidism, unspecified; R53.1 Weakness; R29.703 NIHSS score 3; G89.29 Other chronic pain; F31.9 Bipolar disorder, unspecified; F43.10 Post-traumatic stress disorder, unspecified; K21.9 Gastro-esophageal reflux disease without esophagitis; G90.A Postural orthostatic tachycardia syndrome [POTS]; Z95.0 Presence of cardiac pacemaker; I10 Essential (primary) hypertension; I25.2 Old myocardial infarction; E66.9 Obesity, unspecified; Z88.0 Allergy status to penicillin; R55 Syncope and collapse; M32.8 Other forms of systemic lupus erythematosus; Z98.84 Bariatric surgery status; Z90.49 Acquired absence of other specified parts of digestive tract; Z98.51 Tubal ligation status; Z88.5 Allergy status to narcotic agent; Z88.8 Allergy status to other drugs, medicaments and biological substances; Z91.018 Allergy to other foods; Z91.013 Allergy to seafood; Z79.899 Other long term (current) drug therapy; Z79.82 Long term (current) use of aspirin; Z79.890 Hormone replacement therapy
CPT/HCPCS: 36415; 70450; 70496; 70498; 71045; 80048; 80061; 81001; 82550; 82553; 82607; 82652; 83036; 83735; 84425; 84436; 84439; 84443; 84484; 84703; 85025; 85610; 85730; 93005; 93041; 94760; 96365; 96372; 96375; 96376; 97161; 99285; J0131; J1200; J1650; J1815; J1885; J2765; J3010; Q9967

== ENCOUNTER 2024-03-04 11:40 | Emergency (ER) | payer OTHER, MEDICAID ==
[~2024-03-04] VITALS: Ht 167.6 cm; Wt 94.5 kg
[~2024-03-04 11:40] MED LIST changes: +BUTA-198 PO; +NYST1POW9 TOP; +TIZA2TA PO
[2024-03-04 12:34] LABS: BASO # 0.1 10^3/uL (0.0-0.2); BASO % 1.2 % (0.0-1.0); EOS # 0.3 10^3/uL (0.0-0.5); EOS % 5.8 % (0.0-3.0); HEMATOCRIT 37.6 % (36.0-47.0); HEMOGLOBIN 11.5 g/dl (12.0-15.5); LYMPH # 1.5 10^3/uL (1.5-5.0); LYMPH % 34.3 % (24.0-44.0); MEAN CORPUSCULAR HEMOGLOBIN 25.1 pg (27.0-33.0); MEAN CORPUSCULAR HGB CONC 30.6 g/dl (32.0-36.5); MEAN CORPUSCULAR VOLUME 82.1 fl (80.0-96.0); MONO # 0.3 10^3/uL (0.0-0.8); MONO % 6.1 % (2.0-8.0); NEUTROPHILS # 2.2 10^3/uL (1.5-8.5); NEUTROPHILS % 52.4 % (36.0-66.0); PLATELET COUNT, AUTOMATED 204 10^3/uL (150-450); RED BLOOD COUNT 4.58 10^6/uL (4.00-5.40); WHITE BLOOD COUNT 4.3 10^3/uL (4.0-10.0)
[2024-03-04 12:47] LABS: INR 1.01; PARTIAL THROMBOPLASTIN TIME 27.6 SECONDS (24.8-34.2)
[2024-03-04 13:01] LABS: LIPASE 25 U/L (12-53)
[2024-03-04 13:03] LABS: ALBUMIN 3.4 G/DL (3.2-5.2); ALKALINE PHOSPHATASE 97 U/L (46-116); ALT/SGPT 19 U/L (7.0-40); AMYLASE 68 U/L (30-118); AST/SGOT < 8 U/L (<34); BILIRUBIN,DIRECT 0.2 MG/DL (<0.4); BILIRUBIN,TOTAL 0.6 MG/DL (0.3-1.2); BLOOD UREA NITROGEN 13 MG/DL (9-23); CALCIUM LEVEL 8.5 MG/DL (8.5-10.1); CARBON DIOXIDE LEVEL 26 MMOL/L (20-31); CHLORIDE LEVEL 109 MMOL/L (98-107); CREATININE FOR GFR 0.86 MG/DL (0.55-1.30); GLOMERULAR FILTRATION RATE > 60.0 (>51); GLUCOSE, FASTING 91 MG/DL (60-100); POTASSIUM SERUM 3.7 MMOL/L (3.5-5.1); SODIUM LEVEL 140 MMOL/L (136-145); TOTAL PROTEIN 6.5 G/DL (5.7-8.2)
[2024-03-04] MEDS: NS 500 ML IV ONE (18:12)
[2024-03-04] MEDS: ONDANSETRON 4MG 2ML VIAL IV ONE (18:13)
[2024-03-04] MEDS: ACETAMINOPHEN *IV* 1,000 MG in IV 1 EA IV ONE (18:13)
[2024-03-04 18:24] VITALS: TEMP 97.2
[2024-03-04] MEDS ORDERED: ISOVUE-370 76% 100ML VIAL As Ordered ONE (18:24)
[2024-03-04] MEDS: fentaNYL 100 MCG/2 ML INJECTION IV ONE (19:45)
[2024-03-04 21:19] VITALS: BP 132/69; O2SAT 98
== END 2024-03-04 21:21 | disposition home or self-care (01) ==
LOC: EDBD 11:40 → M ED 11:40
DX: R10.31 Right lower quadrant pain (principal); I10 Essential (primary) hypertension; K21.9 Gastro-esophageal reflux disease without esophagitis; E78.5 Hyperlipidemia, unspecified; J45.909 Unspecified asthma, uncomplicated; G40.909 Epilepsy, unspecified, not intractable, without status epilepticus; F12.10 Cannabis abuse, uncomplicated; Z88.0 Allergy status to penicillin; Z88.5 Allergy status to narcotic agent; Z91.013 Allergy to seafood; Z91.018 Allergy to other foods; Z79.1 Long term (current) use of non-steroidal anti-inflammatories (NSAID); Z79.899 Other long term (current) drug therapy
CPT/HCPCS: 74177; 76830; 76856; 80048; 80076; 81001; 82150; 83605; 83690; 85025; 85610; 85730; 87086; 93976; 96365; 96366; 96374; 96375; 99284; J0131; J2405; J3010; Q9967

== ENCOUNTER 2024-08-01 12:46 | Emergency (ER) | payer OTHER, MEDICAID ==
[~2024-08-01] VITALS: Ht 167.6 cm; Wt 95.9 kg
[~2024-08-01 12:46] MED LIST changes: +ATOR-398 PO; +GABA-1172 PO; -GABA-282 PO; -LIPI80TA PO; +NYST1POW3 TOP; -NYST1POW9 TOP
[2024-08-01] MEDS ORDERED: TRAM50TA2 (13:02)
[2024-08-01] MEDS ORDERED: OMEP40CA5 (13:02)
[2024-08-01] MEDS ORDERED: LEVO50TA5 (13:02)
[2024-08-01 13:57] LABS: BASO % 0.5 % (0.0-1.0); EOS # 0.1 10^3/uL (0.0-0.5); EOS % 0.6 % (0.0-3.0); HEMOGLOBIN 11.5 g/dl (12.0-15.5); LYMPH # 1.3 10^3/uL (1.5-5.0); LYMPH % 15.9 % (24.0-44.0); MEAN CORPUSCULAR HEMOGLOBIN 23.9 pg (27.0-33.0); MEAN CORPUSCULAR HGB CONC 30.3 g/dl (32.0-36.5); MEAN CORPUSCULAR VOLUME 78.8 fl (80.0-96.0); MONO # 0.5 10^3/uL (0.0-0.8); MONO % 6.6 % (2.0-8.0); NEUTROPHILS # 6.1 10^3/uL (1.5-8.5); NEUTROPHILS % 76.1 % (36.0-66.0); PLATELET COUNT, AUTOMATED 220 10^3/uL (150-450); RED BLOOD COUNT 4.82 10^6/uL (4.00-5.40)
[2024-08-01 14:13] LABS: ERYTHROCYTE SEDIMENTATION RATE 99 mm/hr (0-30)
[2024-08-01 14:23] LABS: BLOOD UREA NITROGEN 11 MG/DL (9-23); CALCIUM LEVEL 9.1 MG/DL (8.5-10.1); CARBON DIOXIDE LEVEL 23 MMOL/L (20-31); CHLORIDE LEVEL 106 MMOL/L (98-107); CREATININE FOR GFR 0.87 MG/DL (0.55-1.30); GLOMERULAR FILTRATION RATE > 60.0 (>51); GLUCOSE, FASTING 96 MG/DL (60-100); POTASSIUM SERUM 4.3 MMOL/L (3.5-5.1); SODIUM LEVEL 141 MMOL/L (136-145)
[2024-08-01] MEDS ORDERED: ISOVUE-370 76% 100ML VIAL As Ordered ONE (18:29)
[2024-08-01] MEDS: dexAMETHasone 20MG/5ML VIAL IV ONE (18:49)
[2024-08-01] MEDS: KETOROLAC 30 MG/ML 1ML VIAL IV ONE (18:50)
[2024-08-01] MEDS: metroNIDAZOLE 500 MG in IV 1 EA IV ONE (18:50)
[2024-08-01 19:27] LABS: C REACTIVE PROTEIN QUANTITATIV 5.02 MG/DL (<1.0)
[2024-08-01 19:39] LABS: PROCALCITONIN 0.16 ng/ml
[2024-08-01] MEDS: LevoFLOXacin IV 750 MG in IV 1 EA IV ONE (20:18)
[2024-08-01 20:49] VITALS: BP 177/77; TEMP 96.5
[2024-08-01] MEDS: fentaNYL 100 MCG/2 ML INJECTION IV ONE (21:12)
[2024-08-01 21:37] VITALS: O2SAT 96
[2024-08-01] MEDS ORDERED: LEVO1TAB39 PO (22:00)
[2024-08-01] MEDS: NORCO 5/325MG TABLET (HOME DOSE PACK) PO ONE (22:57)
== END 2024-08-01 22:56 | disposition home or self-care (01) ==
LOC: M ED 12:46
DX: L03.213 Periorbital cellulitis (principal); I10 Essential (primary) hypertension; F12.10 Cannabis abuse, uncomplicated; Z87.891 Personal history of nicotine dependence; Z88.0 Allergy status to penicillin; Z88.5 Allergy status to narcotic agent; Z91.013 Allergy to seafood; Z91.018 Allergy to other foods; Z79.1 Long term (current) use of non-steroidal anti-inflammatories (NSAID); Z79.899 Other long term (current) drug therapy
CPT/HCPCS: 70491; 80048; 84145; 85025; 85652; 86140; 93005; 96365; 96366; 96375; 99284; J1100; J1836; J1885; J1956; J3010; Q9967

== ENCOUNTER 2025-04-10 09:16 | Day surgery (SDC) | payer OTHER, MEDICAID ==
[~2025-04-10] VITALS: Ht 167.6 cm; Wt 93.9 kg
[~2025-04-10 09:16] MED LIST changes: +ERGO500029 PO; -IBUP-1022 PO; +IBUP600T42 PO; +LEVO1TAB39 PO; +LEVO50TA5 PO; +LIDOCAINE 2% 100 MG/5 ML SDV (FOR ANES.) As Ordered ONE; +METH-1164 PO; +OMEP40CA5 PO; +TOPI-257 PO; -TOPI100T9 PO; +TRAZ-252 PO
[2025-04-10 12:26] VITALS: BP 136/60; O2SAT 98
== END 2025-04-10 12:31 | disposition home or self-care (01) ==
LOC: M OPP 09:16
PROVIDERS: ATTEND Surgery
DX: K64.8 Other hemorrhoids (principal); K63.89 Other specified diseases of intestine; K64.4 Residual hemorrhoidal skin tags; K57.30 Diverticulosis of large intestine without perforation or abscess without bleeding; K62.5 Hemorrhage of anus and rectum; R10.13 Epigastric pain; Z98.84 Bariatric surgery status; Z95.0 Presence of cardiac pacemaker; Z88.0 Allergy status to penicillin; Z88.5 Allergy status to narcotic agent; Z88.8 Allergy status to other drugs, medicaments and biological substances; Z91.013 Allergy to seafood; Z91.018 Allergy to other foods; Z79.82 Long term (current) use of aspirin; Z79.891 Long term (current) use of opiate analgesic; Z79.899 Other long term (current) drug therapy; J45.909 Unspecified asthma, uncomplicated

== ENCOUNTER 2025-05-09 11:09 | Inpatient (IN) | payer OTHER, MEDICAID, MEDICARE ==
[~2025-05-09] VITALS: Ht 167.6 cm; Wt 105.9 kg
[2025-05-09] VITALS (14 sets, daily range): BP systolic 132–171; BP diastolic 63–88; TEMP 97.6–99.7; O2SAT 86–98
[~2025-05-09 11:09] MED LIST changes: -LIDOCAINE 2% 100 MG/5 ML SDV (FOR ANES.) As Ordered ONE
[2025-05-09] MEDS: ACETAMINOPHEN 500 MG TAB PO ONE (11:58)
[2025-05-09 12:03] LABS: PLATELET COUNT, AUTOMATED 156 10^3/uL (150-450)
[2025-05-09] MEDS ORDERED: LURA80TA PO (12:15)
[2025-05-09 12:19] LABS: INR 1.08
[2025-05-09] MEDS ORDERED: HOME MED LIST COMPLETE! XX SCH (12:20)
[2025-05-09 12:26] LABS: BASOPHILS 1 % (0-1); LYMPHOCYTES 5 % (16-44); MONOCYTES 4 % (0-5); NEUTROPHILS 82 % (28-66); PLATELET ESTIMATE NORMAL (NORMAL)
[2025-05-09 12:28] LABS: ABG BASE EXCESS -0.7 (-2.0-2.0); ABG HCO3 21.7 MMOL/L (22.0-26.0); ABG O2 SATURATION 91.7 % (95.0-99.0); ABG PARTIAL PRESSURE CO2 29.0 mmHg (35.0-45.0); ABG PARTIAL PRESSURE O2 59.8 mmHg (75.0-100.0); ABG STANDARD HCO3 23.8 MMOL/L. (22.0-26.0); ABG TOTAL CO2 22.6 MMOL/L (22.0-29.0); ABG pH (ARTERIAL) 7.492 UNITS (7.350-7.450)
[2025-05-09 12:35] LABS: CPK CREATINE PHOSPHOKINASE 159.0 U/L (34-145)
[2025-05-09 12:51] LABS: ALT/SGPT 27.0 U/L (7.0-40); AST/SGOT 21.0 U/L (<34); CALCIUM LEVEL 8.3 MG/DL (8.5-10.1); CARBON DIOXIDE LEVEL 23.0 MMOL/L (20-31); CHLORIDE LEVEL 98.0 MMOL/L (98-107); CK-MB VALUE MASS 1.0 NG/ML (<3.6); CREATININE FOR GFR 1.05 MG/DL (0.55-1.30); GLOMERULAR FILTRATION RATE 64.3 (>51); MB/CK RELATIVE INDEX 0.62 (< OR =4); POTASSIUM SERUM 2.5 MMOL/L (3.5-5.1); SODIUM LEVEL 135.0 MMOL/L (136-145)
[2025-05-09] MEDS: POTASSIUM CHLORIDE 10MEQ SR TABLET PO ONE ×2 (13:14→20:20)
[2025-05-09] MEDS: cefTRIAXone SOD 2 GM in DEXTROSE 5% (D5W) ADV/MINI-BAG 50 ML IV ONE (13:14)
[2025-05-09] MEDS: OSELTAMIVIR PHOSPHATE 75 MG CAP PO ONE (13:14)
[2025-05-09] MEDS: KCL 10MEQ/100ML SWI (KRUN) 10 MEQ in IV 1 EA IV ONE (13:52)
[2025-05-09] MEDS ORDERED: ISOVUE-370 76% 100 ML VIAL As Ordered ONE (14:10)
[2025-05-09] MEDS ORDERED: MOM 30 ML SUSPENSION UDC PO PRN (15:15)
[2025-05-09] MEDS: VANCOMYCIN HCL 1,750 MG, VIAL MATE ADAPTER 1 EACH in NS 500 ML IV ONE (16:11)
[2025-05-09] MEDS: LEVOTHYROXINE 50 MCG TABLET (0.05 MG) PO SCH (16:11)
[2025-05-09] MEDS: amLODIPine 5 MG TAB PO SCH (16:24)
[2025-05-09] MEDS: CETIRIZINE 10 MG TAB PO SCH (16:24)
[2025-05-09] MEDS: NS (Normal Saline) 0.9% 1,000 ML IV SCH (16:24)
[2025-05-09] MEDS: PANTOPRAZOLE 40MG VIAL IV SCH (16:24)
[2025-05-09] MEDS ORDERED: IPRATROPIUM 0.5 MG/ALBUTEROL 2.5 MG INH SOL UD 3 ML NEB PRN (16:25)
[2025-05-09] MEDS: LURASIDONE HCL 40 MG TAB PO SCH (18:00)
[2025-05-09 18:57] LABS: CALCIUM LEVEL 8.7 MG/DL (8.5-10.1); CARBON DIOXIDE LEVEL 24.0 MMOL/L (20-31); CHLORIDE LEVEL 100.0 MMOL/L (98-107); CREATININE FOR GFR 1.03 MG/DL (0.55-1.30); GLOMERULAR FILTRATION RATE 65.8 (>51); MAGNESIUM LEVEL 1.8 MG/DL (1.8-2.4); POTASSIUM SERUM 3.2 MMOL/L (3.5-5.1); SODIUM LEVEL 139.0 MMOL/L (136-145)
[2025-05-09] MEDS: IPRATROPIUM 0.5 MG/ALBUTEROL 2.5 MG INH SOL UD 3 ML NEB SCH (19:57)
[2025-05-09] MEDS: ATORVASTATIN 20 MG TAB PO SCH (20:20)
[2025-05-09] MEDS: ASPIRIN 81 MG ENTERIC TABLET PO SCH (20:21)
[2025-05-09] MEDS: OSELTAMIVIR PHOSPHATE 75 MG CAP PO SCH (20:21)
[2025-05-09] MEDS: traMADol 50 MG TAB PO SCH (20:23)
[2025-05-09] MEDS: DOXYCYCLINE HYCLATE 100 MG TABLET PO SCH (20:24)
[2025-05-09] MEDS ORDERED: SODIUM CHLORIDE HYPERTONIC 3% 4ML NEB SOL INH PRN (22:15)
[2025-05-09 22:36] LABS: ABG BASE EXCESS -2.0 (-2.0-2.0); ABG HCO3 21.0 MMOL/L (22.0-26.0); ABG O2 SATURATION 98.4 % (95.0-99.0); ABG PARTIAL PRESSURE CO2 30.4 mmHg (35.0-45.0); ABG PARTIAL PRESSURE O2 130.9 mmHg (75.0-100.0); ABG STANDARD HCO3 22.8 MMOL/L. (22.0-26.0); ABG TOTAL CO2 21.9 MMOL/L (22.0-29.0); ABG pH (ARTERIAL) 7.457 UNITS (7.350-7.450)
[2025-05-10] VITALS (29 sets, daily range): BP systolic 129–185; BP diastolic 68–90; TEMP 97–99.7; O2SAT 93–99
[2025-05-10] MEDS: ACETAMINOPHEN *IV* 1,000 MG in IV 1 EA IV ONE (03:55)
[2025-05-10 05:47] LABS: BASO # 0.1 10^3/uL (0.0-0.2); BASO % 0.4 % (0.0-1.0); EOS # 0.0 10^3/uL (0.0-0.5); EOS % 0.0 % (0.0-3.0); LYMPH # 0.7 10^3/uL (1.5-5.0); LYMPH % 6.0 % (24.0-44.0); MONO # 0.7 10^3/uL (0.0-0.8); MONO % 5.2 % (2.0-8.0); NEUTROPHILS # 10.9 10^3/uL (1.5-8.5); NEUTROPHILS % 87.8 % (36.0-66.0); PLATELET COUNT, AUTOMATED 187 10^3/uL (150-450)
[2025-05-10 06:13] LABS: CALCIUM LEVEL 8.6 MG/DL (8.5-10.1); CARBON DIOXIDE LEVEL 22.0 MMOL/L (20-31); CHLORIDE LEVEL 103.0 MMOL/L (98-107); CREATININE FOR GFR 0.82 MG/DL (0.55-1.30); GLOMERULAR FILTRATION RATE 86.6 (>51); MAGNESIUM LEVEL 1.8 MG/DL (1.8-2.4); POTASSIUM SERUM 3.4 MMOL/L (3.5-5.1); SODIUM LEVEL 138.0 MMOL/L (136-145)
[2025-05-10] MEDS ORDERED: VANCOMYCIN HCL 1,000 MG, VIAL MATE ADAPTER 1 EACH in NS 250 ML IV SCH (07:00)
[2025-05-10] MEDS: VANCOMYCIN HCL 2,000 MG, VIAL MATE ADAPTER 1 EACH in NS 500 ML IV ONE (08:44)
[2025-05-10] MEDS: POTASSIUM CHLORIDE 10MEQ SR TABLET PO ONE (08:49)
[2025-05-10] MEDS: ENOXAPARIN 40 MG/0.4 ML SYRINGE (J1650 PER 10MG) SC SCH (08:50)
[2025-05-10] MEDS: FUROSEMIDE 20 MG/2 ML VIAL IV ONE ×2 (10:28→23:14)
[2025-05-10] MEDS ORDERED: HYDROCORTISONE 100 MG/2 ML VIAL IV SCH (12:00)
[2025-05-10] MEDS ORDERED: cefTRIAXone SOD 1 GM in DEXTROSE 5% (D5W) ADV/MINI-BAG 50 ML IV SCH (13:00)
[2025-05-10] MEDS ORDERED: VANCOMYCIN HCL 1,250 MG, VIAL MATE ADAPTER 1 EACH in NS 250 ML IV SCH (20:00)
[2025-05-10] MEDS: cefTRIAXone SOD 2 GM in DEXTROSE 5% (D5W) ADV/MINI-BAG 50 ML IV SCH (20:20)
[2025-05-10] MEDS: DOXYCYCLINE HYCLATE 100 MG TABLET PO SCH (20:21)
[2025-05-11] VITALS (32 sets, daily range): BP systolic 104–151; BP diastolic 63–72; TEMP 97.5–99.5; O2SAT 90–99
[2025-05-11 06:04] LABS: PLATELET COUNT, AUTOMATED 222 10^3/uL (150-450)
[2025-05-11 06:15] LABS: CALCIUM LEVEL 8.5 MG/DL (8.5-10.1); CARBON DIOXIDE LEVEL 26.0 MMOL/L (20-31); CHLORIDE LEVEL 104.0 MMOL/L (98-107); CREATININE FOR GFR 0.86 MG/DL (0.55-1.30); GLOMERULAR FILTRATION RATE 81.7 (>51); MAGNESIUM LEVEL 1.9 MG/DL (1.8-2.4); POTASSIUM SERUM 3.4 MMOL/L (3.5-5.1); SODIUM LEVEL 143.0 MMOL/L (136-145)
[2025-05-11 06:48] LABS: LYMPHOCYTES 3 % (16-44); METAMYELOCYTES 1 % (0-0); MONOCYTES 6 % (0-5); NEUTROPHILS 81 % (28-66); PLASMA CELL 1 % (0-0)
[2025-05-11 06:49] LABS: PLATELET ESTIMATE NORMAL (NORMAL)
[2025-05-11] MEDS: POTASSIUM CHLORIDE 10MEQ SR TABLET PO ONE (10:24)
[2025-05-11] MEDS ORDERED: FUROSEMIDE 20 MG/2 ML VIAL IV PRN (14:10)
[2025-05-12] VITALS (33 sets, daily range): BP systolic 135–145; BP diastolic 65–88; TEMP 97.1–98.9; O2SAT 91–97
[2025-05-12] MEDS: ACETAMINOPHEN 325 MG TAB PO PRN (03:49)
[2025-05-12 05:55] LABS: PLATELET COUNT, AUTOMATED 266 10^3/uL (150-450)
[2025-05-12 06:27] LABS: CALCIUM LEVEL 8.5 MG/DL (8.5-10.1); CARBON DIOXIDE LEVEL 26.0 MMOL/L (20-31); CHLORIDE LEVEL 101.0 MMOL/L (98-107); CREATININE FOR GFR 0.83 MG/DL (0.55-1.30); GLOMERULAR FILTRATION RATE 85.3 (>51); MAGNESIUM LEVEL 2.0 MG/DL (1.8-2.4); POTASSIUM SERUM 3.5 MMOL/L (3.5-5.1); SODIUM LEVEL 138.0 MMOL/L (136-145)
[2025-05-12 06:48] LABS: LYMPHOCYTES 5 % (16-44); MONOCYTES 1 % (0-5); MYELOCYTES 1 % (0-0); NEUTROPHILS 86 % (28-66); PLASMA CELL 2 % (0-0); PLATELET ESTIMATE NORMAL (NORMAL)
[2025-05-12 06:49] LABS: PLATELET CLUMPS SMALL AMT
[2025-05-12] MEDS: POTASSIUM CHLORIDE 10MEQ SR TABLET PO ONE (07:57)
[2025-05-12 18:47] LABS: URINE STREP PNEUMONIAE ANTIGEN Detected (Not Detected)
[2025-05-12] MEDS: diphenhydrAMINE 50 MG/ML VIAL IV ONE (22:17)
[2025-05-13] VITALS (28 sets, daily range): BP systolic 127–146; BP diastolic 62–75; TEMP 97–98.5; O2SAT 91–98
[2025-05-13] MEDS: BENZONATATE 100 MG CAPSULE PO PRN (01:50)
[2025-05-13 06:12] LABS: PLATELET COUNT, AUTOMATED 296 10^3/uL (150-450)
[2025-05-13 06:45] LABS: CALCIUM LEVEL 8.6 MG/DL (8.5-10.1); CARBON DIOXIDE LEVEL 26 MMOL/L (20-31); CHLORIDE LEVEL 100 MMOL/L (98-107); CREATININE FOR GFR 0.75 MG/DL (0.55-1.30); GLOMERULAR FILTRATION RATE > 90.0 (>51); MAGNESIUM LEVEL 1.9 MG/DL (1.8-2.4); POTASSIUM SERUM 3.7 MMOL/L (3.5-5.1); SODIUM LEVEL 137 MMOL/L (136-145)
[2025-05-13 06:46] LABS: LYMPHOCYTES 6 % (16-44); METAMYELOCYTES 2 % (0-0); MONOCYTES 7 % (0-5); MYELOCYTES 4 % (0-0); NEUTROPHILS 80 % (28-66); PLATELET ESTIMATE NORMAL (NORMAL); PROMYELOCYTES 1 % (0-0)
[2025-05-13] MEDS ORDERED: PILL CUTTER 1 EACH XX PRN (09:20)
[2025-05-13] MEDS: guaiFENesin DM LIQ 10ML UD PO SCH (12:14)
[2025-05-13] MEDS: METOPROLOL TART 12.5 MG PER 1/2 TAB PO SCH (12:15)
[2025-05-13] MEDS: ceFAZolin SODIUM 2 GM in DEXTROSE 5% (D5W) ADV/MINI-BAG 50 ML IV SCH (15:15)
[2025-05-14] VITALS (32 sets, daily range): BP systolic 114–153; BP diastolic 57–80; TEMP 96.6–97.7; O2SAT 90–99
[2025-05-14 05:52] LABS: BASO # 0.1 10^3/uL (0.0-0.2); BASO % 0.3 % (0.0-1.0); EOS # 0.0 10^3/uL (0.0-0.5); EOS % 0.0 % (0.0-3.0); LYMPH # 1.0 10^3/uL (1.5-5.0); LYMPH % 5.7 % (24.0-44.0); MONO # 0.9 10^3/uL (0.0-0.8); MONO % 5.2 % (2.0-8.0); NEUTROPHILS # 13.4 10^3/uL (1.5-8.5); NEUTROPHILS % 74.7 % (36.0-66.0); PLATELET COUNT, AUTOMATED 285 10^3/uL (150-450)
[2025-05-14 06:15] LABS: CALCIUM LEVEL 8.0 MG/DL (8.5-10.1); CARBON DIOXIDE LEVEL 29 MMOL/L (20-31); CHLORIDE LEVEL 103 MMOL/L (98-107); CREATININE FOR GFR 0.76 MG/DL (0.55-1.30); GLOMERULAR FILTRATION RATE > 90.0 (>51); MAGNESIUM LEVEL 1.8 MG/DL (1.8-2.4); POTASSIUM SERUM 3.7 MMOL/L (3.5-5.1); SODIUM LEVEL 142 MMOL/L (136-145)
[2025-05-14 06:42] LABS: T P ELECTROPHORESIS SO 6.0 g/dL (6.1-8.1)
[2025-05-14] MEDS: ENOXAPARIN 40 MG/0.4 ML SYRINGE (J1650 PER 10MG) SC ONE (10:11)
[2025-05-14] MEDS: CYCLOBENZAPRINE 10 MG TABLET PO SCH (10:11)
[2025-05-14 14:01] LABS: PROTEIN CREATININE RATIO 507 mg/g creat (24-184); T PROTEIN CREATININE RATIO 0.507 (0.024-0.184); UPEP CREATININE 134 mg/dL (20-275); UPEP TOTAL PROTEIN 68 mg/dL (5-24)
[2025-05-14] MEDS: SYMBICORT 80/4.5MCG INHALER 6GM INH SCH (19:54)
[2025-05-15] VITALS (28 sets, daily range): BP systolic 117–132; BP diastolic 59–68; TEMP 97–98.6; O2SAT 90–98
[2025-05-15 06:33] LABS: PLATELET COUNT, AUTOMATED 298 10^3/uL (150-450)
[2025-05-15 06:43] LABS: ALBUMIN SPEP 2.7 g/dL (3.8-4.8); ALPHA-1-GLOBULINS SO 0.5 g/dL (0.2-0.3); ALPHA-2-GLOBULINS SO 1.0 g/dL (0.5-0.9); BETA 2 GLOBULIN 0.4 g/dL (0.2-0.5); BETA-GLOBULIN SO 0.4 g/dL (0.4-0.6); GAMMA GLOBULINS SO 0.9 g/dL (0.8-1.7)
[2025-05-15 06:49] LABS: LYMPHOCYTES 7 % (16-44); METAMYELOCYTES 2 % (0-0); MONOCYTES 2 % (0-5); MYELOCYTES 1 % (0-0); NEUTROPHILS 85 % (28-66); PLATELET ESTIMATE NORMAL (NORMAL)
[2025-05-15 06:59] LABS: CALCIUM LEVEL 7.9 MG/DL (8.5-10.1); CARBON DIOXIDE LEVEL 30 MMOL/L (20-31); CHLORIDE LEVEL 102 MMOL/L (98-107); CREATININE FOR GFR 0.75 MG/DL (0.55-1.30); GLOMERULAR FILTRATION RATE > 90.0 (>51); MAGNESIUM LEVEL 1.8 MG/DL (1.8-2.4); POTASSIUM SERUM 3.4 MMOL/L (3.5-5.1); SODIUM LEVEL 141 MMOL/L (136-145)
[2025-05-15 07:57] LABS: UPEP ALBUMIN 14 %; URINE ALPHA 1 GLOBULIN 14 %; URINE ALPHA 2 GLOBULIN 23 %; URINE BETA GLOBULIN 28 %; URINE GAMMA GLOBULIN 23 %
[2025-05-15] MEDS ORDERED: predniSONE 10 MG TAB PO SCH (09:00)
[2025-05-15] MEDS: MAG SULF 1GM/100ML (MAG RUN) 1 GM in IV 1 EA IV ONE (09:37)
[2025-05-15] MEDS: ENOXAPARIN 40 MG/0.4 ML SYRINGE (J1650 PER 10MG) SC SCH (09:37)
[2025-05-15] MEDS: POTASSIUM CHLORIDE 10MEQ SR TABLET PO ONE (09:38)
[2025-05-15] MEDS: predniSONE 20 MG TAB PO SCH (09:38)
[2025-05-15 23:32] LABS: MYCOPLASMA PNEUMONIAE IGG 1.79 (<=0.90); MYCOPLASMA PNEUMONIAE IGM 1041.0 U/mL (<770)
[2025-05-16] VITALS (28 sets, daily range): BP systolic 109–145; BP diastolic 53–76; TEMP 97.1–97.8; O2SAT 89–99
[2025-05-16 06:49] LABS: BASO # 0.1 10^3/uL (0.0-0.2); BASO % 0.3 % (0.0-1.0); EOS # 0.0 10^3/uL (0.0-0.5); EOS % 0.0 % (0.0-3.0); LYMPH # 1.9 10^3/uL (1.5-5.0); LYMPH % 9.0 % (24.0-44.0); MONO # 0.7 10^3/uL (0.0-0.8); MONO % 3.2 % (2.0-8.0); NEUTROPHILS # 16.5 10^3/uL (1.5-8.5); NEUTROPHILS % 78.9 % (36.0-66.0); PLATELET COUNT, AUTOMATED 320 10^3/uL (150-450)
[2025-05-16 06:50] LABS: CALCIUM LEVEL 8.3 MG/DL (8.5-10.1); CARBON DIOXIDE LEVEL 31 MMOL/L (20-31); CHLORIDE LEVEL 100 MMOL/L (98-107); CREATININE FOR GFR 0.73 MG/DL (0.55-1.30); GLOMERULAR FILTRATION RATE > 90.0 (>51); MAGNESIUM LEVEL 2.0 MG/DL (1.8-2.4); POTASSIUM SERUM 3.6 MMOL/L (3.5-5.1); SODIUM LEVEL 139 MMOL/L (136-145)
[2025-05-16] MEDS: POTASSIUM CHLORIDE 10MEQ SR TABLET PO ONE (11:30)
[2025-05-17] VITALS (15 sets, daily range): BP systolic 112–133; BP diastolic 60–63; TEMP 97.1–97.9; O2SAT 94–100
[2025-05-17 06:00] LABS: CALCIUM LEVEL 7.6 MG/DL (8.5-10.1); CARBON DIOXIDE LEVEL 29 MMOL/L (20-31); CHLORIDE LEVEL 102 MMOL/L (98-107); CREATININE FOR GFR 0.69 MG/DL (0.55-1.30); GLOMERULAR FILTRATION RATE > 90.0 (>51); MAGNESIUM LEVEL 1.7 MG/DL (1.8-2.4); POTASSIUM SERUM 3.7 MMOL/L (3.5-5.1); SODIUM LEVEL 139 MMOL/L (136-145)
[2025-05-17] MEDS: MAG SULF 1GM/100ML (MAG RUN) 1 GM in IV 1 EA IV SCH (08:26)
[2025-05-17] MEDS: POTASSIUM CHLORIDE 10MEQ SR TABLET PO ONE (08:28)
[2025-05-17] MEDS ORDERED: BENZ-18 PO (11:42)
[2025-05-17] MEDS ORDERED: METO1TAB87 PO (11:42)
[2025-05-17] MEDS ORDERED: PRED10TA2 PO (11:42)
[2025-05-17] MEDS ORDERED: GUAI1SYP10 PO (11:42)
[2025-05-17] MEDS ORDERED: SYMB80INH INH (11:42)
[2025-05-17] MEDS ORDERED: OSEL75CA2 PO (11:42)
[2025-05-17] MEDS ORDERED: RISATAB3 PO (11:42)
[2025-05-17] MEDS ORDERED: CYCL10TA20 PO (11:42)
[2025-05-17] MEDS ORDERED: CEPH500C PO (11:42)
[2025-05-18] MEDS ORDERED: predniSONE 10 MG TAB PO SCH (09:00)
[2025-05-21] MEDS ORDERED: predniSONE 20 MG TAB PO SCH (09:00)
[2025-05-24] MEDS ORDERED: predniSONE 10 MG TAB PO SCH (09:00)
== END 2025-05-17 19:30 | disposition home health service (06) | DRG 871 ==
LOC: M ED 11:09 → EDBD 11:09 → M ED INP 13:35 → EEVIPCON 13:35 → M PCU 15:35
PROVIDERS: ADMIT Internal Medicine; ATTEND Student in an Organized Health Care Education/Training Program
PROC: B246ZZZ Ultrasonography of Right and Left Heart (ICD-10-PCS; principal; 2025-05-10)
DX: A41.01 Sepsis due to Methicillin susceptible Staphylococcus aureus (principal); J10.01 Influenza due to other identified influenza virus with the same other identified influenza virus pneumonia; J96.01 Acute respiratory failure with hypoxia; J15.211 Pneumonia due to Methicillin susceptible Staphylococcus aureus; J85.0 Gangrene and necrosis of lung; E87.1 Hypo-osmolality and hyponatremia; E87.3 Alkalosis; I49.5 Sick sinus syndrome; G90.A Postural orthostatic tachycardia syndrome [POTS]; I10 Essential (primary) hypertension; E78.5 Hyperlipidemia, unspecified; M32.9 Systemic lupus erythematosus, unspecified; E03.9 Hypothyroidism, unspecified; K21.9 Gastro-esophageal reflux disease without esophagitis; F43.10 Post-traumatic stress disorder, unspecified; M79.7 Fibromyalgia; E87.6 Hypokalemia; F31.9 Bipolar disorder, unspecified; E66.813 Obesity, class 3; G47.00 Insomnia, unspecified; E83.42 Hypomagnesemia; R19.7 Diarrhea, unspecified; D50.9 Iron deficiency anemia, unspecified; G89.4 Chronic pain syndrome; I25.10 Atherosclerotic heart disease of native coronary artery without angina pectoris; F41.9 Anxiety disorder, unspecified; Z91.018 Allergy to other foods; Z95.0 Presence of cardiac pacemaker; Z98.84 Bariatric surgery status; Z87.891 Personal history of nicotine dependence; Z79.82 Long term (current) use of aspirin; Z79.890 Hormone replacement therapy; Z79.899 Other long term (current) drug therapy; Z88.0 Allergy status to penicillin; Z88.5 Allergy status to narcotic agent; Z88.8 Allergy status to other drugs, medicaments and biological substances; Z91.013 Allergy to seafood; Z68.36 Body mass index [BMI] 36.0-36.9, adult